=== PATIENT | male | born 1930 | race Caucasian/White ===

== ENCOUNTER 2018-08-16 10:15 | Inpatient (IN) ==
[2018-08-16 11:07] LABS: Baso # (Auto) 0.1 th/mm3 (0.0-0.2); Baso % (Auto) 0.8 % (0.0-2.0); Eos # (Auto) 0.3 th/mm3 (0.0-0.4); Eos % (Auto) 2.7 % (0.0-4.0); Hematocrit 21.2 % (39.0-51.0); Lymph # (Auto) 2.1 th/mm3 (1.0-4.8); Lymph % (Auto) 21.4 % (9.0-44.0); Mean Corpuscular HGB Conc 32.8 % (32.0-36.0); Mean Corpuscular Hemoglobin 26.7 pg (27.0-34.0); Mean Corpuscular Volume 81.6 fL (80.0-100.0); Mean Platelet Volume 7.1 fL (7.0-11.0); Mono # (Auto) 0.8 th/mm3 (0.0-0.9); Mono % (Auto) 7.8 % (0.0-8.0); Neut # (Auto) 6.5 th/mm3 (1.8-7.7); Neut % (Auto) 67.3 % (16.0-70.0); Platelet Count 374 th/mm3 (150-450); Red Cell Distribution Width 15.6 % (11.6-17.2); White Blood Count 9.6 th/mm3 (4.0-11.0)
[2018-08-16 11:19] LABS: Alanine Aminotransferase 20 U/L (12-78); Albumin 2.8 g/dL (3.4-5.0); Anion Gap 9 meq/L (5-15); Aspartate Aminotransferase 7 U/L (15-37); Blood Urea Nitrogen 12 mg/dL (7-18); Calcium 7.9 mg/dL (8.5-10.1); Carbon Dioxide 23.5 meq/L (21.0-32.0); Chloride 108 meq/L (98-107); Glomerular Filtration Rate 72 mL/min (>89); Glucose,Random 120 mg/dL (74-106); Potassium 3.8 meq/L (3.5-5.1); Sodium 140 meq/L (136-145)
[2018-08-16 11:24] LABS: Alkaline Phosphatase 68 U/L (45-117); Total Protein 6.3 g/dL (6.4-8.2); Troponin I 0.02 ng/mL (0.02-0.05)
--- NOTE | 2018-08-16 11:25 | XR ---
EXAM DATE: 08/16/2018 10:44 AM EDT AGE/SEX: 87 years / Male INDICATIONS: . Shortness of breath. CLINICAL DATA: This is the patient's initial encounter. Patient reports that signs and symptoms have been present for 1 day and indicates a pain score of 0/10. MEDICAL/SURGICAL HISTORY: Hypercholesterolemia. Hypertension. Cholecystectomy. COMPARISON: No prior exams available for comparison. FINDINGS: There is a trace right-sided pleural effusion with minimal by basilar airspace disease. Senescent int erstitial changes. The cardiomediastinal contours are unremarkable. Osseous structures are intact. CONCLUSION: 1. Trace right pleural effusion. 2. Minimal bibasilar airspace disease, presumably atelectasis. Electronically signed by: Bal Coronado MD 08/16/2018 11:23 AM EDT
[2018-08-16] MEDS ORDERED: Acetaminophen 325 MG Tablet PO PRN (12:27)
--- NOTE | 2018-08-16 12:56 | ED ---
HPI General Chief complaint: Respiratory Symptoms Stated complaint: SOB,Hip Complaint/Doctor Sent Time Seen by Provider: 08/16/18 10:42 Source: patient Mode of arrival: ambulatory Limitations: no limitations History of Present Illness HPI narrative: Patient is an 87-year-old male, past medical history significant for hypertension and hyperlipidemia, who presents with complaint of worsening fatigue and dyspnea over the last several weeks. Several days ago he was mowing the lawn and began to have pressure-like chest pain and dyspnea which resolved with rest. He states that he does not feel like he can do as much as he used to. This never happened before. No fevers nor chills. No cough nor congestion. No abdominal pain. Onset (ago): week(s) Radiation: non-radiation Severity: moderate Pain Consistency: intermittent Exacerbating factors: none Associated symptoms: Reports chest pain and shortness of breath Treatments prior to arrival: Reports none Related Data Home Medications Medication Instructions Recorded Confirmed amlodipine 10 mg PO DAILY 08/16/18 08/16/18 aspirin 81 mg PO DAILY 08/16/18 08/16/18 hydrochlorothiazide 12.5 mg PO DAILY 08/16/18 08/16/18 lisinopril 20 mg PO DAILY 08/16/18 08/16/18 simvastatin 20 mg PO QPM 08/16/18 08/16/18 Allergies Allergy/AdvReac Type Severity Reaction Status Date / Time No Known Allergies Allergy Verified 08/16/18 10:31 Review of Systems ROS: all other systems reviewed are negative [facility] Medical History Medical History HTN (hypertension) (Acute) High cholesterol (Acute) Surgical History Surgical History S/P cholecystectomy (Acute) Social History Social History Substance History: No History of Abuse Second Hand Smoke Exposure: No Smoking Status: Former smoker How Often Do You Have a Drink Containing Alcohol: 4 or more times a week Recent Travel in [facility] within the Last 8 Weeks: No Recent Out of Country Travel within the Last 8 Weeks: No Immunization History Tetanus Immunization: >5 Years Exam Narrative Exam Narrative: GENERAL: Well-appearing, elderly male in no acute distress SKIN: Focused skin assessment warm/dry. No rashes. HEAD: Atraumatic. Normocephalic. EYES: Pupils equal and round. No scleral icterus. No injection or drainage. ENT: No nasal bleeding or discharge. Mucous membranes pink and moist. NECK: Trachea midline. No JVD. CARDIOVASCULAR: Regular rate and rhythm. Systolic murmur auscultated which radiates to the carotids. Intact and equal peripheral pulses. RESPIRATORY: No accessory muscle use. Clear to auscultation. Breath sounds equal bilaterally. GASTROINTESTINAL: Abdomen soft, non-tender, nondistended. Hepatic and splenic margins not palpable. MUSCULOSKELETAL: No obvious deformities. No clubbing. No cyanosis. No edema. NEUROLOGICAL: Awake and alert. No obvious cranial nerve deficits. Motor grossly within normal limits. Normal sensation. Normal speech. PSYCHIATRIC: Appropriate mood and affect; insight and judgment normal. Course Initial Documented Vital Signs Temperature 98.5 F 08/16/18 10:18 Pulse Rate 80 08/16/18 10:18 Respiratory Rate 20 08/16/18 10:18 Blood Pressure 137/77 08/16/18 10:18 Pulse Oximetry 99 08/16/18 10:18 Last Documented Vital Signs Temperature 98.5 F 08/16/18 10:18 Pulse Rate 63 08/16/18 10:51 Respiratory Rate 16 08/16/18 10:51 Blood Pressure 130/58 L 08/16/18 10:51 Pulse Oximetry 97 08/16/18 10:51 Medical Decision Making MDM Narrative Medical decision making narrative: Patient is an 87-year-old male who presents with complaint of dyspnea on exertion with several weeks of fatigue. He appears well. EKG shows LVH but no other ST or T wave changes. Labs reveal anemia but no other findings. Chest x-ray shows atelectasis but is otherwise unremarkable. I spoke with Dr. Booth, hospitalist on-call, whom agreed to admission for possible symptomatic aortic stenosis. Medical Screen Exam Complete: Yes Emergency Medical Condition: Yes Differential Diagnosis Differential Diagnosis: Differential diagnosis includes but is not limited to aortic stenosis, acute coronary syndrome, anemia. Medical Records Medical records reviewed: Yes I reviewed the patient's medical records. Lab Data Lab results reviewed: Yes I reviewed the patient's lab results. Result diagrams: 08/16/18 10:45 08/16/18 10:45 Lab Results 08/16/18 08/16/18 08/16/18 Range/Units 10:45 10:45 10:45 WBC 9.6 (4.0-11.0) th/mm3 RBC 2.60 L (4.50-5.90) mil/mm3 Hgb 7.0 L (13.0-17.0) gm/dL Hct 21.2 L (39.0-51.0) % MCV 81.6 (80.0-100.0) fL MCH 26.7 L (27.0-34.0) pg MCHC 32.8 (32.0-36.0) % RDW 15.6 (11.6-17.2) % Plt Count 374 (150-450) th/mm3 MPV 7.1 (7.0-11.0) fL Neut % (Auto) 67.3 (16.0-70.0) % Lymph % (Auto) 21.4 (9.0-44.0) % [place] % (Auto) 7.8 (0.0-8.0) % Eos % (Auto) 2.7 (0.0-4.0) % Baso % (Auto) 0.8 (0.0-2.0) % Neut # (Auto) 6.5 (1.8-7.7) th/mm3 Lymph # (Auto) 2.1 (1.0-4.8) th/mm3 [place] # (Auto) 0.8 (0.0-0.9) th/mm3 Eos # (Auto) 0.3 (0.0-0.4) th/mm3 Baso # (Auto) 0.1 (0.0-0.2) th/mm3 WBC Differential . Differential Comment Auto diff final D-Dimer Quant (PE/DVT) 0.33 (0.00-0.50) mg/L FEU Sodium 140 (136-145) meq/L Potassium 3.8 (3.5-5.1) meq/L Chloride 108 H (98-107) meq/L Carbon Dioxide 23.5 (21.0-32.0) meq/L Anion Gap 9 (5-15) meq/L BUN 12 (7-18) mg/dL Creatinine 0.98 (0.60-1.30) mg/dL Estimated GFR 72 L (>89) mL/min Random Glucose 120 H (74-106) mg/dL Calcium 7.9 L (8.5-10.1) mg/dL Total Bilirubin 0.4 (0.2-1.0) mg/dL AST 7 L (15-37) U/L ALT 20 (12-78) U/L Alkaline Phosphatase 68 (45-117) U/L Troponin I 0.02 (0.02-0.05) ng/mL Total Protein 6.3 L (6.4-8.2) g/dL Albumin 2.8 L (3.4-5.0) g/dL Imaging Data Attestation: I personally reviewed and interpreted this imaging study as follows : My impression: Atelectasis. Radiologist's impression: Chest X-Ray 08/16/18 10:44 CONCLUSION: 1. Trace right pleural effusion. 2. Minimal bibasilar airspace disease, presumably atelectasis. ECG Data EKG Prior to Arrival: No Attestation: I personally reviewed and interpreted this ECG as follows: (Sinus rhythm at a rate of 64 bpm. [address] but no ST or T wave changes.) Discharge Plan Discharge Disposition Patient Disposition: 30 Still Patient Discharge Condition Condition: Stable Discharge Details Diagnosis: LONG (dyspnea on exertion), Heart murmur Physicians Team ED Provider: Sheryl Devine Primary Care Provider: Braden Small Attending Provider: Isreal Booth Other Providers: Magen Diaz Discharge Interventions Interventions: Vital Signs Last Done: 08/16/18 10:31 Status ED Status: Admitted Patient
[2018-08-16] MEDS ORDERED: Sodium Chlor 0.9% Inj 250 ML IV.SIG SCH (13:00)
--- NOTE | 2018-08-16 14:29 | P.CONGI ---
History of Present Illness Consult date: 08/16/08 Consult reason: Anemia Chief complaint: dyspnea on exertion, History of Present Illness: This is an 87-year-old obese male who came in the hospital for evaluation on of fatigue, dyspnea, and chest pain with dyspnea with increased activity. Patient denies any previous history of any heart disease and is currently on no blood thinners. Labs drawn and reviewed showed hemoglobin at 7 , normal WBC count and normal bilirubin and LFTs. Gastroenterology was consulted to assist with patient's symptomatic anemia and evaluate further with a plan of care. Patient does note dark melena stools for approximately 1-2 months and states that she noted bright red rectal bleeding x1 event approximately 2 weeks ago in the toilet. Patient does note history of constipation with bowel movements every other day and positive for straining. Patient is a fair to poor historian and along with daughter is assisting with history. Patient is positive for daily EtOH intake of at least 2-3 beers. Patient denies any previous gastro-workup with no previous colonoscopy or endoscopy. Patient denies any current nausea or vomiting and no dyspepsia or dysphasia he denies any bloating and no symptoms of reflux. Patient also denies any abdominal pain at rest or to light palpation. <Jane Mcginnis - Last Filed: 08/16/18 14:34> Review of Systems All other systems reviewed negative except as stated in HPI <Jane Mcginnis - Last Filed: 08/16/18 14:34> PMFSH - History History Provided By: Patient - Medical History Medical History: Medical History (Last Reviewed 08/16/18 @ 12:51 by Sheryl Devine MD) HTN (hypertension) High cholesterol - Surgical History Surgical History: Surgical History (Last Reviewed 08/16/18 @ 12:51 by Sheryl Devine MD) S/P cholecystectomy - Tobacco History Second Hand Smoke Exposure: No Tobacco Use In Past 30 Days: No Smoking Status: Former smoker - Alcohol History How Often Do You Have a Drink Containing Alcohol: 4 or more times a week - Substance Use History Substance History: No History of Abuse - Travel History Recent Travel in the [place] Within the Last 8 Weeks: No Recent Travel Out of the Country Within the Last 8 Weeks: No - Immunization History Tetanus Immunization: >5 Years <Jane Mcginnis - Last Filed: 08/16/18 14:34> - Medical History Medical History: Medical History (Last Reviewed 08/16/18 @ 12:51 by Sheryl Devine MD) HTN (hypertension) High cholesterol - Surgical History Surgical History: Surgical History (Last Reviewed 08/16/18 @ 12:51 by Sheryl Devine MD) S/P cholecystectomy <Joe,Magen E - Last Filed: 08/16/18 22:22> Medications and Allergies Active Medications: Active Medications Acetaminophen (Tylenol) 650 mg PO Q4H PRN PRN Reason: Temp > 100.4 Al Hydroxide/Mg Hydroxide (Milk Of Magnesia Liq) 30 ml PO Q12H PRN PRN Reason: Mild Constipation Sodium Chloride (Ns Inj) 250 mls @ 15 mls/hr IV.SIG ONCE ANTONIA Stop: 08/17/18 05:39 Ondansetron HCl (Zofran Inj) 4 mg IV.PUSH Q6H PRN PRN Reason: NAUSEA OR VOMITING Senna/Docusate Sodium (Debra-Colace) 1 tab PO BID ANTONIA Sodium Chloride (Ns Flush) 2 ml IV.FLUSH UNSCH PRN PRN Reason: FLUSH AFTER USING IV ACCESS <Jane Mcginnis - Last Filed: 08/16/18 14:34> Active Medications: Active Medications Acetaminophen (Tylenol) 650 mg PO Q4H PRN PRN Reason: Temp > 100.4 Al Hydroxide/Mg Hydroxide (Milk Of Magnesia Liq) 30 ml PO Q12H PRN PRN Reason: Mild Constipation Flumazenil (Romazecon Inj) 0.2 mg IV.PUSH Q1M PRN PRN Reason: OVERSEDATION Haloperidol Lactate (Haldol Inj) 1 mg IV.PUSH Q15M PRN PRN Reason: for severe agitation Sodium Chloride (Ns Inj) 250 mls @ 15 mls/hr IV.SIG ONCE ANTONIA Stop: 08/17/18 05:39 Last Admin: 08/16/18 16:48 Dose: 15 mls/hr Lorazepam (Ativan) 2 mg PO Q2H PRN PRN Reason: for CIWA 11-14 Lorazepam (Ativan Inj) 2 mg IV.PUSH Q2H PRN PRN Reason: for CIWA 11-14 Lorazepam (Ativan Inj) 2 mg IV.PUSH Q1H PRN PRN Reason: for CIWA 15-20 Lorazepam (Ativan Inj) 2 mg IV.PUSH Q15M PRN PRN Reason: for CIWA > 20 Lorazepam (Ativan) 1 mg PO Q4H PRN PRN Reason: for CIWA 8-10 Lorazepam (Ativan Inj) 1 mg IV.PUSH Q4H PRN PRN Reason: for CIWA 8-10 Ondansetron HCl (Zofran Inj) 4 mg IV.PUSH Q6H PRN PRN Reason: NAUSEA OR VOMITING Polyethylene Glycol (Miralax) 17 gm PO DAILY [facility] Last Admin: 08/16/18 16:48 Dose: 17 gm Senna/Docusate Sodium (Debra-Colace) 1 tab PO BID [facility] Last Admin: 08/16/18 20:31 Dose: 1 tab Sodium Chloride (Ns Flush) 2 ml IV.FLUSH UNSCH PRN PRN Reason: FLUSH AFTER USING IV ACCESS Last Admin: 08/16/18 20:32 Dose: 2 ml <Magen Diaz E - Last Filed: 08/16/18 22:22> Allergies Allergy/AdvReac Type Severity Reaction Status Date / Time No Known Allergies Allergy Verified 08/16/18 10:31 Home Medications Medication Instructions Recorded Confirmed Type amlodipine 10 mg PO DAILY 08/16/18 08/16/18 History aspirin 81 mg PO DAILY 08/16/18 08/16/18 History hydrochlorothiazide 12.5 mg PO DAILY 08/16/18 08/16/18 History lisinopril 20 mg PO DAILY 08/16/18 08/16/18 History simvastatin 20 mg PO QPM 08/16/18 08/16/18 History Exam Vital signs: Vital Signs 08/16/18 10:18 08/16/18 10:31 08/16/18 10:51 Temperature 98.5 F Pulse Rate 80 63 63 Respiratory Rate 20 20 16 Blood Pressure 137/77 130/58 L 130/58 L Pulse Oximetry 99 97 97 08/16/18 13:29 Temperature Pulse Rate 54 L Respiratory Rate 19 Blood Pressure 124/57 L Pulse Oximetry 96 Intake & Output 08/15/18 08/16/18 08/16/18 18:59 06:59 18:59 Weight 85.275 kg - Constitutional mild distress, morbidly obese, disheveled (Fair to poor historian), cooperative - Routine HEENT Exam Head: Present: normocephalic ENT: Present: mucous membranes dry (Pale) - Routine Respiratory Exam Present: accessory muscle use (Low volumes mild dyspneic exertion at rest), diminished air movement - Routine Cardiovascular Exam Present: murmur ([place] systolic murmur) - Routine Abdominal Exam Present: soft, normoactive bowel sounds (No abdominal pain to light palpation) - Routine Skin Exam Present: intact, pallor - Routine Neurological Exam Present: alert <Jane Mcginnis - Last Filed: 08/16/18 14:34> Vital signs: Vital Signs 08/16/18 10:18 08/16/18 10:31 08/16/18 10:51 Temperature 98.5 F Pulse Rate 80 63 63 Respiratory Rate 20 20 16 Blood Pressure 137/77 130/58 L 130/58 L Pulse Oximetry 99 97 97 08/16/18 13:29 08/16/18 16:15 08/16/18 17:33 Temperature 96 F L 96 F L Pulse Rate 54 L 58 L 58 L Respiratory Rate 19 18 18 Blood Pressure 124/57 L 140/70 140/70 Pulse Oximetry 96 95 95 08/16/18 20:00 08/16/18 21:05 08/16/18 21:24 Temperature 97.8 F 97.8 F 97.8 F Pulse Rate 56 L 60 58 L Respiratory Rate 16 16 16 Blood Pressure 116/56 L 122/59 L 120/60 Pulse Oximetry 96 94 L 94 L Intake & Output 08/16/18 08/16/18 08/17/18 06:59 18:59 06:59 Intake Total 0 / 0 450 / 450 Balance 0 / 0 450 / 450 Weight 85.275 kg Intake: Other 50 / 50 Rbc As-3 Leukoreduced Unit 50 / 50 [id number] Intake (Blood Product) Amt 0 / 0 400 / 400 Rbc As-3 Leukoreduced Unit 0 / 0 [id number] Rbc As-3 Leukoreduced Unit 0 / 0 400 / 400 [id number] Other: Weight On Admission 82.9 kg <Magen Diaz - Last Filed: 08/16/18 22:22> Results - Labs CBC & Chem 7: 08/16/18 10:45 08/16/18 10:45 Labs: Laboratory Results - last 24 hr 08/16/18 08/16/18 08/16/18 10:45 10:45 10:45 WBC 9.6 RBC 2.60 L Hgb 7.0 L Hct 21.2 L MCV 81.6 MCH 26.7 L MCHC 32.8 RDW 15.6 Plt Count 374 MPV 7.1 Neut % (Auto) 67.3 Lymph % (Auto) 21.4 [place] % (Auto) 7.8 Eos % (Auto) 2.7 Baso % (Auto) 0.8 Neut # (Auto) 6.5 Lymph # (Auto) 2.1 [place] # (Auto) 0.8 Eos # (Auto) 0.3 Baso # (Auto) 0.1 WBC Differential . Differential Comment Auto diff final D-Dimer Quant (PE/DVT) 0.33 Sodium 140 Potassium 3.8 Chloride 108 H Carbon Dioxide 23.5 Anion Gap 9 BUN 12 Creatinine 0.98 Estimated GFR 72 L Random Glucose 120 H Calcium 7.9 L Total Bilirubin 0.4 AST 7 L ALT 20 Alkaline Phosphatase 68 Troponin I 0.02 Total Protein 6.3 L Albumin 2.8 L Blood Type MTS Gel Crossmatch 08/16/18 13:30 WBC RBC Hgb Hct MCV MCH MCHC RDW Plt Count MPV Neut % (Auto) Lymph % (Auto) [place] % (Auto) Eos % (Auto) Baso % (Auto) Neut # (Auto) Lymph # (Auto) [place] # (Auto) Eos # (Auto) Baso # (Auto) WBC Differential Differential Comment D-Dimer Quant (PE/DVT) Sodium Potassium Chloride Carbon Dioxide Anion Gap BUN Creatinine Estimated GFR Random Glucose Calcium Total Bilirubin AST ALT Alkaline Phosphatase Troponin I Total Protein Albumin Blood Type AB Positive MTS Gel Crossmatch See Detail - Imaging Impressions Chest X-Ray 08/16/18 10:44 CONCLUSION: 1. Trace right pleural effusion. 2. Minimal bibasilar airspace disease, presumably atelectasis. <Jane Mcginnis - Last Filed: 08/16/18 14:34> - Labs CBC & Chem 7: 08/16/18 10:45 08/16/18 10:45 Labs: Laboratory Results - last 24 hr 08/16/18 08/16/18 08/16/18 10:45 10:45 10:45 WBC 9.6 RBC 2.60 L Hgb 7.0 L Hct 21.2 L MCV 81.6 MCH 26.7 L MCHC 32.8 RDW 15.6 Plt Count 374 MPV 7.1 Neut % (Auto) 67.3 Lymph % (Auto) 21.4 [place] % (Auto) 7.8 Eos % (Auto) 2.7 Baso % (Auto) 0.8 Neut # (Auto) 6.5 Lymph # (Auto) 2.1 [place] # (Auto) 0.8 Eos # (Auto) 0.3 Baso # (Auto) 0.1 WBC Differential . Differential Comment Auto diff final D-Dimer Quant (PE/DVT) 0.33 Sodium 140 Potassium 3.8 Chloride 108 H Carbon Dioxide 23.5 Anion Gap 9 BUN 12 Creatinine 0.98 Estimated GFR 72 L Random Glucose 120 H Calcium 7.9 L Total Bilirubin 0.4 AST 7 L ALT 20 Alkaline Phosphatase 68 Total Creatine Kinase Troponin I 0.02 Total Protein 6.3 L Albumin 2.8 L Blood Type Antibody Screen MTS Gel Crossmatch Bld Prod Order Comment 08/16/18 08/16/18 13:30 19:08 WBC RBC Hgb Hct MCV MCH MCHC RDW Plt Count MPV Neut % (Auto) Lymph % (Auto) [place] % (Auto) Eos % (Auto) Baso % (Auto) Neut # (Auto) Lymph # (Auto) [place] # (Auto) Eos # (Auto) Baso # (Auto) WBC Differential Differential Comment D-Dimer Quant (PE/DVT) Sodium Potassium Chloride Carbon Dioxide Anion Gap BUN Creatinine Estimated GFR Random Glucose Calcium Total Bilirubin AST ALT Alkaline Phosphatase Total Creatine Kinase 89 Troponin I 0.02 Total Protein Albumin Blood Type AB Positive Antibody Screen Negative MTS Gel Crossmatch See Detail Bld Prod Order Comment - Imaging Impressions Chest X-Ray 08/16/18 10:44 CONCLUSION: 1. Trace right pleural effusion. 2. Minimal bibasilar airspace disease, presumably atelectasis. <Magen Diaz E - Last Filed: 08/16/18 22:22> Assessment and Plan - Plan 87-year-old obese male who came in the hospital for evaluation on 08/16/2018 of fatigue, dyspnea, and chest pain with dyspnea with increased activity. Patient denies any previous history of any heart disease and is currently on no blood thinners. Labs drawn and reviewed showed hemoglobin at 7, normal WBC count and normal bilirubin and LFTs. Gastroenterology was consulted to assist with patient's symptomatic anemia and evaluate further with a plan of care. Patient does note dark melena stools for approximately 1-2 months and states that she noted bright red rectal bleeding x1 event approximately 2 weeks ago in the toilet. Patient does note history of constipation with bowel movements every other day and positive for straining. Patient is a fair to poor historian and along with daughter is assisting with history. Patient is positive for daily EtOH intake of at least 2-3 beers. Patient denies any previous gastro- workup with no previous colonoscopy or endoscopy. Patient denies any current nausea or vomiting and no dyspepsia or dysphasia he denies any bloating and no symptoms of reflux. Patient also denies any abdominal pain at rest or to light palpation. Symptomatic anemia hemoglobin 7 on admission patient is preparing to receive transfusion. This is probably due to upper and lower GI bleeds. Melena stools for at least 1-2 months History of constipation normal bowel regimen every other day with straining Bright red rectal bleeding x1 event approximately 2 weeks ago No history of EGD or colonoscopy or GI workup ever EtOH daily usage with 2-3 beers a day, bilirubin and LFTs are normal Chest pain and dyspnea with exertion noted on admission, cooing systolic murmur probably related to aortic valvular disease Plan Diet cardiac diet for now PPI IV twice daily Check Hemoccult, pending Monitor labs and transfuse as needed, call GI for any acute obvious bleeding Patient will need cardiac workup and clearance before any further GI testing can be done. Once cleared patient will need EGD and colonoscopy Bowel regimen will start MiraLAX daily Further recommendations to follow Patient was seen per myself and Dr. Diaz, note was written on his behalf <Jane Mcginnis M - Last Filed: 08/16/18 14:34> - Plan Patient seen and examined Agree with above history and physical Continue with current supportive care Monitor labs <Magen Diaz - Last Filed: 08/16/18 22:22>
--- NOTE | 2018-08-16 16:19 | ECHRPT ---
Indication: SHORTNESS OF BREATH CONCLUSIONS The left ventricular systolic function is grossly normal on limited imaging. Mild concentric left ventricular hypertrophy. The left ventricular systolic function is normal with an estimated ejection fraction in the range of 55-60%. A possible atrial level shunt is demonstrated by color flow Doppler interrogation, clinical correlat ion recommended. The aortic root and proximal ascending aorta are not well visualized. Mild mitral annular calcification. Mild mitral valve regurgitation. Aortic valve sclerosis is present. Aortic valve mean gradient is 42 mmHg. Mild aortic valve regurgitation. Diffuse calcification of the aortic valve. Severe aortic valve stenosis. Aortic valve area is 0.54 cm. There is mild tricuspid valve regurgitation. The estimated pulmonary arterial pressure is 55.4 mmHg. There is less than 50% respiratory change in dimension of the inferior vena cava (abnormal). BP: / HR: Rhythm: Sinus MEASUREMENTS (Male / Female) Normal Values Technical Quality:Fair 2D ECHO LV Diastolic Diameter PLAX 5.2 cm 4.2 - 5.9 / 3.9 - 5.3 cm LV Systolic Diameter PLAX 3.9 cm IVS Diastolic Thickness 1.1 cm 0.6 - 1.0 / 0.6 - 0.9 cm LVPW Diastolic Thickness 1.1 cm 0.6 - 1.0 / 0.6 - 0.9 cm LV Relative Wall Thickness 0.4 RV Internal Dim ED PLAX 2.4 cm LVOT Diameter 2.1 cm Aortic Root Diameter 3.4 cm LA Systolic Diameter LX 3.4 cm 3.0 - 4.0 / 2.7 - 3.8 cm DOPPLER AV Peak Velocity 451.0 cm/s AV Peak Gradient 81.0 mmHg AV Mean Gradient 42.0 mmHg AV Velocity Time Integral 117.0 cm AI Peak Velocity 353.0 cm/s AI Peak Gradient 49.8 mmHg AI Pressure Half Time 359.0 ms LVOT Peak Velocity 75.2 cm/s LVOT Peak Gradient 2.3 mmHg LVOT Velocity Time Integral 18.2 cm AV Area Cont Eq vti 0.5 cm AV Area Cont Eq pk 0.6 cm Mitral E Point Velocity 110.0 cm/s Mitral A Point Velocity 56.8 cm/s Mitral E to A Ratio 1.9 LV E' Lateral Velocity 11.5 cm/s Mitral E to LV E' Lateral Ratio 9.6 LV E' Septal Velocity 6.1 cm/s Mitral E to LV E' Septal Ratio 17.9 TR Peak Velocity 337.0 cm/s TR Peak Gradient 45.0 mmHg Right Atrial Pressure 10.0 mmHg Pulmonary Artery Systolic Pressu 55.4 mmHg Right Ventricular Systolic Press 55.4 mmHg PV Peak Velocity 79.7 cm/s PV Peak Gradient 2.5 mmHg FINDINGS LEFT VENTRICLE The left ventricular systolic function is grossly normal on limited imaging. Mild concentric left ventricular hypertrophy. The left ventricular systolic function is normal with an estimated ejection fraction in the range of 55-60%. RIGHT VENTRICLE Normal right ventricular size and systolic function. LEFT ATRIUM The left atrial size is normal. RIGHT ATRIUM The right atrial size is normal. ATRIAL SEPTUM A possible atrial level shunt is demonstrated by color flow Doppler interrogation, clinical correlat ion recommended. AORTA The aortic root and proximal ascending aorta are not well visualized. MITRAL VALVE Mild mitral annular calcification. Mild mitral valve regurgitation. AORTIC VALVE Aortic valve sclerosis is present. Aortic valve mean gradient is 42 mmHg. Mild aortic valve regurgitation. Trileaflet aortic valve. Diffuse calcification of the aortic valve. Severe aortic valve stenosis. Aortic valve area is 0.54 cm. TRICUSPID VALVE There is mild tricuspid valve regurgitation. The estimated pulmonary arterial pressure is 55.4 mmHg. PULMONARY VALVE No pulmonary valve regurgitation or stenosis. VESSELS There is less than 50% respiratory change in dimension of the inferior vena cava (abnormal). PERICARDIUM No pericardial effusion. Andrae Calzada MD, FACC (Electronically Signed) Final Date:16 August 2018 16:18
[2018-08-16] MEDS: Polyethylene Glycol 3350 17 GM Packet PO SCH (16:48)
--- NOTE | 2018-08-16 16:52 | ECG ---
Date Performed: 08/16/2018 Time Performed: 10:30:05 PTAGE: 87 years EKG: Sinus rhythm LEFT VENTRICULAR HYPERTROPHY AND ST-T CHANGE Early R-wave transition ABNORMAL ECG PREVIOUS TRACING : 03/06/2013 04.21 Compared to previous tracing, patient now has criteria for left ventricular hypertrophy. The early R-wave transition is new. The PVC's have resolved. Clinical c orrelation is recommended DOCTOR: Sulma Piña Interpretating Date/Time 08/16/2018 16:45:01
--- NOTE | 2018-08-16 17:02 | P.CONCA ---
History of Present Illness Service: Cardiology Consult date: 08/16/18 Reason for Consult: Severe aortic valve stenosis Primary Care Provider: Braden Small MD Chief Complaint: Weakness and shortness of breath History of Present Illness: This is an 87-year-old gentleman without past medical history of known heart disease who presented to the emergency department for evaluation of progressive fatigue, dyspnea, and intermittent chest pain. Apparently patient reports worsening symptoms with exertion of substernal chest pain or shortness of breath. He is also had some lightheadedness and generalized weakness. He was noted upon arrival to the emergency department to be hemodynamically stable. Laboratory studies revealed severe anemia with a hemoglobin of 7.0 g/dL. Apparently patient has had several dark stools for the past 1-2 months and had noticed only one episode of some bright red blood. Patient does have daily alcohol about 2-3 beers. Apparently I saw the patient in the office about 4-5 years ago for preoperative clearance related to gallbladder surgery. He is not followed up with a arm maker since then. Does not recall any recent stress test or heart catheterization. Transthoracic echocardiogram revealed severe aortic valve stenosis were consulted for further recommendations. Review of Systems All other systems reviewed negative except as stated in HPI PMFSH - History History Provided By: Patient - Medical History Medical History: Medical History (Last Reviewed 08/16/18 @ 12:51 by Sheryl Devine MD) HTN (hypertension) High cholesterol - Surgical History Surgical History: Surgical History (Last Reviewed 08/16/18 @ 12:51 by Sheryl Devine MD) S/P cholecystectomy - Tobacco History Second Hand Smoke Exposure: No Tobacco Use In Past 30 Days: No Smoking Status: Former smoker - Alcohol History How Often Do You Have a Drink Containing Alcohol: 4 or more times a week - Substance Use History Substance History: No History of Abuse - Travel History Recent Travel in the [place] Within the Last 8 Weeks: No Recent Travel Out of the Country Within the Last 8 Weeks: No - Immunization History Tetanus Immunization: >5 Years Medications and Allergies Active Medications: Active Medications Acetaminophen (Tylenol) 650 mg PO Q4H PRN PRN Reason: Temp > 100.4 Al Hydroxide/Mg Hydroxide (Milk Of Magnesia Liq) 30 ml PO Q12H PRN PRN Reason: Mild Constipation Sodium Chloride (Ns Inj) 250 mls @ 15 mls/hr IV.SIG ONCE ANTONIA Stop: 08/17/18 05:39 Ondansetron HCl (Zofran Inj) 4 mg IV.PUSH Q6H PRN PRN Reason: NAUSEA OR VOMITING Polyethylene Glycol (Miralax) 17 gm PO DAILY ANTONIA Senna/Docusate Sodium (Debra-Colace) 1 tab PO BID ANTONIA Sodium Chloride (Ns Flush) 2 ml IV.FLUSH UNSCH PRN PRN Reason: FLUSH AFTER USING IV ACCESS Allergies Allergy/AdvReac Type Severity Reaction Status Date / Time No Known Allergies Allergy Verified 08/16/18 10:31 Home Medications Medication Instructions Recorded Confirmed Type amlodipine 10 mg PO DAILY 08/16/18 08/16/18 History aspirin 81 mg PO DAILY 08/16/18 08/16/18 History hydrochlorothiazide 12.5 mg PO DAILY 08/16/18 08/16/18 History lisinopril 20 mg PO DAILY 08/16/18 08/16/18 History simvastatin 20 mg PO QPM 08/16/18 08/16/18 History Exam Vital signs: Vital Signs 08/16/18 10:18 08/16/18 10:31 08/16/18 10:51 Temperature 98.5 F Pulse Rate 80 63 63 Respiratory Rate 20 20 16 Blood Pressure 137/77 130/58 L 130/58 L Pulse Oximetry 99 97 97 08/16/18 13:29 Temperature Pulse Rate 54 L Respiratory Rate 19 Blood Pressure 124/57 L Pulse Oximetry 96 Intake & Output 08/15/18 08/16/18 08/16/18 18:59 06:59 18:59 Weight 85.275 kg - Constitutional no acute distress - Routine Neck Exam Absent: JVD - Routine Respiratory Exam Present: CTA bilaterally - Routine Cardiovascular Exam Present: RRR, murmur - Routine Abdominal Exam Present: soft, normoactive bowel sounds - Routine Extremities Exam Absent: edema - Routine Neurological Exam Absent: sensory deficit, motor deficit Results 08/16/18 10:45 08/16/18 10:45 Cardiac Enzymes 08/16/18 Range/Units 10:45 AST 7 L (15-37) U/L Troponin I 0.02 (0.02-0.05) ng/mL CBC 08/16/18 Range/Units 10:45 WBC 9.6 (4.0-11.0) th/mm3 RBC 2.60 L (4.50-5.90) mil/mm3 Hgb 7.0 L (13.0-17.0) gm/dL Hct 21.2 L (39.0-51.0) % Plt Count 374 (150-450) th/mm3 Neut # (Auto) 6.5 (1.8-7.7) th/mm3 Lymph # (Auto) 2.1 (1.0-4.8) th/mm3 Kimball # (Auto) 0.8 (0.0-0.9) th/mm3 Eos # (Auto) 0.3 (0.0-0.4) th/mm3 Baso # (Auto) 0.1 (0.0-0.2) th/mm3 Comprehensive Metabolic Panel 08/16/18 Range/Units 10:45 Sodium 140 (136-145) meq/L Potassium 3.8 (3.5-5.1) meq/L Chloride 108 H (98-107) meq/L Carbon Dioxide 23.5 (21.0-32.0) meq/L BUN 12 (7-18) mg/dL Creatinine 0.98 (0.60-1.30) mg/dL Calcium 7.9 L (8.5-10.1) mg/dL AST 7 L (15-37) U/L ALT 20 (12-78) U/L Alkaline Phosphatase 68 (45-117) U/L Total Protein 6.3 L (6.4-8.2) g/dL Albumin 2.8 L (3.4-5.0) g/dL Intake and Output 08/16/18 08/16/18 08/16/18 06:59 14:59 22:59 Other: Weight 85.275 kg Patient Weight 08/17/18 06:59 Weight 85.275 kg - Imaging and Cardiology Imaging: Impressions Chest X-Ray 08/16/18 10:44 CONCLUSION: 1. Trace right pleural effusion. 2. Minimal bibasilar airspace disease, presumably atelectasis. Assessment and Plan - Assessment (1) Severe aortic valve stenosis Code(s): I35.0 - Nonrheumatic aortic (valve) stenosis Status: Acute Plan: Transthoracic echocardiogram revealed severely aortic valve stenosis with mean gradient greater than 40 mmHg and aortic valve area less than 1.0 cm. Patient reports symptoms of fatigue, shortness of breath, and chest pain in the setting of severe anemia which is likely exacerbating the demand mediated symptoms. This point the patient needs to have gastrointestinal workup which likely includes EGD and colonoscopy. Patient would be a candidate for moderate or deep sedation but would not be a candidate for general anesthesia. Avoid aggressive hydration and consider low-dose Lasix in between units of packed red blood cells. Patient is going to need workup for the aortic valve which was consistent with cardiac catheterization, especially given symptoms. We may be able to pursue this on an outpatient basis once the whole GI workup and treatment is completed. We will then have to consider whether the patient is a candidate for aortic valve replacement, either via surgical or trans-catheter percutaneous approach. (2) Anemia Code(s): D64.9 - Anemia, unspecified Status: Acute (3) Gastrointestinal bleeding Code(s): K92.2 - Gastrointestinal hemorrhage, unspecified Status: Acute
--- NOTE | 2018-08-16 18:06 | P.HPIM ---
History of Present Illness Primary Care Physician: Braden Small MD Chief Complaint: Weakness and shortness of breath History of Present Illness: Patient is an 79-year-old male with history of hypertension and hyperlipidemia. Patient presented to the ER with complaint of fatigue and worsening shortness of breath over the last several weeks. Patient complains of having had episode of chest pressure and worsening shortness of breath while attempting to mow his lawn. Symptoms improved with rest. Patient denies previous episodes of similar. In the ER, patient was noted to have a murmur consistent with aortic stenosis. Echocardiogram confirms severe aortic valve stenosis. Patient appears pale. Hemoglobin 7.0 g/dL noted on admission. Patient denies bright red blood per rectum or dark tarry stools. Patient admitted to [facility] for further evaluation and treatment. PMH: - HTN - Hyperlipidemia PSH: -Cholecystectomy FHX: Noncontributory SHX: - lives with - daughter lives locally - No tobacco use - occasional alcoholic beverage - NO illicit street drugs ALL: NKDA Medications: amlodipine 10 mg PO DAILY 08/16/18 08/16/18 History aspirin 81 mg PO DAILY 08/16/18 08/16/18 History hydrochlorothiazide 12.5 mg PO DAILY 08/16/18 08/16/18 History lisinopril 20 mg PO DAILY 08/16/18 08/16/18 History simvastatin 20 mg PO QPM 08/16/18 08/16/18 History - Diagnosis (1) LONG (dyspnea on exertion) (2) Heart murmur (3) Severe aortic valve stenosis (4) Anemia Inpatient Certification: I certify that the inpatient services were ordered in accordance with Medicare regulations governing the order. This includes certification that hospital inpatient services are reasonable and necessary and in the case of services not specified as inpatient-only under 42 CFR 419.22(n), that they are appropriately provided as inpatient services in accordance to with the 2-midnight benchmark under 43 CFR 412.3(e) Estimated Total Length of Stay (Days): 3 Plans for Post Hospital Care: Not yet determined Review of Systems Constitutional: Denies anorexia, Denies body ache(s), Denies chills, Denies fever(s), Denies night sweats, Denies poor appetite, Denies weight gain, Denies weight loss Eyes: Denies blind spots, Denies blurry vision, Denies change in vision, Denies double vision, Denies discharge, Denies loss of peripheral vision, Denies loss of vision, Denies other visual disturbances, Denies pain Ears, Nose, Mouth, and Throat: Denies bleeding gums, Denies difficulty swallowing, Denies dizziness, Denies headache(s), Denies hearing loss, Denies pain with swallowing, Denies poor balance, Denies ringing in the ears, Denies sore throat, Denies throat swelling, Denies tongue swelling Cardiovascular: Denies chest pain, Denies excessive sweating, Denies fainting, Denies fast heart rate, Denies generalized swelling, Denies irregular heart rhythm, Denies leg swelling, Denies lightheadedness, Denies slow heart rate Respiratory: Reports shortness of breath, Denies cough, Denies snoring, Denies wheezing Gastrointestinal: Denies abdominal pain, Denies belching, Denies black, tarry stools, Denies bright, red blood in stools, Denies change in bowel habits, Denies change in stools, Denies coffee ground vomit, Denies constipation, Denies cramping, Denies difficulty swallowing, Denies heartburn, Denies incontinent of stools, Denies loose stools, Denies nausea, Denies pain with swallowing, Denies vomiting, Denies vomiting blood Genitourinary: Denies blood in urine, Denies difficulty urinating, Denies painful urination, Denies side pain, Denies frequent nighttime urination, Denies urinary frequency, Denies urinary hesitancy, Denies urinary incontinence , Denies urinary urgency Musculoskeletal: Denies abnormal walking, Denies back pain, Denies body aches, Denies decreased muscle mass, Denies joint pain, Denies joint swelling, Denies muscle weakness, Denies neck pain, Denies numbness, Denies stiffness, Denies tingling Skin/Breast: Denies bleeding lesions, Denies change in skin color, Denies changing lesions, Denies itching, Denies lesions, Denies new lesions, Denies non -healing lesions, Denies redness, Denies sensitivity to light, Denies rash, Denies skin pain, Denies skin swelling, Denies skin ulcer, Denies sores, Denies unusual bruising, Denies wounds, Denies yellowing of the skin Neurologic: Denies abnormal hearing, Denies abnormal movements, Denies abnormal speech, Denies abnormal walking, Denies behavioral changes, Denies burning sensations, Denies confusion, Denies dizziness, Denies fainting, Denies frequent falls, Denies headache(s), Denies lack of coordination, Denies localized weakness, Denies loss of vision, Denies memory loss, Denies numbness, Denies other visual disturbances, Denies radiating pain, Denies restless legs, Denies convulsions, Denies seizure-like activity, Denies sensory deficit, Denies tingling/numbness/burning sensations, Denies tremor(s), Denies unsteadiness, Denies weakness Psychiatric: Denies abnormal sleep pattern, Denies anxiety, Denies behavioral changes, Denies change in appetite, Denies confusion, Denies depression, Denies difficulty concentrating, Denies hearing things others do not hear, Denies irritability, Denies lack of enjoyment, Denies memory loss, Denies mood swings, Denies panic attacks, Denies paranoia, Denies seeing things others do not see, Denies thoughts of hurting/killing others, Denies thoughts of hurting/killing yourself Endocrine: Denies cold intolerance, Denies excessive sweating, Denies fatigue, Denies flushing, Denies heat intolerance, Denies increased hunger, Denies increased thirst, Denies increased urination, Denies rapid, pounding, or irregular heartbeat Hematologic/Lymphatic: Denies easy bleeding, Denies easy bruising, Denies enlarged lymph nodes Allergic/Immunologic: Denies hives, Denies lip swelling, Denies throat swelling , Denies wheezing PMFSH - History History Provided By: Patient - Medical History Medical History: Medical History (Last Reviewed 08/19/18 @ 07:47 by Yoly Tobias) HTN (hypertension) High cholesterol - Surgical History Surgical History: Surgical History (Last Reviewed 08/19/18 @ 07:47 by Yoly Tobias) S/P cholecystectomy - Tobacco History Second Hand Smoke Exposure: No Tobacco Use In Past 30 Days: No Smoking Status: Former smoker - Alcohol History How Often Do You Have a Drink Containing Alcohol: 4 or more times a week - Substance Use History Substance History: No History of Abuse - Travel History Recent Travel in the [place] Within the Last 8 Weeks: No Recent Travel Out of the Country Within the Last 8 Weeks: No - Immunization History Tetanus Immunization: >5 Years Medications and Allergies Active Medications: Active Medications Acetaminophen (Tylenol) 650 mg PO Q4H PRN PRN Reason: Temp > 100.4 Al Hydroxide/Mg Hydroxide (Milk Of Ej Liq) 30 ml PO Q12H PRN PRN Reason: Mild Constipation Sodium Chloride (Ns Inj) 250 mls @ 15 mls/hr IV.SIG ONCE ANTONIA Stop: 08/17/18 05:39 Last Admin: 08/16/18 16:48 Dose: 15 mls/hr Ondansetron HCl (Zofran Inj) 4 mg IV.PUSH Q6H PRN PRN Reason: NAUSEA OR VOMITING Polyethylene Glycol (Miralax) 17 gm PO DAILY ANTONIA Last Admin: 08/16/18 16:48 Dose: 17 gm Senna/Docusate Sodium (Debra-Colace) 1 tab PO BID ANTONIA Sodium Chloride (Ns Flush) 2 ml IV.FLUSH UNSCH PRN PRN Reason: FLUSH AFTER USING IV ACCESS Allergies Allergy/AdvReac Type Severity Reaction Status Date / Time No Known Allergies Allergy Verified 08/16/18 10:31 Home Medications Medication Instructions Recorded Confirmed Type amlodipine 10 mg PO DAILY 08/16/18 08/16/18 History aspirin 81 mg PO DAILY 08/16/18 08/16/18 History hydrochlorothiazide 12.5 mg PO DAILY 08/16/18 08/16/18 History lisinopril 20 mg PO DAILY 08/16/18 08/16/18 History simvastatin 20 mg PO QPM 08/16/18 08/16/18 History Exam Vital signs: 08/16/18 13:29 08/16/18 16:15 08/16/18 17:33 Temperature 96 F L 96 F L Pulse Rate 54 L 58 L 58 L Respiratory Rate 19 18 18 Blood Pressure 124/57 L 140/70 140/70 Pulse Oximetry 96 95 95 Narrative: GENERAL: This is a well-nourished, well-developed patient, in no apparent distress. CARDIOVASCULAR: regular, harsh LUDMILA with radiation to right chest RESPIRATORY: Clear to auscultation. Breath sounds equal bilaterally. No wheezes , rales, or rhonchi. GASTROINTESTINAL: Abdomen soft, non-tender, nondistended. Normal active bowel sounds MUSCULOSKELETAL: Extremities without clubbing, cyanosis, or edema. NEURO: Alert & Oriented x4 to person, place, time, situation. Moves all ext x4 Results - Labs CBC & Chem 7: 08/18/18 09:00 08/18/18 09:00 - Imaging Chest X-Ray 08/16/18 10:44 1. Trace right pleural effusion. 2. Minimal bibasilar airspace disease, presumably atelectasis. Caprini VTE Risk Assessment Caprini VTE Risk Assessment: Moderate/High Risk (score >= 2) Caprini Risk Assessment Model: Point Value = 1 Point Value = 2 Point Value = 3 Point Value = 5 Age 41-60 Minor surgery BMI > 25 kg/m2 Swollen legs Varicose veins or History of unexplained or recurrent spontaneous Oral contraceptives or hormone replacement Sepsis (< 1 month) Serious lung disease, including pneumonia (< 1 month) Abnormal pulmonary function Acute myocardial infarction Congestive heart failure (< 1 month) History of inflammatory bowel disease Medical patient at bed rest Age 61-74 Arthroscopic surgery Major open surgery (> 45 min) Laparoscopic surgery (> 45 min) Malignancy Confined to bed (> 72 hours) Immobilizing plaster cast Central venous access Age >= 75 History of VTE Family history of VTE Factor V Leiden Prothrombin [id number] Lupus anticoagulant Anticardiolipin antibodies Elevated serum homocysteine Heparin-induced thrombocytopenia Other congenital or acquired thrombophilia Stroke (< 1 month) Elective arthroplasty Hip, pelvis, or leg fracture Acute spinal cord injury (< 1 month) Prophylaxis Regimen: Total Risk Factor Score Risk Level Prophylaxis Regimen 0-1 Low Early ambulation 2 Moderate Order ONE of the following: *Sequential Compression Device (SCD) *Heparin 5000 units SQ BID 3-4 Higher Order ONE of the following medications: *Heparin 5000 units SQ TID *Enoxaparin/Lovenox 40 mg SQ daily (WT < 150 kg, CrCl > 30 mL/min) *Enoxaparin/Lovenox 30 mg SQ daily (WT < 150 kg, CrCl > 10-29 mL/min) *Enoxaparin/Lovenox 30 mg SQ BID (WT < 150 kg, CrCl > 30 mL/min) AND/OR *Sequential Compression Device (SCD) 5 or more Highest Order ONE of the following medications: *Heparin 5000 units SQ TID (Preferred with Epidurals) *Enoxaparin/Lovenox 40 mg SQ daily (WT < 150 kg, CrCl > 30 mL/min) *Enoxaparin/Lovenox 30 mg SQ daily (WT < 150 kg, CrCl > 10-29 mL/min) *Enoxaparin/Lovenox 30 mg SQ BID (WT < 150 kg, CrCl > 30 mL/min) AND *Sequential Compression Device (SCD) Assessment and Plan - Assessment (1) LONG (dyspnea on exertion) Code(s): R06.09 - Other forms of dyspnea Status: Acute Plan: Patient is an 79-year-old male with history of hypertension and hyperlipidemia. Patient presented to the ER with complaint of fatigue and worsening shortness of breath over the last several weeks. Patient complains of having had episode of chest pressure and worsening shortness of breath while attempting to mow his lawn. Symptoms improved with rest. Patient denies previous episodes of similar. In the ER, patient was noted to have a murmur consistent with aortic stenosis. Echocardiogram confirms severe aortic valve stenosis. Patient appears pale. Hemoglobin 7.0 g/dL noted on admission. Patient denies bright red blood per rectum or dark tarry stools. Patient admitted to [facility] for further evaluation and treatment. - transfuse 2 units PRBCs - consult Cardiology - consider TAVR - Consult Gastroenterology. Pt will need EGD/Colonoscopy - Repeat CBC in AM (2) Heart murmur Code(s): R01.1 - Cardiac murmur, unspecified Status: Acute (3) Severe aortic valve stenosis Code(s): I35.0 - Nonrheumatic aortic (valve) stenosis Status: Acute (4) Anemia Code(s): D64.9 - Anemia, unspecified Status: Acute
[2018-08-16] MEDS ORDERED: LORazepam 1 MG Tablet PO PRN (18:08)
[2018-08-16] MEDS ORDERED: Haloperidol Inj 5 MG/ML Ampul IV.PUSH PRN (18:08)
[2018-08-16 20:12] LABS: Troponin I 0.02 ng/mL (0.02-0.05)
[2018-08-16] MEDS: Senna/Docusate Sodium 8.6/50 MG Tablet PO SCH (20:31)
[2018-08-17 01:26] LABS: Troponin I 0.04 ng/mL (0.02-0.05)
[2018-08-17 07:35] LABS: Alanine Aminotransferase 18 U/L (12-78); Albumin 2.7 g/dL (3.4-5.0); Anion Gap 8 meq/L (5-15); Aspartate Aminotransferase 11 U/L (15-37); Blood Urea Nitrogen 16 mg/dL (7-18); Calcium 7.9 mg/dL (8.5-10.1); Chloride 110 meq/L (98-107); Glomerular Filtration Rate 73 mL/min (>89); Glucose,Random 98 mg/dL (74-106); Sodium 144 meq/L (136-145)
[2018-08-17 07:37] LABS: Alkaline Phosphatase 65 U/L (45-117); Total Protein 5.8 g/dL (6.4-8.2)
[2018-08-17] MEDS: Senna/Docusate Sodium 8.6/50 MG Tablet PO SCH ×2 (08:28→20:29)
[2018-08-17] MEDS: Polyethylene Glycol 3350 17 GM Packet PO SCH (08:28)
--- NOTE | 2018-08-17 08:50 | P.PNCA ---
Subjective Interval history: Reports some left-sided chest pain when taking a deep breath. Reports breathing is overall improved after transfusions yesterday. Does complain of a little orthopnea overnight. Medications and Allergies Allergies Allergy/AdvReac Type Severity Reaction Status Date / Time No Known Allergies Allergy Verified 08/16/18 10:31 Home Medications Medication Instructions Recorded Confirmed Type amlodipine 10 mg PO DAILY 08/16/18 08/16/18 History aspirin 81 mg PO DAILY 08/16/18 08/16/18 History hydrochlorothiazide 12.5 mg PO DAILY 08/16/18 08/16/18 History lisinopril 20 mg PO DAILY 08/16/18 08/16/18 History simvastatin 20 mg PO QPM 08/16/18 08/16/18 History Active Medications: Active Medications Acetaminophen (Tylenol) 650 mg PO Q4H PRN PRN Reason: Temp > 100.4 Last Admin: 08/17/18 08:27 Dose: 650 mg Al Hydroxide/Mg Hydroxide (Milk Of Flexiroamchau Liq) 30 ml PO Q12H PRN PRN Reason: Mild Constipation Flumazenil (Romazecon Inj) 0.2 mg IV.PUSH Q1M PRN PRN Reason: OVERSEDATION Haloperidol Lactate (Haldol Inj) 1 mg IV.PUSH Q15M PRN PRN Reason: for severe agitation Lorazepam (Ativan) 2 mg PO Q2H PRN PRN Reason: for CIWA 11-14 Lorazepam (Ativan Inj) 2 mg IV.PUSH Q2H PRN PRN Reason: for CIWA 11-14 Lorazepam (Ativan Inj) 2 mg IV.PUSH Q1H PRN PRN Reason: for CIWA 15-20 Lorazepam (Ativan Inj) 2 mg IV.PUSH Q15M PRN PRN Reason: for CIWA > 20 Lorazepam (Ativan) 1 mg PO Q4H PRN PRN Reason: for CIWA 8-10 Lorazepam (Ativan Inj) 1 mg IV.PUSH Q4H PRN PRN Reason: for CIWA 8-10 Ondansetron HCl (Zofran Inj) 4 mg IV.PUSH Q6H PRN PRN Reason: NAUSEA OR VOMITING Polyethylene Glycol (Miralax) 17 gm PO DAILY ANTONIA Last Admin: 08/17/18 08:28 Dose: 17 gm Senna/Docusate Sodium (Debra-Colace) 1 tab PO BID ANTONIA Last Admin: 08/17/18 08:28 Dose: 1 tab Sodium Chloride (Ns Flush) 2 ml IV.FLUSH UNSCH PRN PRN Reason: FLUSH AFTER USING IV ACCESS Last Admin: 08/16/18 20:32 Dose: 2 ml Physical Exam Vital signs: Vital Signs 08/16/18 10:18 08/16/18 10:31 08/16/18 10:51 Temperature 98.5 F Pulse Rate 80 63 63 Respiratory Rate 20 20 16 Blood Pressure 137/77 130/58 L 130/58 L Pulse Oximetry 99 97 97 08/16/18 13:29 08/16/18 16:15 08/16/18 17:33 Temperature 96 F L 96 F L Pulse Rate 54 L 58 L 58 L Respiratory Rate 19 18 18 Blood Pressure 124/57 L 140/70 140/70 Pulse Oximetry 96 95 95 08/16/18 20:00 08/16/18 21:05 08/16/18 21:24 Temperature 97.4 F L 97.8 F 97.8 F Pulse Rate 60 60 58 L Respiratory Rate 14 16 16 Blood Pressure 134/58 L 122/59 L 120/60 Pulse Oximetry 93 L 94 L 94 L 08/16/18 21:40 08/16/18 23:43 08/16/18 23:45 Temperature 97.4 F L Pulse Rate 61 60 60 Respiratory Rate 14 Blood Pressure 134/58 L Pulse Oximetry 93 L 08/17/18 00:00 08/17/18 04:00 Temperature 97.4 F L 98.4 F Pulse Rate 60 61 Respiratory Rate 14 20 Blood Pressure 134/58 L 135/61 Pulse Oximetry 93 L 93 L Intake & Output 08/16/18 08/17/18 08/17/18 18:59 06:59 18:59 Intake Total 0 / 0 1150 / 1150 Output Total 2 / 2 Balance 0 / 0 1148 / 1148 Weight 188 lb 181 lb 3.52 oz Intake: IV 150 / 150 NS Inj 250 ML @ 15 mls/hr IV. 150 / 150 SIG ONCE [facility] Rx#:[id number] Oral 100 / 100 Other 100 / 100 Rbc As-3 Leukoreduced Unit 50 / 50 [id number] Rbc As-3 Leukoreduced Unit 50 / 50 [id number] Intake (Blood Product) Amt 0 / 0 800 / 800 Rbc As-3 Leukoreduced Unit 400 / 400 [id number] Rbc As-3 Leukoreduced Unit 0 / 0 400 / 400 [id number] Output: Urine 2 / 2 Other: Weight On Admission 182 lb 12.211 oz Narrative: GENERAL: Well-developed well-nourished. In no acute distress. NECK: No carotid bruits. No JVD. CARDIOVASCULAR: Regular rate and rhythm. 3/6 LUDMILA appreciated. RESPIRATORY: No accessory muscle use. Clear to auscultation. Breath sounds equal bilaterally. MUSCULOSKELETAL: No clubbing or cyanosis. No edema. NEUROLOGICAL: Awake and alert. Normal speech. Results 08/16/18 10:45 08/17/18 04:25 Cardiac Enzymes 08/16/18 08/16/18 08/17/18 Range/Units 10:45 19:08 00:44 AST 7 L (15-37) U/L Troponin I 0.02 0.02 0.04 (0.02-0.05) ng/mL 08/17/18 Range/Units 04:25 AST 11 L (15-37) U/L Troponin I (0.02-0.05) ng/mL CBC 08/16/18 Range/Units 10:45 WBC 9.6 (4.0-11.0) th/mm3 RBC 2.60 L (4.50-5.90) mil/mm3 Hgb 7.0 L (13.0-17.0) gm/dL Hct 21.2 L (39.0-51.0) % Plt Count 374 (150-450) th/mm3 Neut # (Auto) 6.5 (1.8-7.7) th/mm3 Lymph # (Auto) 2.1 (1.0-4.8) th/mm3 [place] # (Auto) 0.8 (0.0-0.9) th/mm3 Eos # (Auto) 0.3 (0.0-0.4) th/mm3 Baso # (Auto) 0.1 (0.0-0.2) th/mm3 Comprehensive Metabolic Panel 08/16/18 08/17/18 Range/Units 10:45 04:25 Sodium 140 144 (136-145) meq/L Potassium 3.8 4.0 (3.5-5.1) meq/L Chloride 108 H 110 H (98-107) meq/L Carbon Dioxide 23.5 26.0 (21.0-32.0) meq/L BUN 12 16 (7-18) mg/dL Creatinine 0.98 0.97 (0.60-1.30) mg/dL Calcium 7.9 L 7.9 L (8.5-10.1) mg/dL AST 7 L 11 L (15-37) U/L ALT 20 18 (12-78) U/L Alkaline Phosphatase 68 65 (45-117) U/L Total Protein 6.3 L 5.8 L (6.4-8.2) g/dL Albumin 2.8 L 2.7 L (3.4-5.0) g/dL Intake and Output 08/16/18 08/17/18 08/17/18 22:59 06:59 14:59 Intake Total 450 / 450 700 / 700 Output Total 2 / 2 Balance 450 / 450 698 / 698 Intake: IV 150 / 150 NS Inj 250 ML @ 15 mls/hr IV. 150 / 150 SIG ONCE [facility] Rx#:[id number] Oral 100 / 100 Other 50 / 50 50 / 50 Rbc As-3 Leukoreduced Unit 50 / 50 [id number] Rbc As-3 Leukoreduced Unit 50 / 50 [id number] Intake (Blood Product) Amt 400 / 400 400 / 400 Rbc As-3 Leukoreduced Unit 0 / 0 400 / 400 [id number] Rbc As-3 Leukoreduced Unit 400 / 400 [id number] Output: Urine 2 / 2 Other: Weight 181 lb 3.52 oz Weight On Admission 182 lb 12.211 oz - Imaging and Cardiology Imaging: Impressions Chest X-Ray 08/16/18 10:44 CONCLUSION: 1. Trace right pleural effusion. 2. Minimal bibasilar airspace disease, presumably atelectasis. Assessment and Plan - Assessment (1) Severe aortic valve stenosis Code(s): I35.0 - Nonrheumatic aortic (valve) stenosis Status: Acute Plan: Transthoracic echocardiogram revealed severely aortic valve stenosis with mean gradient greater than 40 mmHg and aortic valve area less than 1.0 cm. Patient reports symptoms of fatigue, shortness of breath, and chest pain in the setting of severe anemia which is likely exacerbating the demand mediated symptoms. At this point the patient needs to have gastrointestinal workup which likely includes EGD and colonoscopy, okay to proceed with moderate or deep sedation for GI workup from cardiology perspective. Avoid aggressive hydration. Some orthopnea after transfusions, will give IV Lasix 20 mg x1. Patient is going to need workup for the aortic valve which includes left and right cardiac catheterization, especially given symptoms. We may be able to pursue this on an outpatient basis once the whole GI workup and treatment is completed. As outpatient, we will then have to consider whether the patient is a candidate for aortic valve replacement, either via surgical or trans-catheter percutaneous approach. (2) Anemia Code(s): D64.9 - Anemia, unspecified Status: Acute (3) Gastrointestinal bleeding Code(s): K92.2 - Gastrointestinal hemorrhage, unspecified Status: Acute - Plan Discussed Condition With: Patient, Dr. Calzada - Attending Attestation agree with above await GI workup plan for outpatient office visit after discharge and then we will coordinate cardiac cath and TAVR evaluation
--- NOTE | 2018-08-17 09:02 | XR ---
EXAM DATE: 08/17/2018 8:00 AM EDT AGE/SEX: 87 years / Male INDICATIONS: . Short of breath. CLINICAL DATA: This is the patient's subsequent encounter. Patient reports that signs and symptoms h ave been present for 3 days and indicates a pain score of 0/10. MEDICAL/SURGICAL HISTORY: . Hypercholesterolemia. Hypertension. Cholecystectomy. . COMPARISON: [facility] [place], CHEST 2V PA&LAT, 08/16/2018. . FINDINGS: Mild bibasilar infiltrates persist. Slight blunting of the costophrenic angles indicating small effus ion. Cardiac contours are unchanged. CONCLUSION: Persistent mild bibasilar infiltrates Electronically signed by: Sage Martinez MD 08/17/2018 9:01 AM EDT
--- NOTE | 2018-08-17 16:39 | P.PNGI ---
Subjective Interval history: Patient sitting up in chair at bedside. No obvious bleeding noted. Patient denies any nausea vomiting or abdominal pain. Cardiac clearance noted ,plan for EGD and colonoscopy tomorrow <Chuyita Chew - Last Filed: 08/17/18 16:34> Physical Exam Vital signs: Vital Signs 08/16/18 17:33 08/16/18 20:00 08/16/18 21:05 Temperature 96 F L 97.4 F L 97.8 F Pulse Rate 58 L 60 60 Respiratory Rate 18 14 16 Blood Pressure 140/70 134/58 L 122/59 L Pulse Oximetry 95 93 L 94 L 08/16/18 21:24 08/16/18 21:40 08/16/18 23:43 Temperature 97.8 F 97.4 F L Pulse Rate 58 L 61 60 Respiratory Rate 16 14 Blood Pressure 120/60 134/58 L Pulse Oximetry 94 L 93 L 08/16/18 23:45 08/17/18 00:00 08/17/18 04:00 Temperature 97.4 F L 98.4 F Pulse Rate 60 60 61 Respiratory Rate 14 20 Blood Pressure 134/58 L 135/61 Pulse Oximetry 93 L 93 L 08/17/18 07:43 08/17/18 08:00 08/17/18 12:00 Temperature 98.3 F 97.9 F Pulse Rate 63 67 63 Respiratory Rate 20 20 Blood Pressure 141/65 H 147/67 H Pulse Oximetry 92 L 95 Intake & Output 08/16/18 08/17/18 08/17/18 18:59 06:59 18:59 Intake Total 0 / 0 1150 / 1150 Output Total 2 / 2 550 / 550 Balance 0 / 0 1148 / 1148 -550 / -550 Weight 85.275 kg 82.2 kg Intake: IV 150 / 150 NS Inj 250 ML @ 15 mls/hr IV. 150 / 150 SIG ONCE [facility] Rx#:[id number] Oral 100 / 100 Other 100 / 100 Rbc As-3 Leukoreduced Unit 50 / 50 [id number] Rbc As-3 Leukoreduced Unit 50 / 50 [id number] Intake (Blood Product) Amt 0 / 0 800 / 800 Rbc As-3 Leukoreduced Unit 400 / 400 [id number] Rbc As-3 Leukoreduced Unit 0 / 0 400 / 400 [id number] Output: Urine / 2 550 / 550 Other: Weight On Admission 82.9 kg - Constitutional no acute distress - Routine HEENT Exam Head: Present: normocephalic - Routine Respiratory Exam Present: CTA bilaterally. Absent: accessory muscle use - Routine Abdominal Exam Present: soft, normoactive bowel sounds. Absent: tenderness, distended, guarding, firm - Routine Extremities Exam Present: full ROM - Routine Skin Exam Present: dry, warm - Routine Neurological Exam Present: alert, oriented X3 - Routine Psychiatric Exam Present: normal affect, cooperative <Chew,Chuyita - Last Filed: 08/17/18 16:34> Vital signs: Vital Signs 08/16/18 21:05 08/16/18 21:24 08/16/18 21:40 Temperature 97.8 F 97.8 F Pulse Rate 60 58 L 61 Respiratory Rate 16 16 Blood Pressure 122/59 L 120/60 Pulse Oximetry 94 L 94 L 08/16/18 23:43 08/16/18 23:45 08/17/18 00:00 Temperature 97.4 F L 97.4 F L Pulse Rate 60 60 60 Respiratory Rate 14 14 Blood Pressure 134/58 L 134/58 L Pulse Oximetry 93 L 93 L 08/17/18 04:00 08/17/18 07:43 08/17/18 08:00 Temperature 98.4 F 98.3 F Pulse Rate 61 63 67 Respiratory Rate 20 20 Blood Pressure 135/61 141/65 H Pulse Oximetry 93 L 92 L 08/17/18 12:00 08/17/18 16:00 08/17/18 16:44 Temperature 97.9 F 98.0 F Pulse Rate 63 67 65 Respiratory Rate 20 16 Blood Pressure 147/67 H 151/65 H Pulse Oximetry 95 95 Intake & Output 08/17/18 08/17/18 08/18/18 06:59 18:59 06:59 Intake Total 1150 / 1150 670 / 670 Output Total 2 / 2 550 / 550 Balance 1148 / 1148 120 / 120 Weight 82.2 kg Intake: IV 150 / 150 NS Inj 250 ML @ 15 mls/hr IV. 150 / 150 SIG ONCE [facility] Rx#:[id number] Oral 100 / 100 670 / 670 Other 100 / 100 Rbc As-3 Leukoreduced Unit 50 / 50 [id number] Rbc As-3 Leukoreduced Unit 50 / 50 [id number] Intake (Blood Product) Amt 800 / 800 Rbc As-3 Leukoreduced Unit 400 / 400 [id number] Rbc As-3 Leukoreduced Unit 400 / 400 [id number] Output: Urine / 550 / 550 Other: # Voids 4 # Bowel Movements 0 <Magen Diaz - Last Filed: 08/17/18 20:16> Results - Labs CBC & Chem 7: 08/16/18 10:45 08/17/18 04:25 Laboratory Results - last 24 hr 08/16/18 08/16/18 08/17/18 13:30 19:08 00:44 Sodium Potassium Chloride Carbon Dioxide Anion Gap BUN Creatinine Estimated GFR Random Glucose Calcium Total Bilirubin AST ALT Alkaline Phosphatase Total Creatine Kinase 89 93 Troponin I 0.02 0.04 Total Protein Albumin Blood Type AB Positive Antibody Screen Negative MTS Gel Crossmatch See Detail Bld Prod Order Comment 08/17/18 04:25 Sodium 144 Potassium 4.0 Chloride 110 H Carbon Dioxide 26.0 Anion Gap 8 BUN 16 Creatinine 0.97 Estimated GFR 73 L Random Glucose 98 Calcium 7.9 L Total Bilirubin 0.8 AST 11 L ALT 18 Alkaline Phosphatase 65 Total Creatine Kinase Troponin I Total Protein 5.8 L Albumin 2.7 L Blood Type Antibody Screen MTS Gel Crossmatch Bld Prod Order Comment - Imaging Impressions Chest X-Ray 08/17/18 08:00 CONCLUSION: Persistent mild bibasilar infiltrates <Chuyita Chew - Last Filed: 08/17/18 16:34> - Labs CBC & Chem 7: 08/16/18 10:45 08/17/18 04:25 Laboratory Results - last 24 hr 08/16/18 08/16/18 08/17/18 13:30 19:08 00:44 Sodium Potassium Chloride Carbon Dioxide Anion Gap BUN Creatinine Estimated GFR Random Glucose Calcium Total Bilirubin AST ALT Alkaline Phosphatase Total Creatine Kinase 89 93 Troponin I 0.02 0.04 Total Protein Albumin Blood Type AB Positive Antibody Screen Negative MTS Gel Crossmatch See Detail Bld Prod Order Comment 08/17/18 04:25 Sodium 144 Potassium 4.0 Chloride 110 H Carbon Dioxide 26.0 Anion Gap 8 BUN 16 Creatinine 0.97 Estimated GFR 73 L Random Glucose 98 Calcium 7.9 L Total Bilirubin 0.8 AST 11 L ALT 18 Alkaline Phosphatase 65 Total Creatine Kinase Troponin I Total Protein 5.8 L Albumin 2.7 L Blood Type Antibody Screen MTS Gel Crossmatch Bld Prod Order Comment Microbiology 08/17/18 17:15 Stool Stool Occult Blood (MIGUEL) - Final Hemoccult negative - Imaging Impressions Chest X-Ray 08/17/18 08:00 CONCLUSION: Persistent mild bibasilar infiltrates <Magen Diaz - Last Filed: 08/17/18 20:16> Assessment and Plan (1) Anemia Status: Acute Code(s): D64.9 - Anemia, unspecified (2) Gastrointestinal bleeding Status: Acute Code(s): K92.2 - Gastrointestinal hemorrhage, unspecified - Plan 08/17/2018 Anemia /GI bleed (08/16) hemoglobin 7.0 hematocrit 21.2 Patient denies any active bleeding no BM today Cardiac clearance noted, EGD colonoscopy tomorrow Plan -Clear liquid diet for dinner -N.p.o. after midnight -Obtain consent for EGD colonoscopy -GoLYTELY prep -Monitor for any bleeding -Transfuse as needed -Antiemetics as needed -Supportive care -Further recommendations to follow based on patient's status and findings This patient has been seen by myself and Dr. Diaz and this note is written on his behalf - Attending Attestation Dr. Diaz <Chuyita Chew - Last Filed: 08/17/18 16:34> (1) Anemia Status: Acute Code(s): D64.9 - Anemia, unspecified (2) Gastrointestinal bleeding Status: Acute Code(s): K92.2 - Gastrointestinal hemorrhage, unspecified - Plan Patient seen and examined Agree with above history and physical Continue with current supportive care Monitor labs We will proceed with an EGD and a colonoscopy tomorrow <Magen Diaz - Last Filed: 08/17/18 20:16>
[2018-08-17] MEDS ORDERED: PEG 3350/E-Lyte Soln 4000 ML Bottle PO ONE (18:00)
--- NOTE | 2018-08-17 18:21 | P.PNIM ---
Subjective Interval history: some improvement in pt's SOB and fatigue since transfusion. Physical Exam Vital signs: 08/17/18 16:44 Temperature 98.0 F Pulse Rate 65 Respiratory Rate 16 Blood Pressure 151/65 H Pulse Oximetry 95 Narrative: GENERAL: This is a well-nourished, well-developed patient, in no apparent distress. CARDIOVASCULAR: regular, harsh LUDMILA with radiation to right chest RESPIRATORY: Clear to auscultation. Breath sounds equal bilaterally. No wheezes , rales, or rhonchi. GASTROINTESTINAL: Abdomen soft, non-tender, nondistended. Normal active bowel sounds MUSCULOSKELETAL: Extremities without clubbing, cyanosis, or edema. NEURO: Alert & Oriented x4 to person, place, time, situation. Moves all ext x4 Results - Labs CBC & Chem 7: 08/18/18 09:00 08/18/18 09:00 Laboratory Results - last 24 hr 08/16/18 08/16/18 08/17/18 13:30 19:08 00:44 Sodium Potassium Chloride Carbon Dioxide Anion Gap BUN Creatinine Estimated GFR Random Glucose Calcium Total Bilirubin AST ALT Alkaline Phosphatase Total Creatine Kinase 89 93 Troponin I 0.02 0.04 Total Protein Albumin Blood Type AB Positive Antibody Screen Negative MTS Gel Crossmatch See Detail Bld Prod Order Comment - Imaging Chest X-Ray 08/17/18 08:00 Persistent mild bibasilar infiltrates Assessment and Plan - Assessment (1) LONG (dyspnea on exertion) Code(s): R06.09 - Other forms of dyspnea Status: Acute Plan: Patient is an 79-year-old male with history of hypertension and hyperlipidemia. Patient presented to the ER with complaint of fatigue and worsening shortness of breath over the last several weeks. Patient complains of having had episode of chest pressure and worsening shortness of breath while attempting to mow his lawn. Symptoms improved with rest. Patient denies previous episodes of similar. In the ER, patient was noted to have a murmur consistent with aortic stenosis. Echocardiogram confirms severe aortic valve stenosis. Patient appears pale. Hemoglobin 7.0 g/dL noted on admission. Patient denies bright red blood per rectum or dark tarry stools. Patient admitted to [facility] for further evaluation and treatment. - transfuse 2 units PRBCs - consult Cardiology - consider TAVR - Consult Gastroenterology. Pt will need EGD/Colonoscopy - Repeat CBC in AM Anemia - comgmt with GI - Hg 7.0 - Pt transfused 2 units PRBCs (08/16/18) - EGD/Colonoscopy (08/18/18) (2) Anemia Code(s): D64.9 - Anemia, unspecified Status: Acute (3) Gastrointestinal bleeding Code(s): K92.2 - Gastrointestinal hemorrhage, unspecified Status: Acute (4) Heart murmur Code(s): R01.1 - Cardiac murmur, unspecified Status: Acute (5) Severe aortic valve stenosis Code(s): I35.0 - Nonrheumatic aortic (valve) stenosis Status: Acute
--- NOTE | 2018-08-17 19:26 | ECG ---
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 PREVIOUS TRACING : 08/16/2018 22.34 DOCTOR: Shaun Hodge Interpretating Date/Time 08/17/2018 19:24:35
[2018-08-18] MEDS: Senna/Docusate Sodium 8.6/50 MG Tablet PO SCH ×2 (09:00→20:12)
[2018-08-18] MEDS: Polyethylene Glycol 3350 17 GM Packet PO SCH (09:00)
[2018-08-18 09:38] LABS: Baso # (Auto) 0.1 th/mm3 (0.0-0.2); Baso % (Auto) 0.7 % (0.0-2.0); Eos # (Auto) 0.4 th/mm3 (0.0-0.4); Eos % (Auto) 4.9 % (0.0-4.0); Hemoglobin 9.6 gm/dL (13.0-17.0); Lymph # (Auto) 1.7 th/mm3 (1.0-4.8); Lymph % (Auto) 20.8 % (9.0-44.0); Mean Corpuscular Hemoglobin 27.4 pg (27.0-34.0); Mean Corpuscular Volume 83.1 fL (80.0-100.0); Mono # (Auto) 0.5 th/mm3 (0.0-0.9); Mono % (Auto) 6.6 % (0.0-8.0); Neut # (Auto) 5.5 th/mm3 (1.8-7.7); Platelet Count 384 th/mm3 (150-450); Red Blood Count 3.49 mil/mm3 (4.50-5.90); Red Cell Distribution Width 16.6 % (11.6-17.2); White Blood Count 8.1 th/mm3 (4.0-11.0)
[2018-08-18] MEDS ORDERED: Chlorhexidine Gluconate 2% 1 Pack (2 Cloths) TOPICAL SCH (09:54)
[2018-08-18] MEDS ORDERED: Metoprolol Tartrate 25 MG Tablet PO SCH (09:54)
[2018-08-18] MEDS ORDERED: Sodium Chlor 0.9% Inj 500 ML IV.SIG SCH (10:00)
[2018-08-18 10:02] LABS: Anion Gap 8 meq/L (5-15); Blood Urea Nitrogen 12 mg/dL (7-18); Calcium 8.2 mg/dL (8.5-10.1); Carbon Dioxide 26.4 meq/L (21.0-32.0); Chloride 108 meq/L (98-107); Glomerular Filtration Rate Greater Than 89 mL/min (>89); Glucose,Random 116 mg/dL (74-106); Magnesium 2.4 mg/dL (1.5-2.5); Potassium 3.6 meq/L (3.5-5.1); Sodium 142 meq/L (136-145)
[2018-08-18] MEDS ORDERED: Phenylephrine/NS 1000 MCG/10ML Syringe IV.PUSH ONE (12:01)
[2018-08-18] MEDS ORDERED: Lidocaine PF 1% Inj 5 ML Syringe OTHER ONE (12:01)
[2018-08-18] MEDS ORDERED: Ketamine Inj 50 MG/5 ML Syringe IV.PUSH ONE (12:08)
--- NOTE | 2018-08-18 13:02 | P.PCN ---
Date of procedure: 08/18/18 Pre-op diagnosis: Anemia, melena, rectal bleeding, constipation Procedure: PROCEDURE PERFORMED EGD followed by a colonoscopy with snare polypectomy and biopsy PROCEDURE: The procedure, risks and benefits were discussed with Patient/POA and informed consent was obtained. Anesthesia sedated Patient with Diprivan. Patient was placed in the left lateral decubitus position. EGD: The Pentax videoscope was introduced through the oropharynx and advanced to the second portion of the duodenum under direct visualization. Retroflexion was performed in the stomach. FINDINGS: The esophagus this was normal The stomach this was normal The duodenum this was normal Colonoscopy: The Pentax videoscope was introduced through the rectum and advanced to cecum where the ileocecal valve and appendiceal orifice were identified. Retroflexion was performed in the rectum. Colonic prep was fair FINDINGS: Colonic withdrawal time greater than 6 minutes. As the scope was slowly withdrawn colonic mucosa was carefully inspected the patient was noted to have a large sessile polypoid lesion/mass in the cecum possibly a malignancy this was biopsied and a would be difficult to remove endoscopically also noted a small superficial ulceration in the cecum this too was biopsied for further evaluation the patient was also noted to have 3 polyps one in the proximal transverse the next was in the sigmoid and the last was in the rectum all medium -sized benign-appearing all removed using cold snare technique the patient was also noted to have severe diverticulosis of the sigmoid region the colonoscopy otherwise unremarkable so is retroflexion and rectal examination ESTIMATED BLOOD LOSS: Minimal SPECIMENS REMOVED: Colon biopsies COMPLICATIONS: None IMPRESSION: Normal EGD Cecal ulcer Cecal mass Colon polyps Diverticulosis PLAN: Await biopsies Check CEA Obtain CT of the abdomen Colonoscopy in 1 year Anesthesia: MAC Surgeon: Magen Diaz Condition: stable Disposition: floor
[2018-08-18] MEDS ORDERED: Diatrizoate Meglum/Diatrizoate Sod Liq 9 ML UDC PO ONE (13:20)
--- NOTE | 2018-08-18 16:34 | P.PNIM ---
Subjective Interval history: No new complaints. Physical Exam Vital signs: Vital Signs 08/17/18 16:44 08/17/18 20:00 08/17/18 20:31 Temperature 98.0 F 97.5 F L Pulse Rate 65 76 72 Respiratory Rate 16 16 Blood Pressure 151/65 H 186/81 H Pulse Oximetry 95 96 08/18/18 00:00 08/18/18 04:00 08/18/18 08:00 Temperature 97.5 F L 97.4 F L 97.5 F L Pulse Rate 65 74 60 Respiratory Rate 16 16 20 Blood Pressure 158/76 H 130/60 144/65 H Pulse Oximetry 94 L 97 92 L 08/18/18 13:02 08/18/18 13:30 08/18/18 16:00 Temperature 97.2 F L 97.3 F L 97.7 F Pulse Rate 65 61 73 Respiratory Rate 18 20 18 Blood Pressure 125/57 L 180/77 H 184/80 H Pulse Oximetry 92 L 94 L 96 Intake & Output 08/17/18 08/18/18 08/18/18 18:59 06:59 18:59 Intake Total 670 / 670 0 / 0 Output Total 550 / 550 Balance 120 / 120 0 / 0 Weight 82.1 kg Intake: Oral 670 / 670 0 / 0 Output: Urine 550 / 550 Other: # Voids 4 7 Date of Last Bowel Movement 08/17/18 # Bowel Movements 0 6 Results - Labs CBC & Chem 7: 08/18/18 09:00 08/18/18 09:00 Laboratory Results - last 24 hr 08/18/18 08/18/18 09:00 09:00 WBC 8.1 RBC 3.49 L Hgb 9.6 L D Hct 29.0 L MCV 83.1 MCH 27.4 MCHC 33.0 RDW 16.6 Plt Count 384 MPV 7.0 Neut % (Auto) 67.0 Lymph % (Auto) 20.8 [place] % (Auto) 6.6 Eos % (Auto) 4.9 H Baso % (Auto) 0.7 Neut # (Auto) 5.5 Lymph # (Auto) 1.7 [place] # (Auto) 0.5 Eos # (Auto) 0.4 Baso # (Auto) 0.1 WBC Differential . Differential Comment Auto diff final Sodium 142 Potassium 3.6 Chloride 108 H Carbon Dioxide 26.4 Anion Gap 8 BUN 12 Creatinine 0.81 Estimated GFR Greater than 89 Random Glucose 116 H Calcium 8.2 L Magnesium 2.4 Microbiology 08/17/18 17:15 Stool Stool Occult Blood (MIGUEL) - Final Hemoccult negative Assessment and Plan - Assessment (1) LONG (dyspnea on exertion) Code(s): R06.09 - Other forms of dyspnea Status: Acute Plan: Patient is an 79-year-old male with history of hypertension and hyperlipidemia. Patient presented to the ER with complaint of fatigue and worsening shortness of breath over the last several weeks. Patient complains of having had episode of chest pressure and worsening shortness of breath while attempting to mow his lawn. Symptoms improved with rest. Patient denies previous episodes of similar. In the ER, patient was noted to have a murmur consistent with aortic stenosis. Echocardiogram confirms severe aortic valve stenosis. Patient appears pale. Hemoglobin 7.0 g/dL noted on admission. Patient denies bright red blood per rectum or dark tarry stools. Patient admitted to [facility] for further evaluation and treatment. - transfused 2 units PRBCs - appreciate input from Cardiology - consider TAVR Anemia - comgmt with GI - Hg 7.0 (08/16), 9.6 (08/18) - Pt transfused 2 units PRBCs (08/16/18) - EGD (08/18/18) --> normal EGD - Colonoscopy (08/18/18) performed by Dr. Magen Diaz - Cecal ulcer - Cecal mass - Colon polyps - Diverticulosis - await biopsy results - obtain CT A/P - obtain CEA - obtain repeat CBC, BMP, Mag in AM (2) Anemia Code(s): D64.9 - Anemia, unspecified Status: Acute (3) Gastrointestinal bleeding Code(s): K92.2 - Gastrointestinal hemorrhage, unspecified Status: Acute (4) Heart murmur Code(s): R01.1 - Cardiac murmur, unspecified Status: Acute (5) Severe aortic valve stenosis Code(s): I35.0 - Nonrheumatic aortic (valve) stenosis Status: Acute
--- NOTE | 2018-08-18 18:04 | CT ---
EXAM DATE: 08/18/2018 4:54 PM EDT AGE/SEX: 87 years / Male INDICATIONS: Evaluate cecal mass found on colonoscopy. CLINICAL DATA: This is the patient's initial encounter. Patient reports that signs and symptoms have been present for 1 day and indicates a pain score of 0/10. MEDICAL/SURGICAL HISTORY: Anemia. Hypertension. Cholecystectomy. ORAL CONTRAST: Prescribed oral contrast ingested. RADIATION DOSE: 15.63 CTDI (mGy) COMPARISON: [facility], CT ABDOMEN & PELVIS W CONTRAST, 03/06/2013. . TECHNIQUE: Multiple contiguous axial images were obtained through the abdomen and pelvis following b olus infusion of 95 ml Omnipaque 350 (iohexol) nonionic water-soluble contrast as a single exam dos e. Prescribed oral contrast ingested. Using automated exposure control and adjustment of the mA and/ or kV according to patient size, radiation dose was kept as low as reasonably achievable to obtain op timal diagnostic quality images. DICOM format image data is available electronically for review and comparison. FINDINGS: Lower Lungs: Small bilateral pleural effusions. Lung bases are otherwise clear. Atherosclerotic calci fication of the coronary arteries Liver: Hypodense lesions identified in the liver, both in the right hepatic lobe. The more cephalad p osterior lesion measures 1.8 cm in diameter and was present previously. Some peripheral enhancement s uggesting a hemangioma. Second lesion is in the inferior aspect of the right hepatic lobe measuring 2 .2 cm in diameter. Again, there is some peripheral enhancement characteristic of a hemangioma. This t oo was present previously. Patient is status post cholecystectomy. Spleen: Homogeneous density without enlargement. Pancreas: Unremarkable without mass or calcification. Kidneys: Normal in size and shape. No evidence of mass or hydronephrosis. Adrenal Glands: Unremarkable. Aorta: The aorta and proximal iliac vessels are grossly unremarkable without aneurysmal dilation. Bowel/Mesentery: As stated in the clinical history, there is a cecal mass measuring 5.4 x 4.2 x 4.7 cm. This is just inferior to the ileocecal valve. The appendix is present, is retrocecal with the tip near the inferior edge of the liver. Mild diverticular disease of the sigmoid without diverticulitis Abdominal Wall: Intact. Retroperitoneum: No evidence of adenopathy in the retrocrural, para-aortic, or deep pelvic regions. Bladder: Contours are smooth. Reproductive Organs: No abnormal masses or calcifications seen. Inguinal: The inguinal region is unremarkable without evidence of adenopathy. Bony Structures: Unremarkable. Post Contrast: No abnormal areas of enhancement seen. CONCLUSION: 1. 5.4 cm cecal mass lesion. No findings of regional adenopathy or hepatic metastasis. 2. There are 2 hypodense areas in the liver which were present back in 2012. These are both slightly larger but have imaging characteristics suggesting hemangioma. Multiphasic MR of the abdomen could b e performed for further characterization if clinically warranted. 3. Patient is status post cholecystectomy. 4. 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
--- NOTE | 2018-08-19 01:35 | ECG ---
Date Performed: 08/16/2018 Time Performed: 22:34:48 PTAGE: 87 years EKG: SINUS BRADYCARDIA WITH FIRST DEGREE AV BLOCK SEPTAL MYOCARDIAL INFARCTION , PROBABLY OLD AB NORMAL ECG PREVIOUS TRACING : 08/16/2018 19.34 Since the previous tracing, no significant change noted DOCTOR: Krzysztof Sevilla Interpretating Date/Time 08/19/2018 01:34:02
--- NOTE | 2018-08-19 01:46 | ECG ---
Date Performed: 08/16/2018 Time Performed: 19:34:34 PTAGE: 87 years EKG: SINUS BRADYCARDIA WITH SINUS ARRHYTHMIA EARLY R WAVE TRANSITION PREVIOUS TRACING : 08/16/2018 10.30 Since the previous tracing, no significant change not ed DOCTOR: Krzysztof Sevilla Interpretating Date/Time 08/19/2018 01:46:12
[2018-08-19] MEDS: Senna/Docusate Sodium 8.6/50 MG Tablet PO SCH ×2 (10:02→20:44)
[2018-08-19] MEDS: Polyethylene Glycol 3350 17 GM Packet PO SCH (10:02)
--- NOTE | 2018-08-19 12:07 | P.PNIM ---
Subjective Interval history: No new complaints. Physical Exam Vital signs: 08/19/18 11:31 Temperature 97.8 F Pulse Rate 60 Respiratory Rate 16 Blood Pressure 144/65 H Pulse Oximetry Narrative: GENERAL: This is a well-nourished, well-developed patient, in no apparent distress. CARDIOVASCULAR: regular, harsh LUDMILA with radiation to right chest RESPIRATORY: Clear to auscultation. Breath sounds equal bilaterally. No wheezes , rales, or rhonchi. GASTROINTESTINAL: Abdomen soft, non-tender, nondistended. Normal active bowel sounds MUSCULOSKELETAL: Extremities without clubbing, cyanosis, or edema. NEURO: Alert & Oriented x4 to person, place, time, situation. Moves all ext x4 Results - Labs CBC & Chem 7: 08/22/18 04:13 08/22/18 04:16 Laboratory Results - last 24 hr 08/18/18 09:00 Carcinoembryonic Ag 2.4 - Imaging Abdomen/Pelvis CT 08/18/18 12:58 1. 5.4 cm cecal mass lesion. No findings of regional adenopathy or hepatic metastasis. 2. There are 2 hypodense areas in the liver which were present back in 2012. These are both slightly larger but have imaging characteristics suggesting hemangioma. Multiphasic MR of the abdomen could be performed for further characterization if clinically warranted. 3. Patient is status post cholecystectomy. 4. 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 Patient presented to the ER with complaint of fatigue and worsening shortness of breath over the last several weeks. Patient complains of having had episode of chest pressure and worsening shortness of breath while attempting to mow his lawn. Symptoms improved with rest. Patient denies previous episodes of similar. In the ER, patient was noted to have a murmur consistent with aortic stenosis. Echocardiogram confirms severe aortic valve stenosis. Patient appears pale. Hemoglobin 7.0 g/dL noted on admission. Patient denies bright red blood per rectum or dark tarry stools. Patient admitted to [facility] for further evaluation and treatment. - transfused 2 units PRBCs - appreciate input from Cardiology - consider TAVR Cecal Mass Anemia - comgmt with GI - Hg 7.0 (08/16), 9.6 (08/18) - Pt transfused 2 units PRBCs (08/16/18) - EGD (08/18/18) --> normal EGD - Colonoscopy (08/18/18) performed by Dr. Magen Diaz - Cecal ulcer - Cecal mass - Colon polyps - Diverticulosis - await biopsy results - Abdomen/Pelvis CT 08/18/18 12:58 1. 5.4 cm cecal mass lesion. No findings of regional adenopathy or hepatic metastasis. 2. There are 2 hypodense areas in the liver which were present back in 2012. These are both slightly larger but have imaging characteristics suggesting hemangioma. Multiphasic MR of the abdomen could be performed for further characterization if clinically warranted. 3. Patient is status post cholecystectomy. 4. 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
--- NOTE | 2018-08-19 14:02 | P.PNGI ---
Subjective Interval history: Patient sitting up in chair having lunch meal clear liquid diet. Denies nausea vomiting or abdominal pain Denies any noted bleeding, patient is post EGD with colonoscopy/biopsy <Chuyita Chew - Last Filed: 08/19/18 13:51> Physical Exam Vital signs: Vital Signs 08/18/18 16:00 08/18/18 19:36 08/18/18 20:00 Temperature 97.7 F 96.7 F L Pulse Rate 68 66 59 L Respiratory Rate 18 16 Blood Pressure 184/80 H 147/66 H Pulse Oximetry 96 95 97 08/19/18 00:00 08/19/18 04:00 08/19/18 08:20 Temperature 97.8 F 98.0 F 97.8 F Pulse Rate 66 58 L 58 L Respiratory Rate 17 16 16 Blood Pressure 145/65 H 142/67 H 137/63 Pulse Oximetry 95 96 96 08/19/18 10:33 08/19/18 11:31 Temperature 97.8 F Pulse Rate 60 Respiratory Rate 16 Blood Pressure 144/65 H Pulse Oximetry 95 Intake & Output 08/18/18 08/19/18 08/19/18 18:59 06:59 18:59 Intake Total 1080 / 1080 0 / 0 780 / 780 Balance 1080 / 1080 0 / 0 780 / 780 Weight 82.6 kg Intake: IV 600 / 600 LR 1000 mL Inj 1,000 ML @ 30 600 / 600 mls/hr IV.SIG .Q24H [facility] Rx#: [id number] Oral 480 / 480 0 / 0 780 / 780 Other: # Voids 4 3 Date of Last Bowel Movement 08/18/18 08/18/18 08/19/18 # Bowel Movements 0 0 1 - Constitutional no acute distress - Routine HEENT Exam Head: Present: normocephalic - Routine Respiratory Exam Present: CTA bilaterally - Routine Cardiovascular Exam Present: murmur - Routine Abdominal Exam Present: soft, normoactive bowel sounds. Absent: tenderness, guarding, firm - Routine Skin Exam Present: dry, warm - Routine Neurological Exam Present: alert - Routine Psychiatric Exam Present: normal affect, cooperative <Chuyita Chew - Last Filed: 08/19/18 13:51> Vital signs: Vital Signs 08/19/18 00:00 08/19/18 04:00 08/19/18 08:00 Temperature 97.8 F 98.0 F Pulse Rate 66 58 L 55 L Respiratory Rate 17 16 Blood Pressure 145/65 H 142/67 H Pulse Oximetry 95 96 08/19/18 08:20 08/19/18 10:33 08/19/18 11:31 Temperature 97.8 F 97.8 F Pulse Rate 58 L 60 Respiratory Rate 16 16 Blood Pressure 137/63 144/65 H Pulse Oximetry 96 95 08/19/18 12:00 08/19/18 16:00 Temperature Pulse Rate 69 53 L Respiratory Rate Blood Pressure Pulse Oximetry Intake & Output 08/19/18 08/19/18 08/20/18 06:59 18:59 06:59 Intake Total 0 / 0 780 / 780 Balance 0 / 0 780 / 780 Weight 82.6 kg Intake: Oral 0 / 0 780 / 780 Other: # Voids 3 Date of Last Bowel Movement 08/18/18 08/19/18 # Bowel Movements 0 1 <Magen Diaz - Last Filed: 08/19/18 21:22> Results - Labs CBC & Chem 7: 08/18/18 09:00 08/18/18 09:00 Laboratory Results - last 24 hr 08/18/18 09:00 Carcinoembryonic Ag 2.4 - Imaging Impressions Abdomen/Pelvis CT 08/18/18 12:58 CONCLUSION: 1. 5.4 cm cecal mass lesion. No findings of regional adenopathy or hepatic metastasis. 2. There are 2 hypodense areas in the liver which were present back in 2012. These are both slightly larger but have imaging characteristics suggesting hemangioma. Multiphasic MR of the abdomen could be performed for further characterization if clinically warranted. 3. Patient is status post cholecystectomy. 4. 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 5.4 cm cecal mass lesion. No findings of regional adenopathy or hepatic metastasis. 2. There are 2 hypodense areas in the liver which were present back in 2012. These are both slightly larger but have imaging characteristics suggesting hemangioma. Multiphasic MR of the abdomen could be performed for further characterization if clinically warranted. 3. Patient is status post cholecystectomy. 4. 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 CEA 2.4 Possible surgical intervention for removal of mass pending cardiology and surgical input Plan -Clear liquids -Await official biopsy results -Recommended repeat colonoscopy in 1 year -Monitor labs -Monitor for bleeding -Supportive care further recommendations to follow This patient has been seen by myself and Dr. Diaz and this note is written on his behalf - Attending Attestation Dr. Diaz <Chuyita Chew - Last Filed: 08/19/18 13:51> (1) Anemia Status: Acute Code(s): D64.9 - Anemia, unspecified (2) Gastrointestinal bleeding Status: Acute Code(s): K92.2 - Gastrointestinal hemorrhage, unspecified - Plan Patient seen and examined Agree with above Continue with current supportive care Monitor labs Biopsies do not confirm malignancy although clinically I highly suspect that there may be regardless of malignancy though the polyp was extremely large and very difficult to remove endoscopically and as such our best recommendation at this point would be to proceed with a partial colectomy Case was discussed with attending physician Not much to add from a GI perspective at this point we will sign off <Magen Diaz - Last Filed: 08/19/18 21:22>
--- NOTE | 2018-08-19 17:01 | P.CONGS ---
[facility] Gen Surgery Consult Note Consult date: 08/19/18 Narrative: 87 yo M presented for fatigue and SOB noted to have severe aortic stenosis on ECHO and hgb of 7. He has been transfused 2 U RBCs. Colonoscopy has shown large sessile mass of the cecum, ulceration of the cecum, and three medium sized polyps. Path is pending. The patient does feel better after blood transfusion. He relates melena and one episode of hematochezia according to his . PSH includes inguinal hernia repair and laparoscopic cholecystectomy. Review of Systems All other systems reviewed negative except as stated in [facility] - History History Provided By: Patient - Medical History Medical History: Medical History (Last Reviewed 08/19/18 @ 07:47 by Yoly Tobias) HTN (hypertension) High cholesterol - Surgical History Surgical History: Surgical History (Last Reviewed 08/19/18 @ 07:47 by Yoly Tobias) S/P cholecystectomy - Tobacco History Second Hand Smoke Exposure: No Tobacco Use In Past 30 Days: No Smoking Status: Former smoker - Alcohol History How Often Do You Have a Drink Containing Alcohol: 4 or more times a week - Substance Use History Substance History: No History of Abuse - Travel History Recent Travel in the [place] Within the Last 8 Weeks: No Recent Travel Out of the Country Within the Last 8 Weeks: No - Immunization History Tetanus Immunization: >5 Years Medications and Allergies Active Medications: Active Medications Acetaminophen (Tylenol) 650 mg PO Q4H PRN PRN Reason: Temp > 100.4 Last Admin: 08/17/18 08:27 Dose: 650 mg Al Hydroxide/Mg Hydroxide (Milk Of [place] Liq) 30 ml PO Q12H PRN PRN Reason: Mild Constipation Flumazenil (Romazecon Inj) 0.2 mg IV.PUSH Q1M PRN PRN Reason: OVERSEDATION Haloperidol Lactate (Haldol Inj) 1 mg IV.PUSH Q15M PRN PRN Reason: for severe agitation Lorazepam (Ativan) 2 mg PO Q2H PRN PRN Reason: for CIWA 11-14 Lorazepam (Ativan Inj) 2 mg IV.PUSH Q2H PRN PRN Reason: for CIWA 11-14 Lorazepam (Ativan Inj) 2 mg IV.PUSH Q1H PRN PRN Reason: for CIWA 15-20 Lorazepam (Ativan Inj) 2 mg IV.PUSH Q15M PRN PRN Reason: for CIWA > 20 Lorazepam (Ativan) 1 mg PO Q4H PRN PRN Reason: for CIWA 8-10 Lorazepam (Ativan Inj) 1 mg IV.PUSH Q4H PRN PRN Reason: for CIWA 8-10 Ondansetron HCl (Zofran Inj) 4 mg IV.PUSH Q6H PRN PRN Reason: NAUSEA OR VOMITING Polyethylene Glycol (Miralax) 17 gm PO DAILY [facility] Last Admin: 08/19/18 10:02 Dose: 17 gm Senna/Docusate Sodium (Debra-Colace) 1 tab PO BID [facility] Last Admin: 08/19/18 10:02 Dose: Not Given Sodium Chloride (Ns Flush) 2 ml IV.FLUSH UNSCH PRN PRN Reason: FLUSH AFTER USING IV ACCESS Last Admin: 08/16/18 20:32 Dose: 2 ml Allergies Allergy/AdvReac Type Severity Reaction Status Date / Time No Known Allergies Allergy Verified 08/16/18 10:31 Home Medications Medication Instructions Recorded Confirmed Type amlodipine 10 mg PO DAILY 08/16/18 08/16/18 History aspirin 81 mg PO DAILY 08/16/18 08/16/18 History hydrochlorothiazide 12.5 mg PO DAILY 08/16/18 08/16/18 History lisinopril 20 mg PO DAILY 08/16/18 08/16/18 History simvastatin 20 mg PO QPM 08/16/18 08/16/18 History Exam Vital signs: Vital Signs 08/18/18 19:36 08/18/18 20:00 08/19/18 00:00 Temperature 96.7 F L 97.8 F Pulse Rate 66 59 L 66 Respiratory Rate 16 17 Blood Pressure 147/66 H 145/65 H Pulse Oximetry 95 97 95 08/19/18 04:00 08/19/18 08:20 08/19/18 10:33 Temperature 98.0 F 97.8 F Pulse Rate 58 L 58 L Respiratory Rate 16 16 Blood Pressure 142/67 H 137/63 Pulse Oximetry 96 96 95 08/19/18 11:31 Temperature 97.8 F Pulse Rate 60 Respiratory Rate 16 Blood Pressure 144/65 H Pulse Oximetry Intake & Output 08/18/18 08/19/18 08/19/18 18:59 06:59 18:59 Intake Total 1080 / 1080 0 / 0 780 / 780 Balance 1080 / 1080 0 / 0 Weight 82.6 kg Intake: IV 600 / 600 LR 1000 mL Inj 1,000 ML @ 30 600 / 600 mls/hr IV.SIG .Q24H [facility] Rx#: [id number] Oral 480 / 480 0 / 0 Other: # Voids 4 3 Date of Last Bowel Movement 08/18/18 08/18/18 08/19/18 # Bowel Movements 0 0 1 Narrative: GENERAL: Awake and alert. No acute distress. Cooperative. HEAD: Normocephalic. Atraumatic. EYES: Pupils equal round and reactive to light bilaterally. No scleral icterus. ENT: Moist oral mucosa. NECK: Trachea midline. CHEST: Lungs clear to auscultation bilaterally with no wheezing or rhonchi. No respiratory distress. CARDIOVASCULAR: Regular rate and rhythm. ABDOMEN: Soft, nontender, no masses palpated. EXTREMITIES: No cyanosis or edema. SKIN: Warm, dry, nonjaundiced. Results - Labs 08/18/18 09:00 08/18/18 09:00 Laboratory Results - last 24 hr 08/18/18 09:00 Carcinoembryonic Ag 2.4 - Imaging Imaging: ITS Impressions Chest X-Ray 08/17/18 08:00 CONCLUSION: Persistent mild bibasilar infiltrates Abdomen/Pelvis CT 08/18/18 12:58 CONCLUSION: 1. 5.4 cm cecal mass lesion. No findings of regional adenopathy or hepatic metastasis. 2. There are 2 hypodense areas in the liver which were present back in 2012. These are both slightly larger but have imaging characteristics suggesting hemangioma. Multiphasic MR of the abdomen could be performed for further characterization if clinically warranted. 3. Patient is status post cholecystectomy. 4. 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 Booth and Dr. Calzada. He will require ascending colectomy for bleeding colon mass likely malignancy. However , he cannot undergo general anesthesia due to severe aortic stenosis. Recommendation by Dr. Calzada is for valvuloplasty as a temporary solution for severe to allow for surgical intervention for the colon mass. If progressing well after valvuloplasty and colectomy he would be a candidate for more permanent valve repair in 3-6 months. I discussed this all in detail with the patient and his who grasp the situation well. We also discussed that doing nothing is an option but he would have issues with anemia, possible developing bowel obstruction, and eventually spread of colon malignancy. The patient desires to proceed with recommended procedures which was relayed to Drs. Booth and Zheng.
--- NOTE | 2018-08-20 07:43 | P.FRAIL ---
Frailty Index Date: August 20, 2018 Height: 177.8 cm Weight: 82 kg BMI: 26.9 Assessment Performed: Inpatient Days in Hospital at Exam: 4 - Albumin Normal Albumin range: 3.5-5.0 g/dL Albumin 2.7 g/dL (3.4-5.0) L 08/17/18 04:25 Pass/Fail: Fail - [place] Activities of Daily Living Bathing (bathes self/help in single area): [place] Dressing (gets/puts clothes on self): [place] Toileting (goes without help): [place] Transferring (unassisted or mechanical aides): [place] Continence (complete self-control): [place] Feeding (self, prep by another allowed): [place] Pass/Fail: Pass - Mold Polisher Strength 3 BMI Cutoff for Mold Polisher Strength (Kg) <= 24 <= 29 24.1 - 28 <= 30 > 28 <= 32 Mold Polisher Strength - Grasp 1: 26 Mold Polisher Strength - Grasp 2: 24 Mold Polisher Strength - Grasp 3: 26 Mold Polisher Strength - Average: 25.3 Pass/Fail: Fail - 15-Foot Walk 3 Height 15-Foot Walk Cutoff Time <= 173 cm >= 7 seconds > 173 cm >= 6 seconds 15-Foot Walk (seconds): 9 Pass/Fail: Fail (3)
--- NOTE | 2018-08-20 08:04 | P.PNCA ---
Subjective Interval history: feeling well with no complaints. denies chest pain, sob or palpitations. Medications and Allergies Active Medications: Active Medications Acetaminophen (Tylenol) 650 mg PO Q4H PRN PRN Reason: Temp > 100.4 Last Admin: 08/17/18 08:27 Dose: 650 mg Al Hydroxide/Mg Hydroxide (Milk Of Ej Still) 30 ml PO Q12H PRN PRN Reason: Mild Constipation Flumazenil (Romazecon Inj) 0.2 mg IV.PUSH Q1M PRN PRN Reason: OVERSEDATION Haloperidol Lactate (Haldol Inj) 1 mg IV.PUSH Q15M PRN PRN Reason: for severe agitation Lorazepam (Ativan) 2 mg PO Q2H PRN PRN Reason: for CIWA 11-14 Lorazepam (Ativan Inj) 2 mg IV.PUSH Q2H PRN PRN Reason: for CIWA 11-14 Lorazepam (Ativan Inj) 2 mg IV.PUSH Q1H PRN PRN Reason: for CIWA 15-20 Lorazepam (Ativan Inj) 2 mg IV.PUSH Q15M PRN PRN Reason: for CIWA > 20 Lorazepam (Ativan) 1 mg PO Q4H PRN PRN Reason: for CIWA 8-10 Lorazepam (Ativan Inj) 1 mg IV.PUSH Q4H PRN PRN Reason: for CIWA 8-10 Ondansetron HCl (Zofran Inj) 4 mg IV.PUSH Q6H PRN PRN Reason: NAUSEA OR VOMITING Polyethylene Glycol (Miralax) 17 gm PO DAILY [facility] Last Admin: 08/19/18 10:02 Dose: 17 gm Senna/Docusate Sodium (Debra-Colace) 1 tab PO BID [facility] Last Admin: 08/19/18 20:44 Dose: Not Given Sodium Chloride (Ns Flush) 2 ml IV.FLUSH UNSCH PRN PRN Reason: FLUSH AFTER USING IV ACCESS Last Admin: 08/16/18 20:32 Dose: 2 ml Allergies Allergy/AdvReac Type Severity Reaction Status Date / Time No Known Allergies Allergy Verified 08/16/18 10:31 Home Medications Medication Instructions Recorded Confirmed Type amlodipine 10 mg PO DAILY 08/16/18 08/16/18 History aspirin 81 mg PO DAILY 08/16/18 08/16/18 History hydrochlorothiazide 12.5 mg PO DAILY 08/16/18 08/16/18 History lisinopril 20 mg PO DAILY 08/16/18 08/16/18 History simvastatin 20 mg PO QPM 08/16/18 08/16/18 History Physical Exam Vital signs: Vital Signs 08/19/18 08:00 08/19/18 08:20 08/19/18 10:33 Temperature 97.8 F Pulse Rate 55 L 58 L Respiratory Rate 16 Blood Pressure 137/63 Pulse Oximetry 96 95 08/19/18 11:31 08/19/18 12:00 08/19/18 16:00 Temperature 97.8 F Pulse Rate 60 69 53 L Respiratory Rate 16 Blood Pressure 144/65 H Pulse Oximetry 08/19/18 20:00 08/20/18 00:00 08/20/18 04:00 Temperature 97.9 F 97.7 F 97.9 F Pulse Rate 59 L 55 L 58 L Respiratory Rate 18 18 18 Blood Pressure 159/68 H 150/70 H 152/75 H Pulse Oximetry 97 97 96 Intake & Output 08/19/18 08/20/18 08/20/18 18:59 06:59 18:59 Intake Total 780 / 780 0 / 0 Output Total 300 / 300 Balance 780 / 780 -300 / -300 Weight 82 kg Intake: Oral 780 / 780 0 / 0 Output: Urine 300 / 300 Other: Date of Last Bowel Movement 08/19/18 # Bowel Movements 1 0 Narrative: GENERAL: SKIN: Warm and dry. HEAD: Normocephalic. EYES: No scleral icterus. No injection or drainage. NECK: Supple, trachea midline. No JVD or lymphadenopathy. CARDIOVASCULAR: Regular rate and rhythm. III/ systolic murmur. No gallops, or rubs. RESPIRATORY: Breath sounds equal bilaterally. No accessory muscle use. GASTROINTESTINAL: Abdomen soft, non-tender, nondistended. MUSCULOSKELETAL: No cyanosis, or edema. Results 08/18/18 09:00 08/18/18 09:00 CBC 08/18/18 Range/Units 09:00 WBC 8.1 (4.0-11.0) th/mm3 RBC 3.49 L (4.50-5.90) mil/mm3 Hgb 9.6 L D (13.0-17.0) gm/dL Hct 29.0 L (39.0-51.0) % Plt Count 384 (150-450) th/mm3 Neut # (Auto) 5.5 (1.8-7.7) th/mm3 Lymph # (Auto) 1.7 (1.0-4.8) th/mm3 Nicholas # (Auto) 0.5 (0.0-0.9) th/mm3 Eos # (Auto) 0.4 (0.0-0.4) th/mm3 Baso # (Auto) 0.1 (0.0-0.2) th/mm3 Comprehensive Metabolic Panel 08/18/18 Range/Units 09:00 Sodium 142 (136-145) meq/L Potassium 3.6 (3.5-5.1) meq/L Chloride 108 H (98-107) meq/L Carbon Dioxide 26.4 (21.0-32.0) meq/L BUN 12 (7-18) mg/dL Creatinine 0.81 (0.60-1.30) mg/dL Calcium 8.2 L (8.5-10.1) mg/dL Intake and Output 08/19/18 08/20/18 08/20/18 22:59 06:59 14:59 Intake Total 0 / 0 Output Total 300 / 300 Balance -300 / -300 Intake: Oral 0 / 0 Output: Urine 300 / 300 Other: # Bowel Movements 0 Weight 82 kg - Imaging and Cardiology Imaging: Impressions Abdomen/Pelvis CT 08/18/18 12:58 CONCLUSION: 1. 5.4 cm cecal mass lesion. No findings of regional adenopathy or hepatic metastasis. 2. There are 2 hypodense areas in the liver which were present back in 2012. These are both slightly larger but have imaging characteristics suggesting hemangioma. Multiphasic MR of the abdomen could be performed for further characterization if clinically warranted. 3. Patient is status post cholecystectomy. 4. 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 Patient reports symptoms of fatigue, shortness of breath, and chest pain in the setting of severe anemia which is likely exacerbating the demand mediated symptoms. At this point the patient needs to have gastrointestinal workup which likely includes EGD and colonoscopy, okay to proceed with moderate or deep sedation for GI workup from cardiology perspective. Avoid aggressive hydration. Some orthopnea after transfusions, will give IV Lasix 20 mg x1. Patient is going to need workup for the aortic valve which includes left and right cardiac catheterization, especially given symptoms. We may be able to pursue this on an outpatient basis once the whole GI workup and treatment is completed. As outpatient, we will then have to consider whether the patient is a candidate for aortic valve replacement, either via surgical or trans-catheter percutaneous approach. (2) Anemia Code(s): D64.9 - Anemia, unspecified Status: Acute (3) Gastrointestinal bleeding Code(s): K92.2 - Gastrointestinal hemorrhage, unspecified Status: Acute - Plan 87 yo M with HTN and HLD presented on 08/16/18 with SOB and fatigue; found to be severely anemic with Hgb 7. GI workup revealed colonic bleed with large mass of cecum, likely malignant. Feeling much better after transfusion. Echo reveals severe aortic stenosis with mean gradient 42mmHg, SHEYLA 0.54cm, mild AI, EF 55-60% , PAP 55mmHg. Patient will require ascending colectomy likely next week. severe - will proceed with aortic valvuloplasty today as a temporary solution in order to proceed with colon surgery. will likely require TAVR in the near future once recovered. CT today to further evaluate valve.
[2018-08-20 10:28] LABS: Baso % (Auto) 0.7 % (0.0-2.0); Eos # (Auto) 0.4 th/mm3 (0.0-0.4); Eos % (Auto) 5.1 % (0.0-4.0); Hematocrit 30.8 % (39.0-51.0); Hemoglobin 9.9 gm/dL (13.0-17.0); Lymph # (Auto) 1.6 th/mm3 (1.0-4.8); Lymph % (Auto) 22.9 % (9.0-44.0); Mean Corpuscular Hemoglobin 26.9 pg (27.0-34.0); Mean Platelet Volume 6.7 fL (7.0-11.0); Mono # (Auto) 0.5 th/mm3 (0.0-0.9); Mono % (Auto) 7.2 % (0.0-8.0); Neut # (Auto) 4.6 th/mm3 (1.8-7.7); Neut % (Auto) 64.1 % (16.0-70.0); Platelet Count 370 th/mm3 (150-450); Red Blood Count 3.67 mil/mm3 (4.50-5.90); Red Cell Distribution Width 16.8 % (11.6-17.2); White Blood Count 7.1 th/mm3 (4.0-11.0)
[2018-08-20 10:44] LABS: Calcium 8.1 mg/dL (8.5-10.1); Carbon Dioxide 27.4 meq/L (21.0-32.0)
[2018-08-20 10:45] LABS: INR 1.1 Ratio; Prothrombin Time 11.2 sec (9.8-11.6)
[2018-08-20] MEDS ORDERED: Heparin/NS PF Inj 1,000 ML ONE (13:06)
[2018-08-20] MEDS ORDERED: fentaNYL Citrate Inj 100 MCG/2 ML Ampul ONE ×2 (13:21→13:44)
[2018-08-20] MEDS ORDERED: Heparin 10,000 UNITS/10 ML Vial (for IV use) ONE (13:22)
[2018-08-20] MEDS ORDERED: Atropine Inj 1 MG/ML Vial IV.PUSH PRN (14:29)
--- NOTE | 2018-08-20 14:44 | CATHPROC ---
[facility] HIS Report Study Information Study Number Admission Scheduled Start Study Start [id number] Aug 16 2018 12:31PM 08/20/2018 Aug 20 2018 12:50PM [place] Service Cardiac Catheterization Admit Source Facility Department Other [facility] Specialist Physician and Clinical Staff Initial Andrae Beltran Testing Director Vandana Hua,MINAL Additional Sandra Ma Recorder Marii Brower ,RT(R) ScrChong Myers,RT(R) Claire Carter,LIQUEFACTION AND REGASIFICATION HELPER TECH2 Procedures Performed Procedure Location (Site) Vessel Name Coronary Angiograms LCA Left Coronary Coronary Angiograms RCA Right Coronary L Heart Cath Pacemaker Temp Fem Vein (left) Femoral Vein Wire insertion Fem Art (right) Femoral Art Equipment Time Electro Mechanical Technologist Description Size Mfg Part Number Used/Scraped PERCLOSE, PRO GLIDE CLOSER 13:35 [employer] FR 6 [id number] *[id number] Used DEVICE PERCLOSE, PRO GLIDE CLOSER 13:35 [employer] FR 6 [address]12 *[id number] Used DEVICE [id number] 13:17 [employer] WIRE, SUPERCORE 190CM Used *[id number] BALLOON, TRUE VALVUPLASTY [id number] 13:43 BARD 18MM Used 18MM 110CM TAVR *[id number] TAVR [id number] 13:22 SERNA MAN PACING CATHETER J CURVE FR 5 Used *[id number] TRANSDUCER, TRUWAVE [id number] 13:13 SERNA MAN * Used W/STOCKCOCK *[id number] 14:23 C[employer] MED[employer] VASCADE, FR5 CLOSURE SYSTEM FR 5 Used *[id number] 14:23 [employer] MEDICAL VASCADE, FR6 CLOSURE SYSTEM FR 6\\7 Used *[id number] INTRODUCER SET, 13:22 [employer]. FR 5 [id number] *[id number] Used MICROPUNCTURE STIFF SHEATH, FR12 CHECK JOSEFINA [id number]-12.0-38-30 13:41 COOK/AALIYAH FR 12 Used PERFORMER -RB WIRE, GUIDE AMPLATZ STIFF [id number] 13:19 COOK/AALIYAH 300CM Used 300CM TAVR *[id number] TAVR 534-520T *[id number] 534-521T *[id number] 534-550S *[id number] SHEATH, FR5.5 LIAM 11CM 504-655 TAVR *1916535 TAVR 504-658X *[id number] 504-658X *[id number] 13:13 [employer] BLANKET,WARM AIR CCL * Used *[id number] 13:20 [employer] BOWL, 35OZ. DISP STERILE TAVR 35OZ. 94313 *[id number] Used [id number] 13:13 [employer] PACK, CCL CUSTOM * Used *[id number] 13:13 [employer] PACER PEN, SKIN DUAL W/ RULER * Used *[id number] 13:28 MED[employer] AL 1 DXTERITY CATHETER FR 5 Used *[id number] PIG ANG 145 DXTERITY [id number] 13:28 [employer] FR 5 Used CATHETER *[id number] 13:23 [employer] MEDICAL SHEATH, FR5.5 PRELUDE 11CM FR 5 [id number] Used [id number] 13:34 [employer] MEDICAL SHEATH, FR6.5 PRELUDE 11CM FR 6.5 038ACT Used *[id number] 13:13 [employer] MEDICAL WIRE, 3MMJ .035 180CM 180CM Used *[id number] [id number] 13:13 NAMIC MANIFOLD, 4 PORT * Used *[id number] TUBING, 72" PRESSURE [id number] 13:33 NAMIC Used INJECTION (MACHINE BASTER) 0476 13:13 [employer] OMNIPAQUE, 350 MG, 150ML 150ML [id number] Used [id number] 13:13 TERUM[employer] MEDICAL SHEATH, FR5 TERUMO (10CM) FR 5 Used *[id number] WIRE, STRIGHT GLIDE STIFF [id number] 13:17 [employer]UM[employer] MEDICAL/AALIYAH 260CM Used .035 260CM TAVR *[id number] TAVR Equipment Model, Serial, Lot Number and Expiration Data Description Model Number Serial Number Lot Number Expiration Date AL 1 DXTERITY CATHETER [id number] 05-07-2020 PERCLOSE, PRO GLIDE CLOSER [id number] 06-25-2019 DEVICE PERCLOSE, PRO GLIDE CLOSER [id number] 06-25-2019 DEVICE PIG ANG 145 DXTERITY CATHETER [id number] 02-18-2020 History: Allergies Allergy Reaction No Known Allergies History: Risk Factors Family History of Hypertension Dyslipidemia Previous NH Previous Heart Failure Premature CAD Yes Yes No No No Prior Valve Prior PCI Prior CABG Surgery No No No Cerebrovascular Peripheral Artery Chronic Lung On Dialysis Diabetes Disease Disease Disease No No No No No History: Other Current Smoker Quit Packs a Day Years Used Pack Years No 37 Years Ago 1 40 40 Labs Hgb (g/dl) Hct (%) WBC (l/cumm) Platelets (thousands) 11.60-17.00 35.00-51.00 4.00-11.00 150.00-450.00 9.9 30.8 7.1 370 Glucose (mg/dl) BUN (mg/dl) Creatinine (mg/dl) BUN:Creatinine (1:x) 74.00-106.00 7.00-18.00 0.50-1.30 10.00-20.00 114 9 0.8 11.3 Na (meq/l) K (meq/l) 136.00-145.00 3.50-5.10 144 4 INR (PTT:PT) 0.90-1.10 1.1 CPK-MB (ng/ML) 0.50-3.60 Not Drawn Medication Medication Total Dose (Bolus/Oral) Medication Total Dosage/Unit 1% XYLOCAINE 15 mL FENTANYL 200 mcg HEPARIN 6000 units VERSED 5 mg Medications (Bolus/Oral) Medication Time Given Dosage/Unit Administered By Reason 1% XYLOCAINE 08/20/2018 1:35:16 PM 15 mL Andrae Calzada 15 mL 1% XYLOCAINE given in lab by Andrae Calzada in Right Groin via Subcutaneous. Ordered by Andrae Calzada. VERSED 08/20/2018 1:35:28 PM 2 mg Adamy, Vandana 2 mg VERSED given in lab by Vandana Hua RN via Peripheral IV. Ordered by Andrae Calzada. FENTANYL 08/20/2018 1:36:42 PM 50 mcg Brentony, Vandana 50 mcg FENTANYL given in lab by Vandana Hua RN via Peripheral IV. Ordered by Andrae Calzada. FENTANYL 08/20/2018 1:43:31 PM 50 mcg Adamy, Vandana 50 mcg FENTANYL given in lab by Vandana Hua, MINAL via Peripheral IV. Ordered by Andrae Calzada. VERSED 08/20/2018 1:45:58 PM 2 mg Adamy, Vandana 2 mg VERSED given in lab by Vandana Hua RN via Peripheral IV. Ordered by Andrae Calzada. HEPARIN 08/20/2018 1:49:28 PM 6000 units Vandana Hua 6000 units HEPARIN given in lab by Vandana Hua, MINAL via Peripheral IV. Ordered by Andrae Calzada. VERSED 08/20/2018 2:10:08 PM 1 mg Vandana Hua 1 mg VERSED given in lab by Vandana Hua RN via Peripheral IV. Ordered by Andrae Calzada. FENTANYL 08/20/2018 2:11:15 PM 50 mcg Vandana Hua 50 mcg FENTANYL given in lab by Vandana Hua, MINAL via Peripheral IV. Ordered by Andrae Calzada. FENTANYL 08/20/2018 2:24:42 PM 50 mcg Vandana Hua 50 mcg FENTANYL given in lab by Vandana Hua RN via Peripheral IV. Ordered by Andrae Calzada. Medication (Drip) Medication Time Given Dosage/Unit Concentration/Unit Diluent (ml) Solution IV Solutions 08/20/2018 1:08:10 PM 50 mL (IV) NaCl .9 Patient arrived on IV Solutions via Peripheral IV. Pump/Drip Flow using NaCl .9. Initial Case Assessment Cardiovascular HR NIBP 58 179/68 Edema Present Skin color Skin None Normal Warm Dry Circulatory - Right Pulses Dorsalis Pedis Femoral 1 2 Scale (0,1,2,3,4,d) Circulatory - Left Pulses Dorsalis Pedis Femoral 1 2 Scale (0,1,2,3,4,d) Neurological State Oriented to time-place- Alert Moves all extremities person Respiration - General Respiration Rate SpO2 (%) (B/min) 22 97 Final Case Assessment Cardiovascular HR NIBP 64 159/83 Edema Present Skin color Skin None Normal Warm Dry Circulatory - Right Pulses Dorsalis Pedis Femoral 1 2 Scale (0,1,2,3,4,d) Circulatory - Left Pulses Dorsalis Pedis Femoral 1 2 Scale (0,1,2,3,4,d) Neurological State Oriented to time-place- Alert Moves all extremities person Respiration - General Respiration Rate SpO2 (%) (B/min) 22 97 Chronological Log Time Study Chronological Log 13:03:13 Patient arrived via Bed. 13:03:14 Patient Name, D.O.B, / Armband Verified By R.N. 13:07:56 Consent signed by the physician and the patient and verified by the [facility] Specialist staff. 13:07:57 Pre-op and post- op instructions given; patient acknowledges understanding of instructions. 13:08:00 Verbal Stimulation=2 Physical Stimulation=2 Airway=2 Respiration=2 TOTAL=8. (0=absent, 1=li mited, 2=present) 13:08:02 Patient has been NPO for More than 6Hrs. 13:08:03 Skin Breakdown- none per patient 13:08:05 Patient Warmer Placed on the Table. 13:08:06 Disposable Defibrillator Pads Placed On Patient. 13:08:06 Shayla Prominences Protected 13:08:09 A # 20 IV was noted in the Hand (right). Grade = 0 13:08:10 Patient arrived on IV Solutions via Peripheral IV. Pump/Drip Flow using NaCl .9. 13:08:11 A # 20 IV was noted in the Forearm (right). Grade = 0 13:08:14 History and physical on the chart or being dictated. Assessment: Initial Case, HR=58 BPM, VOJI=524/68 mmhg, Edema=None, Color=Normal, Skin = Warm, D ry Right Pulses: Cj Ped=1, Femoral=2 13:08:15 Left Pulses: Cj Ped=1, Femoral=2 Neurological: State=Alert, Ox3, EDDY Respiration: Resp=22 B/min, SpO2=97 % Vitals capture started with the following parameters, Patient=Adult, Interval=5 min, Initial Pr ntirqp=284 mmHg, 13:08:58 Deflation Rate=5 mmHg, Cuff placed on Left Arm 13:09:50 QZSA=388/68 mmhg, SpO2=94.0 % 13:14:49 HR=58 bpm, MMGX=441/68 mmhg, SpO2=97.0 %, Resp=17 B/min 13:19:46 HR=61 bpm, NEEM=904/69 mmhg, SpO2=97.0 %, Resp=18 B/min 13:22:45 Bilateral groins prepped with 2% chlorhexidine, and draped after a 3 minute waiting time. 13:25:22 HR=59 bpm, FFSA=314/69 mmhg, SpO2=95.0 %, Resp=24 B/min 13:27:13 Pressure channel 1 zeroed. 13:28:30 MD paged 13:29:32 MD arrived. 13:29:49 HR=58 bpm, DVBE=016/72 mmhg, SpO2=97.0 %, Resp=13 B/min 13:32:55 Reference ECG taken Time Out. Correct patient, correct procedure, correct physician, labs, allergies, and equipment verified with labels molder 13:33:41 team present. Fire risk assesment completed (see hard stop sheet for coding). Time Out Conc urred by MD and individual staff in procedure. 13:34:50 HR=58 bpm, XBAD=364/66 mmhg, SpO2=94.0 %, Resp=23 B/min 13:35:16 Case Start 13:35:16 15 mL 1% XYLOCAINE given in lab by Andrae Calzada in Right Groin via Subcutaneous. Ordered by Andrae Calzada. 13:35:28 2 mg VERSED given in lab by Vandana Hua, MINAL via Peripheral IV. Ordered by Baldo Calzada 13:36:42 50 mcg FENTANYL given in lab by Vandana Hua, MINAL via Peripheral IV. Ordered by St deidre Calzada. 13:37:10 Access site was Left Femoral Artery. 13:37:25 A SHEATH, FR5.5 PRELUDE 11CM FR 5 was advanced into the Fem Art (left) using the Percutaneo us technique. 13:38:28 Access site was Left Femoral Vein. 13:38:43 A SHEATH, FR6.5 PRELUDE 11CM FR 6.5 was advanced into the Fem Vein (left) using the Percuta neous technique. 13:39:53 HR=55 bpm, WWYB=900/62 mmhg, SpO2=93.0 %, Resp=10 B/min 13:40:44 Access site was Right Femoral Artery. A INTRODUCER SET, MICROPUNCTURE STIFF FR 5 was advanced into the Fem Art (right) using the Perc utaneous 13:41:11 technique. A SHEATH, FR8.5 LIAM 11CM FR 8 was exchanged in the Fem Art (right). This was necessary in or silvia to 13:41:16 accomodate a larger catheter. 13:41:42 PERCLOSE, PRO GLIDE CLOSER DEVICE FR 6 placement in the Fem Art (right) 13:41:50 PERCLOSE, PRO GLIDE CLOSER DEVICE FR 6 placement in the Fem Art (right) 13:43:31 50 mcg FENTANYL given in lab by Vandana Hua, MINAL via Peripheral IV. Ordered by St deidre Calzada. 13:43:40 A WIRE, SUPERCORE 190CM was inserted via Fem Art (right). A SHEATH, FR12 CHECK JOSEFINA PERFORMER FR 12 was exchanged in the Fem Art (right). This was necessa ry in order to 13:43:52 accomodate a larger catheter. 13:44:47 SuperCore Wire removed A JL 4.0 INFINITI CATHETER FR 5 was advanced over a wire. OMNIPAQUE, 350 MG, 150ML 150ML was us ed for 13:44:58 injections. 13:45:25 HR=64 bpm, GPAM=385/74 mmhg, SpO2=93.0 %, Resp=18 B/min 13:45:58 2 mg VERSED given in lab by Vandana Hua, MINAL via Peripheral IV. Ordered by Baldo Calzada Recorded Pressure: Ao, HR=64, Condition=Condition 1 13:46:22 (Aorta) Ao 158/54/94 13:46:30 The LCA was injected and visualized at various angles. OMNIPAQUE, 350 MG, 150ML 150ML used . After removing the current catheter a JR 4.0 INFINITI CATHETER FR 5 was advanced over a WIRE, 3 MMJ .035 180CM 13:47:35 180CM. 13:49:08 The RCA was injected and visualized at various angles. OMNIPAQUE, 350 MG, 150ML 150ML used . 13:49:28 6000 units HEPARIN given in lab by Vandana Hua, MINAL via Peripheral IV. Ordered by Andrae Calzada. After removing the current catheter a PIG ANG 145 DXTERITY CATHETER FR 5 was advanced over a WI RE, 3MMJ .035 13:49:40 180CM 180CM. 13:49:49 HR=63 bpm, FBDJ=657/65 mmhg, SpO2=88.0 %, Resp=14 B/min A PACING CATHETER J CURVE FR 5 was advanced to the right ventricle. Rate = 150, Output = ~OUTPU T~, MA = 13:51:07 ~MA~. A AL 1 DXTERITY CATHETER FR 5 was advanced over a wire. OMNIPAQUE, 350 MG, 150ML 150ML was used for 13:53:11 injections. 13:53:48 A WIRE, GUIDE AMPLATZ STIFF 300CM TAVR 300CM was inserted via Fem Art (right). 13:54:50 HR=64 bpm, GDUZ=890/56 mmhg, Resp=16 B/min 13:55:25 Activated Clotting Time Drawn 13:59:43 HR=61 bpm, ZEJK=296/58 mmhg, SpO2=94.0 %, Resp=14 B/min After removing the current catheter a PIGTAIL STR. INFINITI CATHETER FR 5 was advanced over a W NADIA, GUIDE 14:01:12 AMPLATZ STIFF 300CM TAVR 300CM. 14:02:08 A wire was inserted via Fem Art (right). Confida Wire 14:03:32 ACT (Normal Range 90-180) = 314 14:04:46 HR=60 bpm, KGKO=805/59 mmhg, SpO2=96.0 %, Resp=16 B/min 14:09:47 HR=62 bpm, MHVR=655/59 mmhg, SpO2=95.0 %, Resp=15 B/min 14:10:08 1 mg VERSED given in lab by Vandana Hua, MINAL via Peripheral IV. Ordered by Baldo Calzada 14:11:15 50 mcg FENTANYL given in lab by Vandana Hua, MINAL via Peripheral IV. Ordered by St deidre Calzada. A BALLOON, TRUE VALVUPLASTY 18MM 110CM TAVR 18MM was inserted over WIRE, 3MMJ .035 180CM 180CM via the 14:13:23 Fem Art (right). 14:14:44 OZ=146 bpm, ZRZE=782/58 mmhg, SpO2=93.0 %, Resp=14 B/min 14:15:26 Aortic balloon valvuloplasty inflation for 5 seconds A PACING CATHETER J CURVE FR 5 was advanced to the right ventricle. Rate = 150, Output = ~OUTPU T~, MA = 14:19:09 ~MA~. 14:19:30 Aortic balloon vavluloplasty inflation at 5 seconds 14:19:37 HR=63 bpm, RMCL=051/58 mmhg, SpO2=96.0 %, Resp=14 B/min 14:21:57 Angled pig Catheter was removed 14:22:06 Temp Pacer Catheter was removed 14:22:20 Balloon Removed. 14:24:42 50 mcg FENTANYL given in lab by Vandana Hua, RN via Peripheral IV. Ordered by St deidre Calzada. 14:24:58 SuperCore Wire removed 14:25:17 HR=74 bpm, VWBJ=413/74 mmhg, Resp=11 B/min 14:25:23 Case End (Physician broke scrub) 14:30:28 HR=69 bpm, XYTN=138/83 mmhg, Resp=14 B/min Assessment: Final Case, HR=64 BPM, YXLJ=991/83 mmhg, Edema=None, Color=Normal, Skin = Warm, Dry Right Pulses: Cj Ped=1, Femoral=2 14:32:41 Left Pulses: Cj Ped=1, Femoral=2 Neurological: State=Alert, Ox3, EDDY Respiration: Resp=22 B/min, SpO2=97 % 14:32:54 Catheter(s) removed without difficulty 14:32:57 VASCADE, FR6 CLOSURE SYSTEM FR 6\\7 placement in the Fem Vein (left) 14:32:58 VASCADE, FR5 CLOSURE SYSTEM FR 5 placement in the Fem Art (left) 14:33:00 Sterile dressing applied to site 14:33:01 No case complications noted. 14:33:01 Cine recording checked. 14:33:02 Bedside Report will be given. 14:33:08 A Left Heart Cath was performed. 14:34:54 HR=65 bpm, AWTU=249/71 mmhg, Resp=13 B/min 14:39:57 HR=64 bpm, ZAYY=779/57 mmhg, Resp=13 B/min 14:48:43 Patient moved to [facility] End Study - Contrast Media Used In Study Contrast Total Opened (mL) Total Used (mL) Total Wasted (mL) Omnipaque 100 100 0 End Study - Maximum Contrast Load Max Contrast Load (mL) 511.4 End Study - Radiation Exposure Fluoro Time (minutes) 11.0 End Study - Patient Disposition Complications Transferred To Interventional Outcome No Critical Care Bed No attempt made
[2018-08-20] MEDS ORDERED: Iohexol 350 MG/ML 100 ML Vial (for Cath Lab) IVCONTRAST ONE (15:03)
--- NOTE | 2018-08-20 15:10 | P.PCN ---
Date of procedure: 08/20/18 Pre-op diagnosis: Severe aortic valve stenosis Procedure: street sweeper operator: Andrae Calzada MD Primary surgical bobbin cleaning machine operator: Sandra Hale MD Procedures performed: 1. Fluoroscopy with interpretation 2. Left heart catheterization 3. Coronary angiography 4. Ascending aortography 5. Transvenous temporary pacemaker placement 6. Aortic balloon valvuloplasty Methods: Risks, benefits, and alternatives were discussed with the patient. Patient understood and consented to the procedure. Patient was brought into the cardiac catheterization lab and placed on the catheterization table. Right groin was prepped and draped in sterile fashion left groin was prepped and draped in sterile fashion. Left groin was anesthetized with 2% lidocaine. Left common femoral artery was cannulated and a 5 Peruvian 11 cm sheath was placed without difficulty. Left femoral vein was accessed and a 6 Peruvian 11 cm sheath was placed without difficulty. Right common femoral artery was cannulated with a micropuncture sheath and 8 Peruvian sheath placed without difficulty followed by upsizing to a 12 [place]uv[place] 25 cm sheath. Heparin was administered throughout the entire procedure to maintain appropriate anticoagulation. Left heart catheterization: A 5 [place]uvian AL-1 catheter was advanced to the descending aorta. A 0.035 inch straight tip Amplatz superstiff wire was then navigated across the aortic valve without difficulty. A 5 [place]uvian angled pigtail catheter was advanced to the apex over a standard J-wire exchanged to the AL-1 catheter. A 0.035 inch 260 cm VipVentatronic Confida wire was then advanced to the apex and the pigtail catheter removed Coronary angiography: 1. Left main coronary has mild luminal irregularities 2. Left anterior descending coronary is calcified and has minor luminal irregularities. The distal segment which is a small caliber size has a stenosis of 80% at the bifurcation of a diagonal branch and a small coronary aneurysm present. 3. The left circumflex has smaller obtuse marginal branch with moderate diffuse calcific disease 4. The right coronary is a dominant vessel gives rise to the posterior descending branch and has mild to moderate diffuse disease. Posterior descending branch is widely patent. Ascending aortography: Ascending aortography was performed with a 5 [place]uvian pigtail catheter in the right coronary cusp. Ascending aortography revealed the coronary cusp position. There did appear to be mildly dilated aortic root. Temporary transvenous pacemaker placement: A 5 [place]uvian balloontipped temporary transvenous pacemaker was advanced to the right ventricular apex under fluoroscopic guidance. Appropriate pacing capture was confirmed. Aortic valvuloplasty: A 18 cm x 40 cm Angel-Flow valvuloplasty balloon was advanced up and over the arch to the aortic valve. Under rapid ventricular pacing and descending aortography visualization, 2 separate inflations of the aortic valvuloplasty balloon was performed. Repeat transthoracic echocardiogram revealed residual moderate aortic valve stenosis with mildmoderate aortic insufficiency. This was an improvement compared to the severe aortic valve stenosis and mild aortic regurgitation noted on the pre-operative transthoracic echocardiogram noted. This point given the concern for worsening of the aortic regurgitation with any further improvement in the aortic valve area, we elected not to proceed with any further aggressive valvuloplasty. The gradient was reduced down to a mean gradient of 30 mmHg consistent with moderate aortic valve stenosis. Conclusions: 1. 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 Successful aortic valvuloplasty Plan: We will monitor patient closely for postprocedural complications. Right sheath was removed with 2 Perclose devices were deployed with good hemostasis. The left venous and arterial sheaths were removed with hemostatic devices placed. Temporary transvenous pacemaker was removed. Limited transthoracic echocardiogram postprocedure showed moderate aortic valve stenosis with a mean gradient of 30 mmHg. Aortic valve area was around 1.0 cm , which is still significant improvement compared to baseline. This would be adequate for clearance related to surgical intervention. For concern of worsening of the aortic insufficiency, we elected not to proceed with any further aggressive valvuloplasty. Patient should be cleared from a cardiovascular perspective for a sending colectomy. After full recovery, patient will be scheduled tentatively for transcatheter aortic valve replacement in the future.
--- NOTE | 2018-08-20 15:28 | CT ---
EXAM DATE: 08/20/2018 11:46 AM EDT AGE/SEX: 87 years / Male INDICATIONS: Pre op TAVR. Aortic stenosis. CLINICAL DATA: This is the patient's initial encounter. Patient reports that signs and symptoms have been present for 1 day and indicates a pain score of 3/10. MEDICAL/SURGICAL HISTORY: Hypertension. Cholecystectomy. RADIATION DOSE: 11.54 CTDI (mGy) COMPARISON: No prior exams available for comparison. TECHNIQUE: Volumetric scanning was performed using a multi-row detector CT scanner during bolus infu smita of 98 ml Omnipaque 350 (iohexol) nonionic water-soluble contrast as a single exam dose. The da ta was post processed with a variety of visualization algorithms including full volume maximum intens ity projection, multi-planar sliding thin slab reformation, curved planar reformation, and surface re ndering techniques. Using automated exposure control and adjustment of the mA and/or kV according to patient size, radiation dose was kept as low as reasonably achievable to obtain optimal diagnostic q uality images. DICOM format image data is available electronically for review and comparison. FINDINGS: CARDIAC: The coronary system is right dominant. Diffuse coronary artery atherosclerotic calcificatio ns with suspected hemodynamically significant stenoses. There is no pericardial effusion AORTIC ROOT/VALVE: 3 cusps are evident with significant calcifications. The aortic root measures 4.0 x 3.7 cm. Mid thoracic aorta measures 3.4 with no calcifications. THORACIC AORTA: The thoracic aortic root is normal with normal branching of the great vessels. Ther e is no evidence of aneurysm or dissection. ABDOMINAL AORTA: The aorta is normal in caliber without aneurysm or dissection. The proximal celiac and superior mesenteric arteries are patent and normal in diameter. CELIAC ARTERY: Celiac artery is heavily calcified but patent. SMA: Superior mesenteric artery is heavily calcified but patent. RIGHT RENAL ARTERY: Heavily calcified with 50-60% stenosis of the origin.. LEFT RENAL ARTERY: Heavily calcified with 50-60% stenosis of the origin. RIGHT COMMON ILIAC: No evidence of aneurysm, mural thrombus, dissection, or stenosis. Scattered calc ified plaque throughout. The common femoral measures 11 mm. LEFT COMMON ILIAC: No evidence of aneurysm, mural thrombus, dissection, or stenosis. Scattered calci fied plaque. The common femoral measures 10 mm.. THORAX: Tiny posterior layering bilateral pleural effusions with associated passive atelectasis. ABDOMEN: Small hepatic cysts versus hemangiomas. No hydronephrosis. Scattered colonic diverticuli. S uspected cecal mass previously described. PELVIS: No mass or adenopathy. CONCLUSION: 1. Diffuse coronary artery atherosclerotic calcifications with suspected hemodynamically significant stenoses. 2. Calcified aortic valve. 3. Cecal mass previously described. 4. Tiny bilateral pleural effusions. Electronically signed by: Alban Fernandez MD 08/20/2018 3:27 PM EDT
--- NOTE | 2018-08-20 15:45 | ECHRPT ---
Indication: AOV VALVULOPLASTY CONCLUSIONS Limited transthoracic echocardiogram Preoperative severe aortic valve stenosis and mild aortic valve insufficiency Postoperative moderate aortic valve stenosis and mild-moderate aortic valve insufficiency BP: / HR: Rhythm: Sinus MEASUREMENTS (Male / Female) Normal Values Technical Quality:Fair 2D ECHO LVOT Diameter 2.1 cm DOPPLER AV Peak Velocity 389.8 cm/s AV Peak Gradient 60.8 mmHg AV Mean Gradient 33.0 mmHg AV Velocity Time Integral 87.5 cm LVOT Peak Velocity 93.2 cm/s LVOT Peak Gradient 3.5 mmHg LVOT Velocity Time Integral 21.5 cm AV Area Cont Eq vti 0.9 cm AV Area Cont Eq pk 0.8 cm FINDINGS LEFT VENTRICLE Normal left ventricular systolic function. The left ventricular systolic function is normal with an estimated ejection fraction in the range of 60-65%. LEFT ATRIUM The left atrial size is mildly dilated. AORTA Mild aortic dilatation at the level of the sinuses of Valsalva. Mildly dilated proximal ascending aorta. AORTIC VALVE Trileaflet aortic valve Severe aortic valve stenosis Mild aortic valve insufficiency Heavily calcified aortic valve leaflets and annulus Postoperative moderate aortic valve stenosis and mild-moderate aortic valve insufficiency Aortic valve area is 0.95 cm. Aortic valve mean gradient is 33 mmHg. PERICARDIUM No pericardial effusion. Andrae Calzada MD, FACC (Electronically Signed) Final Date:20 August 2018 15:45
--- NOTE | 2018-08-20 16:57 | P.PNIM ---
Subjective Interval history: Pt seen at hospital room this AM and CVICU, post procedure. Pt with NO new clinical complaints. Physical Exam Vital signs: 08/19/18 20:00 08/20/18 00:00 08/20/18 04:00 Temperature 97.9 F 97.7 F 97.9 F Pulse Rate 59 L 55 L 58 L Respiratory Rate 18 18 18 Blood Pressure 159/68 H 150/70 H 152/75 H Pulse Oximetry 97 97 96 Narrative: GENERAL: SKIN: Warm and dry. HEAD: Normocephalic. EYES: No scleral icterus. No injection or drainage. NECK: Supple, trachea midline. No JVD or lymphadenopathy. CARDIOVASCULAR: Regular rate and rhythm. III/ systolic murmur. No gallops, or rubs. RESPIRATORY: Breath sounds equal bilaterally. No accessory muscle use. GASTROINTESTINAL: Abdomen soft, non-tender, nondistended. MUSCULOSKELETAL: No cyanosis, or edema. Results - Labs CBC & Chem 7: 08/22/18 04:13 08/22/18 04:16 - Imaging Chest CT 08/20/18 00:00 1. Diffuse coronary artery atherosclerotic calcifications with suspected hemodynamically significant stenoses. 2. Calcified aortic valve. 3. Cecal mass previously described. 4. Tiny bilateral pleural effusions. Assessment and Plan - Assessment (1) LONG (dyspnea on exertion) Code(s): R06.09 - Other forms of dyspnea Status: Acute Plan: Patient is an 79-year-old male with history of hypertension and hyperlipidemia. Patient presented to the ER with complaint of fatigue and worsening shortness of breath over the last several weeks. Patient complains of having had episode of chest pressure and worsening shortness of breath while attempting to mow his lawn. Symptoms improved with rest. Patient denies previous episodes of similar. In the ER, patient was noted to have a murmur consistent with aortic stenosis. Echocardiogram confirms severe aortic valve stenosis. Patient appears pale. Hemoglobin 7.0 g/dL noted on admission. Patient denies bright red blood per rectum or dark tarry stools. Patient admitted to [facility] for further evaluation and treatment. - transfused 2 units PRBCs - appreciate input from Cardiology - consider TAVR Cecal Mass Anemia - comgmt with GI - Hg 7.0 (08/16), 9.6 (08/18) - Pt transfused 2 units PRBCs (08/16/18) - EGD (08/18/18) --> normal EGD - Colonoscopy (08/18/18) performed by Dr. Magen Diaz - Cecal ulcer - Cecal mass - Colon polyps - Diverticulosis - await biopsy results - Abdomen/Pelvis CT 08/18/18 12:58 1. 5.4 cm cecal mass lesion. No findings of regional adenopathy or hepatic metastasis. 2. There are 2 hypodense areas in the liver which were present back in 2012. These are both slightly larger but have imaging characteristics suggesting hemangioma. Multiphasic MR of the abdomen could be performed for further characterization if clinically warranted. 3. Patient is status post cholecystectomy. 4. 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 Strickland 08/19, 08/20/18 - Pt wants colon resection to remove mass - Case d/w Dr. Calzada 08/20/18 - Balloon Valvuloplasty of Aortic Valve with improvement noted on echocardiogram - Pt to undergo colon resection on 08/23/18 - SCDs for DVT prophylaxis - supportive care (2) Anemia Code(s): D64.9 - Anemia, unspecified Status: Acute (3) Gastrointestinal bleeding Code(s): K92.2 - Gastrointestinal hemorrhage, unspecified Status: Acute (4) Heart murmur Code(s): R01.1 - Cardiac murmur, unspecified Status: Acute (5) Severe aortic valve stenosis Code(s): I35.0 - Nonrheumatic aortic (valve) stenosis Status: Acute (6) Cecum mass Code(s): K63.9 - Disease of intestine, unspecified Status: Acute
--- NOTE | 2018-08-20 17:17 | P.PNGS ---
Subjective Interval history: Mr. Borrego underwent aortic valvuloplasty this am with Dr. Calzada and post procedure aortic valve function is improved. He has no current complaints. Physical Exam Vital signs: Vital Signs 08/19/18 20:00 08/20/18 00:00 08/20/18 04:00 Temperature 97.9 F 97.7 F 97.9 F Pulse Rate 59 L 55 L 58 L Respiratory Rate 18 18 18 Blood Pressure 159/68 H 150/70 H 152/75 H Pulse Oximetry 97 97 96 08/20/18 08:00 08/20/18 12:00 08/20/18 15:07 Temperature Pulse Rate 78 57 L Respiratory Rate Blood Pressure Pulse Oximetry 93 L Intake & Output 08/19/18 08/20/18 08/20/18 18:59 06:59 18:59 Intake Total 780 / 780 0 / 0 Output Total 300 / 300 Balance 780 / 780 -300 / -300 Weight 82 kg Intake: Oral 780 / 780 0 / 0 Output: Urine 300 / 300 Other: Date of Last Bowel Movement 08/19/18 # Bowel Movements 1 0 Narrative: NAD Abd: soft Results - Labs 08/20/18 10:19 08/20/18 10:19 Laboratory Results - last 24 hr 08/20/18 08/20/18 08/20/18 10:19 10:19 10:19 WBC 7.1 RBC 3.67 L Hgb 9.9 L Hct 30.8 L MCV 84.0 MCH 26.9 L MCHC 32.0 RDW 16.8 Plt Count 370 MPV 6.7 L Neut % (Auto) 64.1 Lymph % (Auto) 22.9 [place] % (Auto) 7.2 Eos % (Auto) 5.1 H Baso % (Auto) 0.7 Neut # (Auto) 4.6 Lymph # (Auto) 1.6 [place] # (Auto) 0.5 Eos # (Auto) 0.4 Baso # (Auto) 0.0 WBC Differential . Differential Comment Auto diff final PT 11.2 INR 1.1 Sodium 144 Potassium 4.0 Chloride 111 H Carbon Dioxide 27.4 Anion Gap 6 BUN 9 Creatinine 0.85 Estimated GFR 85 L Random Glucose 114 H Calcium 8.1 L - Imaging Imaging: ITS Impressions Chest X-Ray 08/17/18 08:00 CONCLUSION: Persistent mild bibasilar infiltrates Abdomen/Pelvis CT 08/18/18 12:58 CONCLUSION: 1. 5.4 cm cecal mass lesion. No findings of regional adenopathy or hepatic metastasis. 2. There are 2 hypodense areas in the liver which were present back in 2012. These are both slightly larger but have imaging characteristics suggesting hemangioma. Multiphasic MR of the abdomen could be performed for further characterization if clinically warranted. 3. Patient is status post cholecystectomy. 4. 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 Diffuse coronary artery atherosclerotic calcifications with suspected hemodynamically significant stenoses. 2. Calcified aortic valve. 3. Cecal mass previously described. 4. Tiny bilateral pleural effusions. Assessment and Plan - Assessment (1) Severe aortic valve stenosis Code(s): I35.0 - Nonrheumatic aortic (valve) stenosis Status: Acute (2) Gastrointestinal bleeding Code(s): K92.2 - Gastrointestinal hemorrhage, unspecified Status: Acute (3) Cecum mass Code(s): K63.9 - Disease of intestine, unspecified Status: Acute - Plan Pathology results from cecal mass are benign although there remains possiblity of underlying malignancy. Valvuloplasty this am improved aortic valve function and he is cleared for colectomy by Dr. Calzada. I also discussed case with anesthesia Dr. Yip who states he would remain high risk but surgical intervention is reasonable. I discussed again in detail the situation with the family including his risks and the rationale for surgery. He has this large cecal mass which is likely bleeding, may soon cause obstruction, and has underlying risk of malignancy. However, surgery is his choice and some people in his situation may choose not to undergo operative intervention due to risks and age. He and his and daughter agree that they would like to proceed with ascending colectomy. Plan robot assisted ascending colectomy on Thursday PM.
[2018-08-20] MEDS: amLODIPine 10 MG Tablet PO SCH (17:39)
[2018-08-20] MEDS: Polyethylene Glycol 3350 17 GM Packet PO SCH (18:59)
[2018-08-20] MEDS: Senna/Docusate Sodium 8.6/50 MG Tablet PO SCH ×2 (19:00→20:25)
[2018-08-20] MEDS: Ferrous Sulfate 325 MG Tablet PO SCH (20:25)
--- NOTE | 2018-08-20 20:33 | MB ---
cc: Sandra Hale MD DATE: 08/20/2018 PRIMARY CARE PHYSICIAN: Braden Small MD BLAST FURNACE TENDER: Andrae Calzada MD HISTORY OF PRESENT ILLNESS: the patient was admitted on 08/16/2018 to the emergency room with progressive fatigue, dyspnea, intermittent chest pain. The symptoms were worsening with exertion, and also some lightheaded. Upon arrival, he was found to be severely anemic with a hemoglobin of 7.0. He states he has had some dark stools for the past couple of months. He does admit to a couple of beers per day, but drank heavily in the past. He underwent EGD followed by colonoscopy with snare polypectomy, biopsy on 08/18/2018, which showed a cecal ulcer, cecal mass, colon polyps, diverticulosis. CEA level was 2.4. The patient underwent a CT scan which showed a 5.4 cm cecal mass lesion. Also, some hypodense lesions in the liver. He has been seen by general surgery and at this time was scheduled for an ascending colectomy for bleeding ulcer mass, likely malignancy; however, the echocardiogram showed severe aortic stenosis. An echocardiogram on 08/16/2018 showed an aortic mean gradient of 42, valve area 0.4. Ejection fraction of 55-60%, mild tricuspid regurgitation, mild aortic insufficiency, mild mitral regurgitation. The patient underwent aortic balloon valvuloplasty today to prepare for the upcoming abdominal surgery. The patient was also found to have an 80% distal stenosis of the LAD, small caliber and size. After the aortic valve valvuloplasty ,the valve area was about 1.0 cm2. We were consulted to assist with the aortic valve valvuloplasty and also evaluation for surgical aortic valve replacement versus transcatheter aortic valve replacement. Patient frailty score is still pending. The albumin level was 2.7. STS risk score also pending and will be documented in the electronic record. PAST MEDICAL HISTORY: Hypertension, hyperlipidemia. PAST SURGICAL HISTORY: Include cholecystectomy. ALLERGIES. NO KNOWN ALLERGIES. HOME MEDICATIONS: 1. Amlodipine 10 mg. 2. Aspirin 81. 3. Hydrochlorothiazide 12.5. 4. Lisinopril 20. 3. Simvastatin 20. FAMILY HISTORY: Mother from psychiatric disorder, pneumonia. Father from TB. SOCIAL HISTORY: The patient is , 1 child. Prior remote tobacco, a couple of beers per day. Active at home, still mows his lawn, walks in the mall, uses no assistive devices. Wears reading glasses. REVIEW OF SYSTEMS: GENERAL: No night sweats, fever, heat and cold intolerance. SKIN: No psoriasis, itching or hives. HEENT: No blurred vision, hearing loss. RESPIRATORY: Positive for shortness of breath with minimal exertion. CARDIOVASCULAR: No chest pain. No paroxysmal nocturnal dyspnea or orthopnea. GASTROINTESTINAL: No diarrhea or vomiting. GENITOURINARY: No burning, frequency, urgency. CENTRAL NERVOUS SYSTEM: No history of TIA, CVA or seizure disorder. ENDOCRINOLOGY: No hypothyroidism or diabetes. PHYSICAL EXAMINATION: VITAL SIGNS: Blood pressure 150/70, heart rate of 56, O2 saturation 93 on room air. GENERAL: The patient is awake, alert, and in no acute distress. HEENT: Head is normocephalic, atraumatic. Pupils equal and reactive. Oral mucosa pink, moist. NECK: Supple. No JVD. HEART: S1, S2. Regular rate and rhythm. There is a grade 3/6 systolic murmur best noted at the left sternal border. ABDOMEN: Obese, soft, nontender. No masses or organomegaly. EXTREMITIES: Reveal no cyanosis, clubbing, or edema. Good distal pulses. LABORATORY DATA: Shows hemoglobin 9.9, hematocrit of 30. Initial hemoglobin was 7.0. He is status post 2 units packed RBCs. White cell count of 7.1, platelet count of 370. INR 1.1. Sodium 144, potassium 4.0, BUN of 9, with creatinine 0.85, glucose 114. RADIOLOGICAL EXAMS: CT of the abdomen showed a 5.4 cm cecal mass lesion 2 hypodense areas in the liver. CT chest. Some small bilateral effusions, otherwise unremarkable. IMPRESSION: This is an 87-year-old male with STS risk score of 3.6, frailty score still pending. Other comorbidities including the new diagnosis of a cecal mass, requiring abdominal colectomy, scheduling possibly on Thursday. He has had severe aortic stenosis with status post aortic valve valvuloplasty today, which improved the valve area of 1.0. RECOMMENDATION: Once the patient has recovered from his surgery, to be further evaluated by Dr. Jacobs for candidacy for transcatheter aortic valve replacement; again, once he has recovered from his abdominal surgery. Dictated by MITCH Batres Patient examined and chart reviewed on 08/20/2018. Agree with above. I agree that to temporize him from his aortic valve standpoint, BAV will be ideal at this point. Colonic surgery to follow with eventual workup for TAVR. Thank you for me to participate in the care of this patient. MD JOSH Dickens/frandy , 04:44 PM , 04:56 PM GERARDO
[2018-08-21 04:30] LABS: Hematocrit 25.8 % (39.0-51.0); Hemoglobin 8.9 gm/dL (13.0-17.0); Mean Corpuscular HGB Conc 34.7 % (32.0-36.0); Mean Corpuscular Hemoglobin 28.3 pg (27.0-34.0); Mean Corpuscular Volume 81.5 fL (80.0-100.0); Mean Platelet Volume 6.5 fL (7.0-11.0); Platelet Count 312 th/mm3 (150-450); Red Blood Count 3.16 mil/mm3 (4.50-5.90); Red Cell Distribution Width 16.7 % (11.6-17.2); White Blood Count 8.3 th/mm3 (4.0-11.0)
[2018-08-21 04:59] LABS: Calcium 7.8 mg/dL (8.5-10.1); Carbon Dioxide 25.3 meq/L (21.0-32.0); Potassium 3.7 meq/L (3.5-5.1)
--- NOTE | 2018-08-21 08:37 | P.PNCV ---
- Note Subjective/Hospital Course: 08/21 Clinically and hemodynamically stable Status post BAV yesterday Agree with proceeding with colonic resection and continued evaluation for TAVR following recovery from the colectomy. Objective: Vital Signs - 24 hr 08/20/18 12:00 08/20/18 15:07 08/20/18 19:00 Temperature 97.7 F 97.6 F Pulse Rate 56 L 76 Respiratory Rate 18 20 Blood Pressure 170/74 H 193/80 H Pulse Oximetry 94 L 93 L 96 08/20/18 20:00 08/20/18 21:00 08/20/18 22:00 Temperature 97.6 F Pulse Rate 76 64 58 L Respiratory Rate 20 Blood Pressure 193/80 H Pulse Oximetry 96 08/20/18 23:00 08/21/18 00:00 08/21/18 01:00 Temperature 97.5 F L Pulse Rate 60 60 74 Respiratory Rate 18 Blood Pressure 121/58 L Pulse Oximetry 96 08/21/18 02:00 08/21/18 03:00 08/21/18 04:00 Temperature 97.5 F L Pulse Rate 52 L 58 L 59 L Respiratory Rate 18 Blood Pressure 117/56 L Pulse Oximetry 96 96 08/21/18 05:00 08/21/18 06:00 Temperature Pulse Rate 53 L 61 Respiratory Rate Blood Pressure Pulse Oximetry Labs: Laboratory Results - last 12 hr 08/21/18 08/21/18 04:12 04:12 WBC 8.3 RBC 3.16 L Hgb 8.9 L Hct 25.8 L MCV 81.5 MCH 28.3 MCHC 34.7 RDW 16.7 Plt Count 312 MPV 6.5 L Sodium 143 Potassium 3.7 Chloride 110 H Carbon Dioxide 25.3 Anion Gap 8 BUN 14 Creatinine 0.91 Estimated GFR 79 L Random Glucose 111 H Calcium 7.8 L Result Diagrams: 08/21/18 04:12 08/21/18 04:12
[2018-08-21] MEDS: amLODIPine 10 MG Tablet PO SCH (08:54)
[2018-08-21] MEDS: Ferrous Sulfate 325 MG Tablet PO SCH ×2 (08:54→20:24)
[2018-08-21] MEDS: Senna/Docusate Sodium 8.6/50 MG Tablet PO SCH ×2 (08:54→20:24)
[2018-08-21] MEDS: Polyethylene Glycol 3350 17 GM Packet PO SCH (08:54)
--- NOTE | 2018-08-21 11:06 | P.PNIM ---
Subjective Interval history: Follow up: GI bleed with mass, , dyspnea on exertion Patient S/P aortic valvuloplasty - plan for ascending colectomy on Thursday with Dr. Strickland Patient offers no complaints at this time Physical Exam Vital signs: Vital Signs 08/20/18 12:00 08/20/18 15:07 08/20/18 19:00 Temperature 97.7 F 97.6 F Pulse Rate 56 L 76 Respiratory Rate 18 20 Blood Pressure 170/74 H 193/80 H Pulse Oximetry 94 L 93 L 96 08/20/18 20:00 08/20/18 21:00 08/20/18 22:00 Temperature 97.6 F Pulse Rate 76 64 58 L Respiratory Rate 20 Blood Pressure 193/80 H Pulse Oximetry 96 08/20/18 23:00 08/21/18 00:00 08/21/18 01:00 Temperature 97.5 F L Pulse Rate 60 60 74 Respiratory Rate 18 Blood Pressure 121/58 L Pulse Oximetry 96 08/21/18 02:00 08/21/18 03:00 08/21/18 04:00 Temperature 97.5 F L Pulse Rate 52 L 58 L 59 L Respiratory Rate 18 Blood Pressure 117/56 L Pulse Oximetry 96 96 08/21/18 05:00 08/21/18 06:00 08/21/18 07:00 Temperature 97.7 F Pulse Rate 53 L 61 60 Respiratory Rate 16 Blood Pressure 112/57 L Pulse Oximetry 96 08/21/18 08:00 08/21/18 09:00 08/21/18 10:00 Temperature Pulse Rate 52 L 54 L 57 L Respiratory Rate Blood Pressure Pulse Oximetry 96 Intake & Output 08/20/18 08/21/18 08/21/18 18:59 06:59 18:59 Intake Total 250 / 250 Output Total 275 / 275 250 / 250 Balance -25 / -25 -250 / -250 Weight 91.1 kg Intake: Oral 250 / 250 Output: Urine 275 / 275 250 / 250 Other: # Voids 1 Date of Last Bowel Movement 08/19/18 Narrative: GENERAL: This is a well-nourished, well-developed patient, in no apparent distress. CARDIOVASCULAR: Regular rate and rhythm. III/ systolic murmur. RESPIRATORY: Breath sounds equal bilaterally. No accessory muscle use. GASTROINTESTINAL: Abdomen soft, non-tender, nondistended. MUSCULOSKELETAL: No cyanosis, or edema. Results - Labs CBC & Chem 7: 08/22/18 04:13 08/22/18 04:16 Laboratory Results - last 24 hr 08/21/18 08/21/18 04:12 04:12 WBC 8.3 RBC 3.16 L Hgb 8.9 L Hct 25.8 L MCV 81.5 MCH 28.3 MCHC 34.7 RDW 16.7 Plt Count 312 MPV 6.5 L Sodium 143 Potassium 3.7 Chloride 110 H Carbon Dioxide 25.3 Anion Gap 8 BUN 14 Creatinine 0.91 Estimated GFR 79 L Random Glucose 111 H Calcium 7.8 L - Imaging Impressions Chest CT 08/20/18 00:00 CONCLUSION: 1. Diffuse coronary artery atherosclerotic calcifications with suspected hemodynamically significant stenoses. 2. Calcified aortic valve. 3. Cecal mass previously described. 4. Tiny bilateral pleural effusions. Assessment and Plan - Assessment (1) LONG (dyspnea on exertion) Code(s): R06.09 - Other forms of dyspnea Status: Acute Plan: Patient is an 79-year-old male with history of hypertension and hyperlipidemia. Patient presented to the ER with complaint of fatigue and worsening shortness of breath over the last several weeks. Patient complains of having had episode of chest pressure and worsening shortness of breath while attempting to mow his lawn. Symptoms improved with rest. Patient denies previous episodes of similar. In the ER, patient was noted to have a murmur consistent with aortic stenosis. Echocardiogram confirms severe aortic valve stenosis. Patient appears pale. Hemoglobin 7.0 g/dL noted on admission. Patient denies bright red blood per rectum or dark tarry stools. Patient admitted to [facility] for further evaluation and treatment. - transfused 2 units PRBCs - appreciate input from Cardiology - consider TAVR Cecal Mass Anemia - comgmt with GI - Hg 7.0 (08/16), 9.6 (08/18), 8.9 (08/21) - Pt transfused 2 units PRBCs (08/16/18) - EGD (08/18/18) --> normal EGD - Colonoscopy (08/18/18) performed by Dr. Magen Diaz - Cecal ulcer - Cecal mass - Colon polyps - Diverticulosis - await biopsy results - Abdomen/Pelvis CT 08/18/18 12:58 1. 5.4 cm cecal mass lesion. No findings of regional adenopathy or hepatic metastasis. 2. There are 2 hypodense areas in the liver which were present back in 2012. These are both slightly larger but have imaging characteristics suggesting hemangioma. Multiphasic MR of the abdomen could be performed for further characterization if clinically warranted. 3. Patient is status post cholecystectomy. 4. 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 2-COLONIC MUCOSAL BIOPSY WITHOUT SIGNIFICANT HISTOPATHOLOGIC ABNORMALITY NEGATIVE FOR AN EPITHELIAL POLYP AND ATTACHED FECAL MATERIAL. 3-VILLOGLANDULAR ADENOMATOUS POLYP(S). 4-COLONIC MUCOSAL BIOPSIES WITH ADENOMATOUS POLYP(S). 5-FECAL MATERIAL. - Dr. Booth's discussed the case with General Surgery, Dr. Strickland 08/19, - Dr. Booth's discussed the case with cardiology Dr. Calzada 08/20/18 - S/P Balloon Valvuloplasty of Aortic Valve with improvement noted on intraoperative echocardiogram 08/20/18 - will likely require TAVR in the near future once recovered from ascending colon resection - Due to concern for colon cancer Plan for ascending colon resection to remove mass on Thursday08/23/[address] Strickland - SCDs for DVT prophylaxis - supportive care - CBC in AM - clear liquid diet Thursday (2) Anemia Code(s): D64.9 - Anemia, unspecified Status: Acute (3) Gastrointestinal bleeding Code(s): K92.2 - Gastrointestinal hemorrhage, unspecified Status: Acute (4) Heart murmur Code(s): R01.1 - Cardiac murmur, unspecified Status: Acute (5) Severe aortic valve stenosis Code(s): I35.0 - Nonrheumatic aortic (valve) stenosis Status: Acute (6) Cecum mass Code(s): K63.9 - Disease of intestine, unspecified Status: Acute - Attending Attestation The exam, history, and the medical decision-making described in the above note were completed with the assistance of the mid-level provider. I reviewed and agree with the findings presented. I attest that I had a [id number] encounter with the patient on the same day, and personally performed and documented my assessment and findings in the medical record. Patient examined. Assessment and plan formulated with Irma Talavera PA-C. I agree with the above.
--- NOTE | 2018-08-21 13:42 | P.PNCA ---
Subjective Interval history: Patient with no complaints today. Feeling well. No chest pain, palp, dyspnea, lightheadedness, or neurologic deficits. No events on telemetry. VSS Medications and Allergies Active Medications: Active Medications Acetaminophen (Tylenol) 650 mg PO Q4H PRN PRN Reason: Temp > 100.4 Last Admin: 08/17/18 08:27 Dose: 650 mg Al Hydroxide/Mg Hydroxide (Milk Of Magnesia Liq) 30 ml PO Q12H PRN PRN Reason: Mild Constipation Amlodipine Besylate (Norvasc) 10 mg PO DAILY [facility] Last Admin: 08/21/18 08:54 Dose: 10 mg Atropine Sulfate (Atropine Inj) 0.5 mg IV.PUSH UNSCH PRN PRN Reason: VAGAL REPONSE Stop: 08/21/18 14:28 Clonidine HCl (Catapres) 0.1 mg PO Q6H PRN PRN Reason: SBP>160, DBP>90 Last Admin: 08/20/18 20:25 Dose: 0.1 mg Ferrous Sulfate (Ferosul) 325 mg PO BID [facility] Last Admin: 08/21/18 08:54 Dose: 325 mg Flumazenil (Romazecon Inj) 0.2 mg IV.PUSH Q1M PRN PRN Reason: OVERSEDATION Haloperidol Lactate (Haldol Inj) 1 mg IV.PUSH Q15M PRN PRN Reason: for severe agitation Lorazepam (Ativan) 2 mg PO Q2H PRN PRN Reason: for CIWA 11-14 Lorazepam (Ativan Inj) 2 mg IV.PUSH Q2H PRN PRN Reason: for CIWA 11-14 Lorazepam (Ativan Inj) 2 mg IV.PUSH Q1H PRN PRN Reason: for CIWA 15-20 Lorazepam (Ativan Inj) 2 mg IV.PUSH Q15M PRN PRN Reason: for CIWA > 20 Lorazepam (Ativan) 1 mg PO Q4H PRN PRN Reason: for CIWA 8-10 Lorazepam (Ativan Inj) 1 mg IV.PUSH Q4H PRN PRN Reason: for CIWA 8-10 Ondansetron HCl (Zofran Inj) 4 mg IV.PUSH Q6H PRN PRN Reason: NAUSEA OR VOMITING Polyethylene Glycol (Miralax) 17 gm PO DAILY [facility] Last Admin: 08/21/18 08:54 Dose: Not Given Senna/Docusate Sodium (Debra-Colace) 1 tab PO BID ANTONIA Last Admin: 08/21/18 08:54 Dose: Not Given Sodium Chloride (Ns Flush) 2 ml IV.FLUSH UNSCH PRN PRN Reason: FLUSH AFTER USING IV ACCESS Last Admin: 08/16/18 20:32 Dose: 2 ml Allergies Allergy/AdvReac Type Severity Reaction Status Date / Time No Known Allergies Allergy Verified 08/16/18 10:31 Home Medications Medication Instructions Recorded Confirmed Type amlodipine 10 mg PO DAILY 08/16/18 08/16/18 History aspirin 81 mg PO DAILY 08/16/18 08/16/18 History hydrochlorothiazide 12.5 mg PO DAILY 08/16/18 08/16/18 History lisinopril 20 mg PO DAILY 08/16/18 08/16/18 History simvastatin 20 mg PO QPM 08/16/18 08/16/18 History Physical Exam Vital signs: Vital Signs 08/20/18 15:07 08/20/18 19:00 08/20/18 20:00 Temperature 97.6 F 97.6 F Pulse Rate 76 76 Respiratory Rate 20 20 Blood Pressure 193/80 H 193/80 H Pulse Oximetry 93 L 96 96 08/20/18 21:00 08/20/18 22:00 08/20/18 23:00 Temperature Pulse Rate 64 58 L 60 Respiratory Rate Blood Pressure Pulse Oximetry 08/21/18 00:00 08/21/18 01:00 08/21/18 02:00 Temperature 97.5 F L Pulse Rate 60 74 52 L Respiratory Rate 18 Blood Pressure 121/58 L Pulse Oximetry 96 08/21/18 03:00 08/21/18 04:00 08/21/18 05:00 Temperature 97.5 F L Pulse Rate 58 L 59 L 53 L Respiratory Rate 18 Blood Pressure 117/56 L Pulse Oximetry 96 96 08/21/18 06:00 08/21/18 07:00 08/21/18 08:00 Temperature 97.7 F Pulse Rate 61 60 52 L Respiratory Rate 16 Blood Pressure 112/57 L Pulse Oximetry 96 96 08/21/18 09:00 08/21/18 10:00 08/21/18 11:00 Temperature 97.9 F Pulse Rate 54 L 57 L 58 L Respiratory Rate 16 Blood Pressure 122/58 L Pulse Oximetry 98 08/21/18 12:00 08/21/18 13:00 Temperature Pulse Rate 65 54 L Respiratory Rate Blood Pressure Pulse Oximetry 98 Intake & Output 08/20/18 08/21/18 08/21/18 18:59 06:59 18:59 Intake Total 250 / 250 Output Total 275 / 275 250 / 250 Balance -25 / -25 -250 / -250 Weight 91.1 kg Intake: Oral 250 / 250 Output: Urine 275 / 275 250 / 250 Other: # Voids 1 Date of Last Bowel Movement 08/19/18 Narrative: GENERAL: This is a well-nourished, well-developed patient, in no apparent distress. CARDIOVASCULAR: Regular rate and rhythm. III/ systolic murmur. RESPIRATORY: Breath sounds equal bilaterally. No accessory muscle use. GASTROINTESTINAL: Abdomen soft, non-tender, nondistended. MUSCULOSKELETAL: No cyanosis, or edema. Results 08/21/18 04:12 08/21/18 04:12 Coagulation 08/20/18 Range/Units 10:19 PT 11.2 (9.8-11.6) sec CBC 08/20/18 08/21/18 Range/Units 10:19 04:12 WBC 7.1 8.3 (4.0-11.0) th/mm3 RBC 3.67 L 3.16 L (4.50-5.90) mil/mm3 Hgb 9.9 L 8.9 L (13.0-17.0) gm/dL Hct 30.8 L 25.8 L (39.0-51.0) % Plt Count 370 312 (150-450) th/mm3 Neut # (Auto) 4.6 (1.8-7.7) th/mm3 Lymph # (Auto) 1.6 (1.0-4.8) th/mm3 [place] # (Auto) 0.5 (0.0-0.9) th/mm3 Eos # (Auto) 0.4 (0.0-0.4) th/mm3 Baso # (Auto) 0.0 (0.0-0.2) th/mm3 Comprehensive Metabolic Panel 08/20/18 08/21/18 Range/Units 10:19 04:12 Sodium 144 143 (136-145) meq/L Potassium 4.0 3.7 (3.5-5.1) meq/L Chloride 111 H 110 H (98-107) meq/L Carbon Dioxide 27.4 25.3 (21.0-32.0) meq/L BUN 9 14 (7-18) mg/dL Creatinine 0.85 0.91 (0.60-1.30) mg/dL Calcium 8.1 L 7.8 L (8.5-10.1) mg/dL Intake and Output 08/20/18 08/21/18 08/21/18 22:59 06:59 14:59 Intake Total 250 / 250 Output Total 275 / 275 250 / 250 Balance -25 / -25 -250 / -250 Intake: Oral 250 / 250 Output: Urine 275 / 275 250 / 250 Other: # Voids 1 Date of Last Bowel Movement 08/19/18 Weight 91.1 kg - Imaging and Cardiology Imaging: Impressions Chest CT 08/20/18 00:00 CONCLUSION: 1. Diffuse coronary artery atherosclerotic calcifications with suspected hemodynamically significant stenoses. 2. Calcified aortic valve. 3. Cecal mass previously described. 4. Tiny bilateral pleural effusions. Assessment and Plan - Assessment (1) Severe aortic valve stenosis Code(s): I35.0 - Nonrheumatic aortic (valve) stenosis Status: Acute (2) Anemia Code(s): D64.9 - Anemia, unspecified Status: Acute (3) Gastrointestinal bleeding Code(s): K92.2 - Gastrointestinal hemorrhage, unspecified Status: Acute - Plan 87 yo M with HTN and HLD presented on 08/16/18 with SOB and fatigue; found to be severely anemic with Hgb 7. GI workup revealed colonic bleed with large mass of cecum, likely malignant. Feeling much better after transfusion. Echo revealed severe aortic stenosis with mean gradient 42mmHg, SHEYLA 0.54cm, mild AI, EF 55-60%, PAP 55mmHg. Patient underwent LHC with aortic valvuloplasty 08/20/[address] Calzada with plan for ascending colectomy earlier next week. severe - s/p aortic valvuloplasty yesterday with reduction in mean gradient to 30mmHg consistent with moderate . This is acceptable in order to proceed with colon surgery. will likely require TAVR in the near future once recovered.
--- NOTE | 2018-08-22 00:38 | ECG ---
Date Performed: 08/20/2018 Time Performed: 15:44:14 PTAGE: 87 years EKG: Sinus bradycardia with 1st degree A-V block. Prolonged QT interval Leftward axis Possible s eptal infarct - age undetermined Abnormal ECG PREVIOUS TRACING : 08/17/2018 18.35 DOCTOR: Angel Hargrove Interpretating Date/Time 08/22/2018 00:37:03
[2018-08-22 07:00] LABS: Baso % (Auto) 0.5 % (0.0-2.0); Eos # (Auto) 0.3 th/mm3 (0.0-0.4); Eos % (Auto) 4.5 % (0.0-4.0); Hematocrit 27.4 % (39.0-51.0); Hemoglobin 9.1 gm/dL (13.0-17.0); Lymph # (Auto) 1.8 th/mm3 (1.0-4.8); Mean Corpuscular HGB Conc 33.2 % (32.0-36.0); Mean Corpuscular Hemoglobin 27.6 pg (27.0-34.0); Mean Corpuscular Volume 83.1 fL (80.0-100.0); Mean Platelet Volume 7.2 fL (7.0-11.0); Mono # (Auto) 0.6 th/mm3 (0.0-0.9); Mono % (Auto) 7.4 % (0.0-8.0); Neut % (Auto) 64.6 % (16.0-70.0); Platelet Count 296 th/mm3 (150-450); Red Cell Distribution Width 17.1 % (11.6-17.2); White Blood Count 7.8 th/mm3 (4.0-11.0)
[2018-08-22 07:20] LABS: Anion Gap 7 meq/L (5-15); Blood Urea Nitrogen 16 mg/dL (7-18); Calcium 7.6 mg/dL (8.5-10.1); Carbon Dioxide 26.3 meq/L (21.0-32.0); Chloride 111 meq/L (98-107); Glomerular Filtration Rate Greater Than 89 mL/min (>89); Glucose,Random 101 mg/dL (74-106); Sodium 144 meq/L (136-145)
[2018-08-22] MEDS: Polyethylene Glycol 3350 17 GM Packet PO SCH (08:59)
[2018-08-22] MEDS: Ferrous Sulfate 325 MG Tablet PO SCH ×2 (08:59→20:41)
[2018-08-22] MEDS: Senna/Docusate Sodium 8.6/50 MG Tablet PO SCH ×2 (08:59→20:42)
[2018-08-22] MEDS: amLODIPine 10 MG Tablet PO SCH (08:59)
--- NOTE | 2018-08-22 11:40 | P.PNIM ---
Subjective Interval history: Follow up: GI bleed with mass, , dyspnea on exertion Patient S/P aortic valvuloplasty - plan for ascending colectomy on Thursday with Dr. Strickland Patient offers no complaints at this time Physical Exam Vital signs: Vital Signs 08/21/18 12:00 08/21/18 13:00 08/21/18 14:00 Temperature Pulse Rate 65 54 L 55 L Respiratory Rate Blood Pressure Pulse Oximetry 98 08/21/18 15:00 08/21/18 16:00 08/21/18 17:00 Temperature 98.0 F Pulse Rate 57 L 56 L 74 Respiratory Rate 16 Blood Pressure 133/61 Pulse Oximetry 96 96 08/21/18 18:00 08/21/18 19:00 08/21/18 20:00 Temperature 97.7 F Pulse Rate 61 59 L 56 L Respiratory Rate 16 Blood Pressure 127/60 Pulse Oximetry 97 08/21/18 21:00 08/21/18 23:00 08/22/18 00:00 Temperature 97.8 F Pulse Rate 56 L 60 58 L Respiratory Rate 16 Blood Pressure 125/62 Pulse Oximetry 97 08/22/18 03:00 08/22/18 04:00 08/22/18 08:00 Temperature 97.7 F 97.8 F Pulse Rate 60 60 54 L Respiratory Rate 16 18 Blood Pressure 128/62 157/70 H Pulse Oximetry 96 95 Intake & Output 08/21/18 08/22/18 08/22/18 18:59 06:59 18:59 Intake Total 1200 / 1200 Output Total 550 / 550 Balance 650 / 650 Weight 91.2 kg Intake: Oral 1200 / 1200 Output: Urine 550 / 550 Other: Date of Last Bowel Movement 08/19/18 Narrative: GENERAL: This is a well-nourished, well-developed patient, in no apparent distress. CARDIOVASCULAR: Regular rate and rhythm. III/ systolic murmur. RESPIRATORY: Breath sounds equal bilaterally. No accessory muscle use. GASTROINTESTINAL: Abdomen soft, non-tender, nondistended. MUSCULOSKELETAL: No cyanosis, or edema. Results - Labs CBC & Chem 7: 08/22/18 04:13 08/22/18 04:16 Laboratory Results - last 24 hr 08/22/18 08/22/18 04:13 04:16 WBC 7.8 RBC 3.30 L Hgb 9.1 L Hct 27.4 L MCV 83.1 MCH 27.6 MCHC 33.2 RDW 17.1 Plt Count 296 MPV 7.2 Neut % (Auto) 64.6 Lymph % (Auto) 23.0 [place] % (Auto) 7.4 Eos % (Auto) 4.5 H Baso % (Auto) 0.5 Neut # (Auto) 5.0 Lymph # (Auto) 1.8 [place] # (Auto) 0.6 Eos # (Auto) 0.3 Baso # (Auto) 0.0 WBC Differential . Differential Comment Auto diff final Sodium 144 Potassium 4.0 Chloride 111 H Carbon Dioxide 26.3 Anion Gap 7 BUN 16 Creatinine 0.81 Estimated GFR Greater than 89 Random Glucose 101 Calcium 7.6 L Assessment and Plan - Assessment (1) LONG (dyspnea on exertion) Code(s): R06.09 - Other forms of dyspnea Status: Acute Plan: Patient is an 79-year-old male with history of hypertension and hyperlipidemia. Patient presented to the ER with complaint of fatigue and worsening shortness of breath over the last several weeks. Patient complains of having had episode of chest pressure and worsening shortness of breath while attempting to mow his lawn. Symptoms improved with rest. Patient denies previous episodes of similar. In the ER, patient was noted to have a murmur consistent with aortic stenosis. Echocardiogram confirms severe aortic valve stenosis. Patient appears pale. Hemoglobin 7.0 g/dL noted on admission. Patient denies bright red blood per rectum or dark tarry stools. Patient admitted to [facility] for further evaluation and treatment. - transfused 2 units PRBCs - appreciate input from Cardiology - consider TAVR Cecal Mass Anemia - comgmt with GI - Hg 7.0 (08/16), 9.6 (08/18), 8.9 (08/21), 9.1 (08/22) - Pt transfused 2 units PRBCs (08/16/18) - EGD (08/18/18) --> normal EGD - Colonoscopy (08/18/18) performed by Dr. Magen Diaz - Cecal ulcer - Cecal mass - Colon polyps - Diverticulosis - await biopsy results - Abdomen/Pelvis CT 08/18/18 12:58 1. 5.4 cm cecal mass lesion. No findings of regional adenopathy or hepatic metastasis. 2. There are 2 hypodense areas in the liver which were present back in 2012. These are both slightly larger but have imaging characteristics suggesting hemangioma. Multiphasic MR of the abdomen could be performed for further characterization if clinically warranted. 3. Patient is status post cholecystectomy. 4. 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 2-COLONIC MUCOSAL BIOPSY WITHOUT SIGNIFICANT HISTOPATHOLOGIC ABNORMALITY NEGATIVE FOR AN EPITHELIAL POLYP AND ATTACHED FECAL MATERIAL. 3-VILLOGLANDULAR ADENOMATOUS POLYP(S). 4-COLONIC MUCOSAL BIOPSIES WITH ADENOMATOUS POLYP(S). 5-FECAL MATERIAL. - Dr. Booth's discussed the case with General Surgery, Dr. Strickland 08/19, - Dr. Booth's discussed the case with cardiology Dr. Calzada 08/20/18 - S/P Balloon Valvuloplasty of Aortic Valve with improvement noted on intraoperative echocardiogram 08/20/18 - will likely require TAVR in the near future once recovered from ascending colon resection - Due to concern for colon cancer Plan for ascending colon resection to remove mass on Thursday08/23/[address] Strickland - SCDs for DVT prophylaxis - supportive care - clear liquid diet today, NPO after midnight. Bowel prep per general surgery (2) Anemia Code(s): D64.9 - Anemia, unspecified Status: Acute (3) Gastrointestinal bleeding Code(s): K92.2 - Gastrointestinal hemorrhage, unspecified Status: Acute (4) Heart murmur Code(s): R01.1 - Cardiac murmur, unspecified Status: Acute (5) Severe aortic valve stenosis Code(s): I35.0 - Nonrheumatic aortic (valve) stenosis Status: Acute (6) Cecum mass Code(s): K63.9 - Disease of intestine, unspecified Status: Acute - Attending Attestation The exam, history, and the medical decision-making described in the above note were completed with the assistance of the mid-level provider. I reviewed and agree with the findings presented. I attest that I had a [id number] encounter with the patient on the same day, and personally performed and documented my assessment and findings in the medical record. Patient examined. Assessment and plan formulated with Irma Talavera PA-C. I agree with the above. Pt to undergo bowel resection with Dr. Strickland 08/23/18 NPO after MN. Case d/w pt & at bedside. All questions answered to the best of my ability.
--- NOTE | 2018-08-22 14:16 | ECG ---
Date Performed: 08/22/2018 Time Performed: 01:59:00 PTAGE: 87 years EKG: ATRIAL FIBRILLATION WITH SLOW VENTRICULAR RESPONSE WITH ABERRANT CONDUCTION OR VENTRICULAR PREMATURE COMPLEXES INFERIOR MYOCARDIAL INFARCTION ABNORMAL ECG PREVIOUS TRACING : 08/20/2018 15.44 Compared to previous tracing, Atrial fibrillation has repla karlene sinus bradycardia DOCTOR: Angel Hargrove Interpretating Date/Time 08/22/2018 14:15:56
[2018-08-23 07:53] LABS: Hematocrit 28.9 % (39.0-51.0); Hemoglobin 9.8 gm/dL (13.0-17.0); Mean Corpuscular HGB Conc 33.8 % (32.0-36.0); Mean Corpuscular Hemoglobin 27.5 pg (27.0-34.0); Mean Corpuscular Volume 81.4 fL (80.0-100.0); Platelet Count 318 th/mm3 (150-450); Red Blood Count 3.55 mil/mm3 (4.50-5.90); Red Cell Distribution Width 17.1 % (11.6-17.2); White Blood Count 6.9 th/mm3 (4.0-11.0)
[2018-08-23] MEDS: Ferrous Sulfate 325 MG Tablet PO SCH ×2 (08:19→21:14)
[2018-08-23] MEDS: amLODIPine 10 MG Tablet PO SCH (08:19)
[2018-08-23] MEDS ORDERED: Metoprolol Tartrate 25 MG Tablet PO ONE (09:36)
[2018-08-23] MEDS ORDERED: Chlorhexidine Gluconate 2% 1 Pack (2 Cloths) TOPICAL ONE (09:36)
--- NOTE | 2018-08-23 09:49 | P.PNIM ---
Subjective Interval history: pt ambulating . no complaints Physical Exam Vital signs: Last Vital Signs Temp 97.5 F L 08/23/18 03:00 Pulse 50 L 08/23/18 04:00 Resp 16 08/23/18 03:00 BP 141/70 H 08/23/18 03:00 Pulse Ox 95 08/23/18 03:00 Narrative: heart reg. jennifer rusb/lusb lung cta abd s/nt ext no edema Results Labs CBC & Chem 7: 08/23/18 06:46 08/22/18 04:16 Assessment and Plan Assessment (1) LONG (dyspnea on exertion): Code(s): R06.09 - Other forms of dyspnea Status: Acute Plan: Assessment and Plan - Assessment (1) LONG (dyspnea on exertion) Code(s): R06.09 - Other forms of dyspnea Status: Acute Plan: Patient is an 79-year-old male with history of hypertension and hyperlipidemia. Patient presented to the ER with complaint of fatigue and worsening shortness of breath over the last several weeks. Patient complains of having had episode of chest pressure and worsening shortness of breath while attempting to mow his lawn. Symptoms improved with rest. Patient denies previous episodes of similar. In the ER, patient was noted to have a murmur consistent with aortic stenosis. Echocardiogram confirms severe aortic valve stenosis. Patient appears pale. Hemoglobin 7.0 g/dL noted on admission. Patient denies bright red blood per rectum or dark tarry stools. Patient admitted to [facility] for further evaluation and treatment. - transfused 2 units PRBCs - appreciate input from Cardiology - consider TAVR Cecal Mass Anemia - comgmt with GI - Hg 7.0 (08/16), 9.6 (08/18), 8.9 (08/21), 9.1 (08/22) - Pt transfused 2 units PRBCs (08/16/18) - EGD (08/18/18) --> normal EGD - Colonoscopy (08/18/18) performed by Dr. Magen Diaz - Cecal ulcer - Cecal mass - Colon polyps - Diverticulosis - await biopsy results - Abdomen/Pelvis CT 08/18/18 12:58 1. 5.4 cm cecal mass lesion. No findings of regional adenopathy or hepatic metastasis. 2. There are 2 hypodense areas in the liver which were present back in 2012. These are both slightly larger but have imaging characteristics suggesting hemangioma. Multiphasic MR of the abdomen could be performed for further characterization if clinically warranted. 3. Patient is status post cholecystectomy. 4. 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 2-COLONIC MUCOSAL BIOPSY WITHOUT SIGNIFICANT HISTOPATHOLOGIC ABNORMALITY NEGATIVE FOR AN EPITHELIAL POLYP AND ATTACHED FECAL MATERIAL. 3-VILLOGLANDULAR ADENOMATOUS POLYP(S). 4-COLONIC MUCOSAL BIOPSIES WITH ADENOMATOUS POLYP(S). 5-FECAL MATERIAL. - Dr. Booth's discussed the case with General Surgery, Dr. Strickland 08/19, - Dr. Booth's discussed the case with cardiology Dr. Calzada 08/20/18 - S/P Balloon Valvuloplasty of Aortic Valve with improvement noted on intraoperative echocardiogram 08/20/18 - will likely require TAVR in the near future once recovered from ascending colon resection - Due to concern for colon cancer Plan for ascending colon resection to remove mass today with Dr. Strickland - SCDs for DVT prophylaxis - supportive care - clear liquid diet today, NPO after midnight. Bowel prep per general surgery (2) Anemia: Code(s): D64.9 - Anemia, unspecified Status: Acute (3) Gastrointestinal bleeding: Code(s): K92.2 - Gastrointestinal hemorrhage, unspecified Status: Acute (4) Heart murmur: Code(s): R01.1 - Cardiac murmur, unspecified Status: Acute (5) Severe aortic valve stenosis: Code(s): I35.0 - Nonrheumatic aortic (valve) stenosis Status: Acute (6) Cecum mass: Code(s): K63.9 - Disease of intestine, unspecified Status: Acute Progress Note: Quality VTE Deep Vein Thrombosis/Pulmonary Embolism Present on Admission: No _ (1) Gastrointestinal bleeding Qualifiers: GI bleed type/associated pathology: Gastritis type: (2) Anemia Qualifiers: Anemia type: Bone marrow failure anemia type: Chronic kidney disease stage : Folate deficiency anemia type: Hemolytic anemia type: Iron deficiency anemia type: Other causes of anemia: Vitamin B12 deficiency anemia type:
[2018-08-23] MEDS ORDERED: Sodium Chlor 0.9% Inj 500 ML IV.SIG ONE (10:00)
[2018-08-23] MEDS: Polyethylene Glycol 3350 17 GM Packet PO SCH (11:50)
[2018-08-23] MEDS: Senna/Docusate Sodium 8.6/50 MG Tablet PO SCH ×2 (11:51→21:14)
[2018-08-23] MEDS ORDERED: Bupivacaine/Epinephrine Inj 0.25% 50 ML Vial ONE (12:56)
--- NOTE | 2018-08-23 13:13 | P.PNGS ---
Subjective Interval history: Stable over the weekend. No complaints. Eager to have surgery over. Physical Exam Vital signs: Vital Signs 08/22/18 16:00 08/22/18 19:00 08/22/18 19:29 Temperature 96.4 F L 97.4 F L Pulse Rate 56 L 61 Respiratory Rate 18 17 Blood Pressure 152/67 H 148/72 H Pulse Oximetry 97 97 97 08/22/18 20:00 08/22/18 23:00 08/23/18 00:00 Temperature 97.6 F Pulse Rate 71 60 52 L Respiratory Rate 16 Blood Pressure 142/69 H Pulse Oximetry 92 L 08/23/18 03:00 08/23/18 04:00 08/23/18 08:00 Temperature 97.5 F L 97.9 F Pulse Rate 60 50 L 72 Respiratory Rate 16 20 Blood Pressure 141/70 H 157/66 H Pulse Oximetry 95 97 Intake & Output 08/22/18 08/23/18 08/23/18 18:59 06:59 18:59 Intake Total 480 / 480 Balance 480 / 480 Weight 81.6 kg Intake: Oral 480 / 480 Other: # Voids 3 Date of Last Bowel Movement 08/19/18 Narrative: NAD Abd: soft, ntd. Results - Labs 08/23/18 06:46 08/22/18 04:16 Laboratory Results - last 24 hr 08/23/18 06:46 WBC 6.9 RBC 3.55 L Hgb 9.8 L Hct 28.9 L MCV 81.4 MCH 27.5 MCHC 33.8 RDW 17.1 Plt Count 318 MPV 7.0 - Imaging Imaging: ITS Impressions Chest X-Ray 08/17/18 08:00 CONCLUSION: Persistent mild bibasilar infiltrates Abdomen/Pelvis CT 08/18/18 12:58 CONCLUSION: 1. 5.4 cm cecal mass lesion. No findings of regional adenopathy or hepatic metastasis. 2. There are 2 hypodense areas in the liver which were present back in 2012. These are both slightly larger but have imaging characteristics suggesting hemangioma. Multiphasic MR of the abdomen could be performed for further characterization if clinically warranted. 3. Patient is status post cholecystectomy. 4. 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 Diffuse coronary artery atherosclerotic calcifications with suspected hemodynamically significant stenoses. 2. Calcified aortic valve. 3. Cecal mass previously described. 4. Tiny bilateral pleural effusions. Assessment and Plan - Assessment (1) Severe aortic valve stenosis Code(s): I35.0 - Nonrheumatic aortic (valve) stenosis Status: Acute (2) Gastrointestinal bleeding Code(s): K92.2 - Gastrointestinal hemorrhage, unspecified Status: Acute (3) Cecum mass Code(s): K63.9 - Disease of intestine, unspecified Status: Acute - Plan Proceed with ascending colectomy today. He has no further questions today after long discussion last Thursday. Consent signed and on chart.
[2018-08-23] MEDS ORDERED: Sugammadex Inj 200 MG/2 ML Vial IV.PUSH ONE (13:38)
[2018-08-23] MEDS ORDERED: Famotidine PF Inj 20 MG/2 ML Vial ONE (13:38)
[2018-08-23] MEDS ORDERED: Normosol-R pH 7.4 Inj 1,000 ML IV.CONT ONE (14:06)
[2018-08-23] MEDS ORDERED: Phenylephrine/NS 1000 MCG/10ML Syringe IV.PUSH ONE (14:06)
[2018-08-23] MEDS ORDERED: Lidocaine PF 1% Inj 5 ML Syringe OTHER ONE (14:06)
[2018-08-23] MEDS ORDERED: Esmolol Bolus Inj 100 MG/10 ML Vial IV.PUSH ONE (14:06)
[2018-08-23] MEDS ORDERED: ceFAZolin 2 GM Premix Inj 2 GM/50 ML PIGGYBACK IV.SIG ONE (14:30)
--- NOTE | 2018-08-23 18:39 | P.OP ---
- Preoperative Diagnosis (1) Anemia (2) Cecum mass - Postoperative Diagnosis (1) Anemia (2) Cecum mass Date of procedure: 08/23/18 Procedure: Robot assisted ascending colectomy Anesthesia: JANESA Surgeon: Alan Strickland MD Print Finishing Worker: Yuly VASQUEZ Estimated blood loss (mL): 100 Pathology: other (right colon) Operation and Findings: Operative findings: Large somewhat diffuse friable mass circumferential around cecum. Procedure in detail: The patient was taken to the operating room and placed in the supine position. Gen. endotracheal anesthesia was induced. The abdomen was prepped and draped in usual sterile fashion and a surgical timeout was performed to verify correct patient procedure and site. A 12 millimeter incision was made to the left of the umbilicus and a 5 mm Optiview port was placed. The abdomen was insufflated to 15 mmHg with CO2 gas which the patient tolerated well. An 8 mm long robotic trocar was placed to the left of the falciform in the subxiphoid position. An 8 mm robotic port was placed in the left upper abdomen. A 12 mm robotic port was placed in the suprapubic area. A 5 mm miller head assistant wet process port was placed in the left lower abdomen. The initial camera port was changed to a 12 mm port. The patient was turned slightly to the left. Small bowel was placed towards the pelvis and the left-side of the abdomen. The cecum and ascending colon were visualized. At this point the da Jay robot was docked from the patient's right side. The bipolar grasper was placed in arm 2 with the juan josé in arm 1 and a small grasper in arm 3. The ascending and transverse colon were elevated and the ileocolic vessels identified in the mesentery. Careful dissection with the juan josé electrocautery was used to identify the vessels and dissect them free from surrounding fatty tissue. The duodenum was also visualized and care was taken not to injure it. The ileocolic vessels were taken down using the vessel sealer device using multiple seals prior to transection. There was some adherence of the proximal transverse colon to the gallbladder fossa and liver secondary to previous cholecystectomy. These adhesions were taken down with the vessel sealer. Next , blunt dissection through the mesentery underneath the hepatic flexure was performed until the liver was visualized. The hepatic flexure was then taken down with the vessel sealer as well as division of the greater omentum from the transverse colon in the avascular plane. Lateral attachments of the appendix and terminal ileum and cecum and ascending colon were divided. The remaining mesentery was divided using the vessel sealer up into a point about 10 cm from the ileocecal valve. The terminal ileum was divided using the robotic blue load stapler. Mesentery to the transverse colon just to the right of midline was divided and the colon freed of surrounding fat. It was transected with the robotic blue load stapler using 2 fires. The tinea of the transverse colon was free of any fatty tissue. The terminal ileum was brought up to lay alongside the transverse colon. An enterotomy was created with juan josé electrocautery near the staple line at the antimesenteric border. A colotomy was created to this near the staple line and the transverse colon. The robotic blue load stapler was used to create a [id number] functional end-to-end anastomosis. There was no tension and no bleeding at the staple line. The common enterotomy was closed with another fire of the robotic blue load stapler after elevating the corners and midportion with 3-0 silk suture. The mesenteric defect was closed with interrupted 3-0 silk suture. Next the robot was undocked. The laparoscopic equipment was set back up. The right upper quadrant was copiously irrigated. The 12 mm port site was closed with 0 Vicryl suture using the fascial closure deviThe abdomen was allowed to desufflate and trochars were removed. The suprapubic port incision was extended to about 5 cm. Electrocautery was used to dissect through subcutaneous tissue and the anterior rectus fascia. The muscle was spread and peritoneum entered. The specimen was extracted after placement of the Cristian wound retractor. The wound retractor was removed and the peritoneum was closed with running 2-0 Vicryl in the fascia closed with running #1 PDS. The incision was irrigated. Skin closed with subcuticular 4-0 Monocryl and skin at the port sites closed with 4-0 subcuticular Monocryl and Dermabond. The patient tolerated the procedure well was extubated and taken to PACU in stable condition. All sponge and management counts were correct.
[2018-08-23] MEDS ORDERED: fentaNYL Citrate Inj 100 MCG/2 ML Ampul ONE ×2 (19:01)
[2018-08-23] MEDS ORDERED: *Labetalol HCl Inj 100 MG/20 ML Vial PERIprocedural Use ONLY IV.PUSH ONE (19:08)
[2018-08-23] MEDS ORDERED: Morphine Inj 4 MG/ML Vial IV.PUSH PRN (22:03)
[2018-08-24] MEDS: Ketorolac Inj 30 MG/ML (IVP) Vial IV.PUSH SCH ×5 (01:37→17:58)
[2018-08-24 05:15] LABS: Hematocrit 27.3 % (39.0-51.0); Hemoglobin 9.1 gm/dL (13.0-17.0); Mean Corpuscular HGB Conc 33.5 % (32.0-36.0); Mean Corpuscular Hemoglobin 27.2 pg (27.0-34.0); Mean Corpuscular Volume 81.2 fL (80.0-100.0); Mean Platelet Volume 7.1 fL (7.0-11.0); Platelet Count 290 th/mm3 (150-450); Red Blood Count 3.36 mil/mm3 (4.50-5.90); Red Cell Distribution Width 16.8 % (11.6-17.2); White Blood Count 14.6 th/mm3 (4.0-11.0)
[2018-08-24 05:46] LABS: Calcium 7.4 mg/dL (8.5-10.1); Carbon Dioxide 23.9 meq/L (21.0-32.0); Potassium 4.1 meq/L (3.5-5.1)
[2018-08-24 05:59] LABS: Total Protein 5.5 g/dL (6.4-8.2)
--- NOTE | 2018-08-24 08:48 | P.PNIM ---
Subjective Interval history: pt pulling at lines overnight and placed in restraints. 600cc urine overnight. Physical Exam Vital signs: Last Vital Signs Temp 97.6 F 08/23/18 23:00 Pulse 68 08/24/18 04:00 Resp 20 08/24/18 03:00 BP 142/65 H 08/24/18 03:00 Pulse Ox 99 08/24/18 04:00 Narrative: heart reg lung cta abds s/nt. incision approximated ext no edema lynn. yellow urine. Results Labs CBC & Chem 7: 08/24/18 05:00 08/24/18 05:00 Assessment and Plan Assessment (1) LONG (dyspnea on exertion): Code(s): R06.09 - Other forms of dyspnea Status: Acute Plan: Assessment and Plan - Assessment (1) LONG (dyspnea on exertion) Code(s): R06.09 - Other forms of dyspnea Status: Acute Plan: Patient is an 79-year-old male with history of hypertension and hyperlipidemia. Patient presented to the ER with complaint of fatigue and worsening shortness of breath over the last several weeks. Patient complains of having had episode of chest pressure and worsening shortness of breath while attempting to mow his lawn. Symptoms improved with rest. Patient denies previous episodes of similar. In the ER, patient was noted to have a murmur consistent with aortic stenosis. Echocardiogram confirms severe aortic valve stenosis. Patient appears pale. Hemoglobin 7.0 g/dL noted on admission. Patient denies bright red blood per rectum or dark tarry stools. Patient admitted to [facility] for further evaluation and treatment. - transfused 2 units PRBCs - appreciate input from Cardiology - consider TAVR Cecal Mass Anemia - comgmt with GI - Hg 7.0 (08/16), 9.6 (08/18), 8.9 (08/21), 9.1 (08/22) - Pt transfused 2 units PRBCs (08/16/18) - EGD (08/18/18) --> normal EGD - Colonoscopy (08/18/18) performed by Dr. Magen Diaz - Cecal ulcer - Cecal mass - Colon polyps - Diverticulosis - await biopsy results - Abdomen/Pelvis CT 08/18/18 12:58 1. 5.4 cm cecal mass lesion. No findings of regional adenopathy or hepatic metastasis. 2. There are 2 hypodense areas in the liver which were present back in 2012. These are both slightly larger but have imaging characteristics suggesting hemangioma. Multiphasic MR of the abdomen could be performed for further characterization if clinically warranted. 3. Patient is status post cholecystectomy. 4. 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 2-COLONIC MUCOSAL BIOPSY WITHOUT SIGNIFICANT HISTOPATHOLOGIC ABNORMALITY NEGATIVE FOR AN EPITHELIAL POLYP AND ATTACHED FECAL MATERIAL. 3-VILLOGLANDULAR ADENOMATOUS POLYP(S). 4-COLONIC MUCOSAL BIOPSIES WITH ADENOMATOUS POLYP(S). 5-FECAL MATERIAL. - Dr. Booth's discussed the case with General Surgery, Dr. Strickland 08/19, - Dr. Booth's discussed the case with cardiology Dr. Calzada 08/20/18 - S/P Balloon Valvuloplasty of Aortic Valve with improvement noted on intraoperative echocardiogram 08/20/18 - will likely require TAVR in the near future once recovered from ascending colon resection Pt undwent robot assisted right hemicolectomy 08/23 diet per gen surg gentle ivf attempt remove restraints PT daily. (2) Anemia: Code(s): D64.9 - Anemia, unspecified Status: Acute (3) Gastrointestinal bleeding: Code(s): K92.2 - Gastrointestinal hemorrhage, unspecified Status: Acute (4) Heart murmur: Code(s): R01.1 - Cardiac murmur, unspecified Status: Acute (5) Severe aortic valve stenosis: Code(s): I35.0 - Nonrheumatic aortic (valve) stenosis Status: Acute (6) Cecum mass: Code(s): K63.9 - Disease of intestine, unspecified Status: Acute Progress Note: Quality VTE Deep Vein Thrombosis/Pulmonary Embolism Present on Admission: No _ (1) Anemia Qualifiers: Anemia type: Iron deficiency anemia type: Vitamin B12 deficiency anemia type: Folate deficiency anemia type: Bone marrow failure anemia type: Hemolytic anemia type: Other causes of anemia: Chronic kidney disease stage : (2) Gastrointestinal bleeding Qualifiers: GI bleed type/associated pathology: Gastritis type:
--- NOTE | 2018-08-24 11:43 | P.PNGS ---
Subjective Interval history: He had confusion overnight and required temporary restraints. His is at bedside. He has no complaints and denies n/v. Physical Exam Vital signs: Vital Signs 08/23/18 18:55 08/23/18 19:10 08/23/18 19:25 Temperature 97.5 F L Pulse Rate 87 69 78 Respiratory Rate 20 20 20 Blood Pressure 164/67 H 151/69 H 142/63 H Pulse Oximetry 99 93 L 94 L 08/23/18 19:40 08/23/18 20:00 08/23/18 23:00 Temperature 98.0 F 97.6 F Pulse Rate 79 68 72 Respiratory Rate 18 22 16 Blood Pressure 141/65 H 130/63 154/72 H Pulse Oximetry 95 94 L 99 08/24/18 00:00 08/24/18 03:00 08/24/18 04:00 Temperature Pulse Rate 78 66 68 Respiratory Rate 20 Blood Pressure 142/65 H Pulse Oximetry 99 99 99 08/24/18 07:00 08/24/18 07:30 08/24/18 08:00 Temperature 98.4 F Pulse Rate 60 68 66 Respiratory Rate 10 L 31 H 12 Blood Pressure 165/68 H Pulse Oximetry 99 98 98 08/24/18 08:30 08/24/18 09:00 08/24/18 09:04 Temperature Pulse Rate 59 L 58 L 60 Respiratory Rate 8 L 18 12 Blood Pressure 119/60 135/63 Pulse Oximetry 98 96 96 08/24/18 09:33 08/24/18 10:00 Temperature Pulse Rate 57 L 60 Respiratory Rate 18 Blood Pressure 126/58 L Pulse Oximetry 98 Intake & Output 08/23/18 08/24/18 08/24/18 18:59 06:59 18:59 Intake Total 1999 200 / 200 700 / 700 Output Total 350 / 350 600 / 600 150 / 150 Balance 1650 / 1650 -400 / -400 550 / 550 Weight 85.6 kg Intake: IV 200 / 200 700 / 700 Ofirmev Inj 1,000 mg In 100 ml 200 / 200 100 / 100 @ 400 mls/hr IV.SIG Q6H ANTONIA Rx# :[id number] LR 1000 mL Inj 1,000 ML @ 84 600 / 600 mls/hr IV.SIG .[id number] ONE Rx#: [id number] Anesthesia Amount 1999 Output: Estimated Blood Loss 100 / 100 Urine Amount (Catheter) 250 / 250 600 / 600 150 / 150 Indwelling Urethral Catheter 250 / 250 600 / 600 150 / 150 Other: Date of Last Bowel Movement 08/19/18 08/19/18 Narrative: NAD, comfortable in bed CV: art line in place hr and bp stable Abd: soft, mild distention, inc c/d/i - Urinary Catheter Management Indwelling Urethral Catheter Cath placed during this visit: yes Reason for continuing: Hourly intake/output Insertion date: 08/23/18 Insertion time: 14:25 Results - Labs 08/24/18 05:00 08/24/18 05:00 Laboratory Results - last 24 hr 08/23/18 08/24/18 08/24/18 13:25 05:00 05:00 WBC 14.6 H D RBC 3.36 L Hgb 9.1 L Hct 27.3 L MCV 81.2 MCH 27.2 MCHC 33.5 RDW 16.8 Plt Count 290 MPV 7.1 Sodium 141 Potassium 4.1 Chloride 110 H Carbon Dioxide 23.9 Anion Gap 7 BUN 15 Creatinine 0.96 Estimated GFR 74 L Random Glucose 158 H Calcium 7.4 L* Prot Corrected Calcium 8.3 L Total Protein 5.5 L Blood Type AB Positive Antibody Screen Negative - Imaging Imaging: ITS Impressions Chest X-Ray 08/17/18 08:00 CONCLUSION: Persistent mild bibasilar infiltrates Abdomen/Pelvis CT 08/18/18 12:58 CONCLUSION: 1. 5.4 cm cecal mass lesion. No findings of regional adenopathy or hepatic metastasis. 2. There are 2 hypodense areas in the liver which were present back in 2012. These are both slightly larger but have imaging characteristics suggesting hemangioma. Multiphasic MR of the abdomen could be performed for further characterization if clinically warranted. 3. Patient is status post cholecystectomy. 4. 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 Diffuse coronary artery atherosclerotic calcifications with suspected hemodynamically significant stenoses. 2. Calcified aortic valve. 3. Cecal mass previously described. 4. Tiny bilateral pleural effusions. Assessment and Plan - Assessment (1) Severe aortic valve stenosis Code(s): I35.0 - Nonrheumatic aortic (valve) stenosis Status: Acute (2) Gastrointestinal bleeding Code(s): K92.2 - Gastrointestinal hemorrhage, unspecified Status: Acute (3) Cecum mass Code(s): K63.9 - Disease of intestine, unspecified Status: Acute - Plan POD 1 robot assisted right colectomy for large cecal mass. Stable, some confusion overnight. D/c lynn and art line. Transfer to floor telemetry. Clears. PT OOB. DVT proph: SCDs. Lovenox daily.
[2018-08-24] MEDS: Senna/Docusate Sodium 8.6/50 MG Tablet PO SCH ×2 (12:31→21:29)
[2018-08-24] MEDS: Polyethylene Glycol 3350 17 GM Packet PO SCH (12:32)
[2018-08-24] MEDS: Ferrous Sulfate 325 MG Tablet PO SCH ×2 (12:32→21:29)
[2018-08-24] MEDS: amLODIPine 10 MG Tablet PO SCH (12:32)
[2018-08-24] MEDS: Enoxaparin Inj 40 MG/0.4 ML Syringe SQ SCH (17:58)
[2018-08-25] MEDS: Ketorolac Inj 30 MG/ML (IVP) Vial IV.PUSH SCH ×4 (01:03→17:46)
[2018-08-25] MEDS: Senna/Docusate Sodium 8.6/50 MG Tablet PO SCH ×2 (08:43→20:39)
[2018-08-25] MEDS: amLODIPine 10 MG Tablet PO SCH (08:43)
[2018-08-25] MEDS: Polyethylene Glycol 3350 17 GM Packet PO SCH (08:43)
[2018-08-25] MEDS: Ferrous Sulfate 325 MG Tablet PO SCH ×2 (08:43→20:38)
--- NOTE | 2018-08-25 09:33 | P.PNIM ---
Physical Exam Vital signs: Last Vital Signs Temp 98.6 F 08/25/18 08:00 Pulse 72 08/25/18 08:00 Resp 18 08/25/18 08:00 BP 126/62 08/25/18 08:00 Pulse Ox 93 L 08/25/18 08:00 Narrative: heart reg lung cta abds s/nt. incision approximated ext no edema Results Labs CBC & Chem 7: 08/24/18 05:00 08/24/18 05:00 Assessment and Plan Assessment (1) LONG (dyspnea on exertion): Code(s): R06.09 - Other forms of dyspnea Status: Acute (2) Cecum mass: Code(s): K63.9 - Disease of intestine, unspecified Status: Acute (3) Severe aortic valve stenosis: Code(s): I35.0 - Nonrheumatic aortic (valve) stenosis Status: Acute Plan Assessment and Plan Assessment (1) LONG (dyspnea on exertion): Code(s): R06.09 - Other forms of dyspnea Status: Acute Plan: Assessment and Plan - Assessment (1) LONG (dyspnea on exertion) Code(s): R06.09 - Other forms of dyspnea Status: Acute Plan: Patient is an 79-year-old male with history of hypertension and hyperlipidemia. Patient presented to the ER with complaint of fatigue and worsening shortness of breath over the last several weeks. Patient complains of having had episode of chest pressure and worsening shortness of breath while attempting to mow his lawn. Symptoms improved with rest. Patient denies previous episodes of similar. In the ER, patient was noted to have a murmur consistent with aortic stenosis. Echocardiogram confirms severe aortic valve stenosis. Patient appears pale. Hemoglobin 7.0 g/dL noted on admission. Patient denies bright red blood per rectum or dark tarry stools. Patient admitted to [facility] for further evaluation and treatment. - transfused 2 units PRBCs - appreciate input from Cardiology - consider TAVR Cecal Mass Anemia - comgmt with GI - Hg 7.0 (08/16), 9.6 (08/18), 8.9 (08/21), 9.1 (08/22) - Pt transfused 2 units PRBCs (08/16/18) - EGD (08/18/18) --> normal EGD - Colonoscopy (08/18/18) performed by Dr. Magen Diaz - Cecal ulcer - Cecal mass - Colon polyps - Diverticulosis - await biopsy results - Abdomen/Pelvis CT 08/18/18 12:58 1. 5.4 cm cecal mass lesion. No findings of regional adenopathy or hepatic metastasis. 2. There are 2 hypodense areas in the liver which were present back in 2012. These are both slightly larger but have imaging characteristics suggesting hemangioma. Multiphasic MR of the abdomen could be performed for further characterization if clinically warranted. 3. Patient is status post cholecystectomy. 4. 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 2-COLONIC MUCOSAL BIOPSY WITHOUT SIGNIFICANT HISTOPATHOLOGIC ABNORMALITY NEGATIVE FOR AN EPITHELIAL POLYP AND ATTACHED FECAL MATERIAL. 3-VILLOGLANDULAR ADENOMATOUS POLYP(S). 4-COLONIC MUCOSAL BIOPSIES WITH ADENOMATOUS POLYP(S). 5-FECAL MATERIAL. - Dr. Booth's discussed the case with General Surgery, Dr. Strickland 08/19, - Dr. Booth's discussed the case with cardiology Dr. Calzada 08/20/18 - S/P Balloon Valvuloplasty of Aortic Valve with improvement noted on intraoperative echocardiogram 08/20/18 - will likely require TAVR in the near future once recovered from ascending colon resection Pt undwent robot assisted right hemicolectomy 08/23 diet per gen surg ivf stopped daily PT Progress Note: Quality VTE Deep Vein Thrombosis/Pulmonary Embolism Present on Admission: No
--- NOTE | 2018-08-25 14:10 | P.PNGS ---
Subjective Interval history: C/o pain. Tolerating liquid breakfast but not hungry and does not want lunch. Physical Exam Vital signs: Vital Signs 08/24/18 15:02 08/24/18 15:26 08/24/18 16:00 Temperature 98.5 F Pulse Rate 66 62 Respiratory Rate 29 H 16 Blood Pressure 133/61 Pulse Oximetry 99 98 97 08/24/18 17:00 08/24/18 18:00 08/24/18 18:17 Temperature Pulse Rate 64 68 71 Respiratory Rate 20 25 H 34 H Blood Pressure 138/66 Pulse Oximetry 96 97 97 08/24/18 19:00 08/24/18 20:00 08/24/18 20:30 Temperature 97.8 F Pulse Rate 76 92 H Respiratory Rate 18 Blood Pressure 134/63 Pulse Oximetry 95 95 08/24/18 22:00 08/24/18 23:00 08/25/18 00:00 Temperature 98.8 F 98.8 F Pulse Rate 83 84 81 Respiratory Rate 20 20 Blood Pressure 155/70 H 155/70 H Pulse Oximetry 93 L 93 L 08/25/18 03:00 08/25/18 04:00 08/25/18 08:00 Temperature 98.4 F 98.6 F Pulse Rate 78 74 72 Respiratory Rate 20 18 Blood Pressure 138/63 126/62 Pulse Oximetry 94 L 93 L 08/25/18 10:22 08/25/18 12:00 Temperature 98.3 F Pulse Rate 82 Respiratory Rate 18 Blood Pressure 143/67 H Pulse Oximetry 93 L 91 L Intake & Output 08/24/18 08/25/18 08/25/18 18:59 06:59 18:59 Intake Total 1300 / 1300 1300 / 1300 Output Total 950 / 950 503 / 503 Balance 350 / 350 797 / 797 Weight 83.6 kg 83.4 kg Intake: IV 800 / 800 1000 / 1000 Ofirmev Inj 1,000 mg In 100 ml 200 / 200 @ 400 mls/hr IV.SIG Q6H ANTONIA Rx# :[id number] LR 1000 mL Inj 1,000 ML @ 70 600 / 600 1000 / 1000 mls/hr IV.SIG .[id number] ONE Rx#: [id number] Oral 500 / 500 300 / 300 Output: Urine 500 / 500 Stool 3 / 3 Urine Amount (Catheter) 950 / 950 Indwelling Urethral Catheter 950 / 950 Other: Date of Last Bowel Movement 08/19/18 08/25/18 # Bowel Movements 0 1 Narrative: NAD Abd: soft, moderate distention, lower abdominal ttp - Urinary Catheter Management Indwelling Urethral Catheter Cath placed during this visit: yes Reason for continuing: Hourly intake/output Insertion date: 08/23/18 Insertion time: 14:25 Results - Labs 08/24/18 05:00 08/24/18 05:00 Laboratory Results - last 24 hr 08/24/18 04:30 Nasal Screen MRSA (PCR) Not detected - Imaging Imaging: ITS Impressions Chest X-Ray 08/17/18 08:00 CONCLUSION: Persistent mild bibasilar infiltrates Abdomen/Pelvis CT 08/18/18 12:58 CONCLUSION: 1. 5.4 cm cecal mass lesion. No findings of regional adenopathy or hepatic metastasis. 2. There are 2 hypodense areas in the liver which were present back in 2012. These are both slightly larger but have imaging characteristics suggesting hemangioma. Multiphasic MR of the abdomen could be performed for further characterization if clinically warranted. 3. Patient is status post cholecystectomy. 4. 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 Diffuse coronary artery atherosclerotic calcifications with suspected hemodynamically significant stenoses. 2. Calcified aortic valve. 3. Cecal mass previously described. 4. Tiny bilateral pleural effusions. Assessment and Plan - Plan POD 2 robot assisted right colectomy for large cecal mass. Mild ileus. Continue current pain meds- would avoid high dose narcotics due to risk of delirium. Clears. PT OOB. DVT proph: SCDs. Lovenox daily.
[2018-08-25] MEDS: Enoxaparin Inj 40 MG/0.4 ML Syringe SQ SCH (17:43)
[2018-08-25] MEDS ORDERED: Influenza (Quadrivalent) Vaccine 0.5 ML Syringe IM ONE (18:30)
[2018-08-26] MEDS: Ketorolac Inj 30 MG/ML (IVP) Vial IV.PUSH SCH ×5 (01:45→23:52)
[2018-08-26 07:36] LABS: Baso % (Auto) 0.2 % (0.0-2.0); Eos # (Auto) 0.1 th/mm3 (0.0-0.4); Eos % (Auto) 0.8 % (0.0-4.0); Hematocrit 29.5 % (39.0-51.0); Hemoglobin 9.3 gm/dL (13.0-17.0); Lymph # (Auto) 1.6 th/mm3 (1.0-4.8); Lymph % (Auto) 12.7 % (9.0-44.0); Mean Corpuscular HGB Conc 31.6 % (32.0-36.0); Mean Corpuscular Hemoglobin 26.3 pg (27.0-34.0); Mean Corpuscular Volume 83.2 fL (80.0-100.0); Mean Platelet Volume 7.3 fL (7.0-11.0); Mono # (Auto) 0.7 th/mm3 (0.0-0.9); Mono % (Auto) 5.7 % (0.0-8.0); Neut # (Auto) 10.3 th/mm3 (1.8-7.7); Neut % (Auto) 80.6 % (16.0-70.0); Platelet Count 321 th/mm3 (150-450); Red Blood Count 3.55 mil/mm3 (4.50-5.90); Red Cell Distribution Width 17.6 % (11.6-17.2); White Blood Count 12.8 th/mm3 (4.0-11.0)
[2018-08-26] MEDS: amLODIPine 10 MG Tablet PO SCH (09:29)
[2018-08-26] MEDS: Polyethylene Glycol 3350 17 GM Packet PO SCH (09:29)
[2018-08-26] MEDS: Ferrous Sulfate 325 MG Tablet PO SCH ×2 (09:29→20:17)
[2018-08-26] MEDS: Senna/Docusate Sodium 8.6/50 MG Tablet PO SCH ×2 (09:29→20:17)
--- NOTE | 2018-08-26 09:30 | P.PNGS ---
Subjective Interval history: He is drinking water but does not want any of the liquid breakfast. No nausea. Still has some pain. Has been walking to the bathroom on his own. Physical Exam Vital signs: Vital Signs 08/25/18 10:22 08/25/18 12:00 08/25/18 16:00 Temperature 98.3 F 98.1 F Pulse Rate 80 95 H Respiratory Rate 18 18 Blood Pressure 143/67 H 142/63 H Pulse Oximetry 93 L 91 L 92 L 08/25/18 20:00 08/26/18 00:00 08/26/18 03:45 Temperature 98.8 F Pulse Rate 82 92 H 78 Respiratory Rate 20 Blood Pressure 155/67 H Pulse Oximetry 91 L 08/26/18 04:00 08/26/18 08:00 Temperature 98.3 F 99.7 F H Pulse Rate 90 86 Respiratory Rate 20 17 Blood Pressure 126/82 160/73 H Pulse Oximetry 92 L 91 L Intake & Output 08/25/18 08/26/18 08/26/18 18:59 06:59 18:59 Intake Total 480 / 480 120 / 120 Balance 480 / 480 120 / 120 Weight 83.4 kg 83.1 kg Intake: Oral 480 / 480 120 / 120 Other: # Voids 3 1 Date of Last Bowel Movement 08/25/18 # Bowel Movements 0 Narrative: NAD Awake and alert Abd: soft, nondistended, tender in RLQ, inc c/d/i - Urinary Catheter Management Indwelling Urethral Catheter Cath placed during this visit: yes Reason for continuing: Hourly intake/output Insertion date: 08/23/18 Insertion time: 14:25 Results - Labs 08/26/18 06:51 08/24/18 05:00 Laboratory Results - last 24 hr 08/26/18 06:51 WBC 12.8 H RBC 3.55 L Hgb 9.3 L Hct 29.5 L MCV 83.2 MCH 26.3 L MCHC 31.6 L RDW 17.6 H Plt Count 321 MPV 7.3 Neut % (Auto) 80.6 H Lymph % (Auto) 12.7 [place] % (Auto) 5.7 Eos % (Auto) 0.8 Baso % (Auto) 0.2 Neut # (Auto) 10.3 H Lymph # (Auto) 1.6 [place] # (Auto) 0.7 Eos # (Auto) 0.1 Baso # (Auto) 0.0 WBC Differential . Differential Comment Auto diff final - Imaging Imaging: ITS Impressions Chest X-Ray 08/17/18 08:00 CONCLUSION: Persistent mild bibasilar infiltrates Abdomen/Pelvis CT 08/18/18 12:58 CONCLUSION: 1. 5.4 cm cecal mass lesion. No findings of regional adenopathy or hepatic metastasis. 2. There are 2 hypodense areas in the liver which were present back in 2012. These are both slightly larger but have imaging characteristics suggesting hemangioma. Multiphasic MR of the abdomen could be performed for further characterization if clinically warranted. 3. Patient is status post cholecystectomy. 4. 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 Diffuse coronary artery atherosclerotic calcifications with suspected hemodynamically significant stenoses. 2. Calcified aortic valve. 3. Cecal mass previously described. 4. Tiny bilateral pleural effusions. Assessment and Plan - Plan POD 3 robot assisted right colectomy for large cecal mass. Ileus seems resolved. Soft diet. Repeat CBC in am. PT OOB. DVT proph: SCDs. Lovenox daily. Path returned with invasive adenoca. T2, N0. Will need CT chest for further workup.
--- NOTE | 2018-08-26 09:36 | P.PNIM ---
Subjective Interval history: not very hungry. ambulating. no distress. Physical Exam Vital signs: Last Vital Signs Temp 99.7 F H 08/26/18 08:00 Pulse 86 08/26/18 08:00 Resp 17 08/26/18 08:00 BP 160/73 H 08/26/18 08:00 Pulse Ox 91 L 08/26/18 08:00 Narrative: heart reg lung cta abds s/nt. incision approximated ext no edema Results Labs CBC & Chem 7: 08/26/18 06:51 08/24/18 05:00 Assessment and Plan Assessment (1) LONG (dyspnea on exertion): Code(s): R06.09 - Other forms of dyspnea Status: Acute (2) Cecum mass: Code(s): K63.9 - Disease of intestine, unspecified Status: Acute (3) Severe aortic valve stenosis: Code(s): I35.0 - Nonrheumatic aortic (valve) stenosis Status: Acute Plan - Assessment (1) LONG (dyspnea on exertion) Code(s): R06.09 - Other forms of dyspnea Status: Acute Plan: Patient is an 79-year-old male with history of hypertension and hyperlipidemia. Patient presented to the ER with complaint of fatigue and worsening shortness of breath over the last several weeks. Patient complains of having had episode of chest pressure and worsening shortness of breath while attempting to mow his lawn. Symptoms improved with rest. Patient denies previous episodes of similar. In the ER, patient was noted to have a murmur consistent with aortic stenosis. Echocardiogram confirms severe aortic valve stenosis. Patient appears pale. Hemoglobin 7.0 g/dL noted on admission. Patient denies bright red blood per rectum or dark tarry stools. Patient admitted to [facility] for further evaluation and treatment. - transfused 2 units PRBCs - appreciate input from Cardiology - consider TAVR Cecal Mass Anemia - comgmt with GI - Hg 7.0 (08/16), 9.6 (08/18), 8.9 (08/21), 9.1 (08/22) - Pt transfused 2 units PRBCs (08/16/18) - EGD (08/18/18) --> normal EGD - Colonoscopy (08/18/18) performed by Dr. Magen Diaz - Cecal ulcer - Cecal mass - Colon polyps - Diverticulosis - await biopsy results - Abdomen/Pelvis CT 08/18/18 12:58 1. 5.4 cm cecal mass lesion. No findings of regional adenopathy or hepatic metastasis. 2. There are 2 hypodense areas in the liver which were present back in 2012. These are both slightly larger but have imaging characteristics suggesting hemangioma. Multiphasic MR of the abdomen could be performed for further characterization if clinically warranted. 3. Patient is status post cholecystectomy. 4. 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 2-COLONIC MUCOSAL BIOPSY WITHOUT SIGNIFICANT HISTOPATHOLOGIC ABNORMALITY NEGATIVE FOR AN EPITHELIAL POLYP AND ATTACHED FECAL MATERIAL. 3-VILLOGLANDULAR ADENOMATOUS POLYP(S). 4-COLONIC MUCOSAL BIOPSIES WITH ADENOMATOUS POLYP(S). 5-FECAL MATERIAL. - Dr. Booth's discussed the case with General Surgery, Dr. Strickland 08/19, - Dr. Booth's discussed the case with cardiology Dr. Calzada 08/20/18 - S/P Balloon Valvuloplasty of Aortic Valve with improvement noted on intraoperative echocardiogram 08/20/18 - will likely require TAVR in the near future once recovered from ascending colon resection Pt undwent robot assisted right hemicolectomy 08/23 diet per gen surg ivf stopped daily PT Progress Note: Quality VTE Deep Vein Thrombosis/Pulmonary Embolism Present on Admission: No
[2018-08-26] MEDS: Enoxaparin Inj 40 MG/0.4 ML Syringe SQ SCH (17:42)
[2018-08-27] MEDS: Ketorolac Inj 30 MG/ML (IVP) Vial IV.PUSH SCH ×3 (06:23→17:58)
[2018-08-27 07:34] LABS: Baso % (Auto) 0.3 % (0.0-2.0); Eos # (Auto) 0.3 th/mm3 (0.0-0.4); Eos % (Auto) 2.4 % (0.0-4.0); Hematocrit 27.4 % (39.0-51.0); Hemoglobin 9.1 gm/dL (13.0-17.0); Lymph # (Auto) 1.6 th/mm3 (1.0-4.8); Lymph % (Auto) 12.9 % (9.0-44.0); Mean Corpuscular Hemoglobin 27.1 pg (27.0-34.0); Mean Platelet Volume 7.7 fL (7.0-11.0); Mono # (Auto) 0.8 th/mm3 (0.0-0.9); Mono % (Auto) 6.8 % (0.0-8.0); Neut # (Auto) 9.5 th/mm3 (1.8-7.7); Neut % (Auto) 77.6 % (16.0-70.0); Platelet Count 353 th/mm3 (150-450); Red Blood Count 3.34 mil/mm3 (4.50-5.90); Red Cell Distribution Width 17.7 % (11.6-17.2); White Blood Count 12.2 th/mm3 (4.0-11.0)
--- NOTE | 2018-08-27 08:54 | P.PNGS ---
Subjective Interval history: He tolerated regular diet yesterday. + BM. Minimal pain. Physical Exam Vital signs: Vital Signs 08/26/18 09:00 08/26/18 10:41 08/26/18 12:00 Temperature 99.4 F Pulse Rate 83 80 Respiratory Rate 18 Blood Pressure 163/77 H Pulse Oximetry 94 L 93 L 08/26/18 16:00 08/26/18 20:00 08/26/18 23:59 Temperature 97.2 F L 98.5 F 98.4 F Pulse Rate 83 77 73 Respiratory Rate 18 16 18 Blood Pressure 133/63 170/74 H 178/76 H Pulse Oximetry 91 L 94 L 95 08/27/18 00:00 08/27/18 03:45 08/27/18 04:00 Temperature 98.1 F Pulse Rate 76 73 71 Respiratory Rate 18 Blood Pressure 142/63 H Pulse Oximetry 94 L 08/27/18 08:00 Temperature 98.1 F Pulse Rate 64 Respiratory Rate 18 Blood Pressure 158/72 H Pulse Oximetry 95 Intake & Output 08/26/18 08/27/18 08/27/18 18:59 06:59 18:59 Intake Total 600 / 600 Balance 600 / 600 Weight 81.6 kg Intake: Oral 600 / 600 Other: # Voids 3 4 Date of Last Bowel Movement 08/26/18 08/25/18 # Bowel Movements 1 Narrative: NAD Abd: soft, nondistended, inc c/d/i. Mild rlq ttp. - Urinary Catheter Management Indwelling Urethral Catheter Cath placed during this visit: yes Reason for continuing: Hourly intake/output Insertion date: 08/23/18 Insertion time: 14:25 Results - Labs 08/27/18 06:10 08/24/18 05:00 Laboratory Results - last 24 hr 08/27/18 06:10 WBC 12.2 H RBC 3.34 L Hgb 9.1 L Hct 27.4 L MCV 82.0 MCH 27.1 MCHC 33.0 RDW 17.7 H Plt Count 353 MPV 7.7 Neut % (Auto) 77.6 H Lymph % (Auto) 12.9 [place] % (Auto) 6.8 Eos % (Auto) 2.4 Baso % (Auto) 0.3 Neut # (Auto) 9.5 H Lymph # (Auto) 1.6 [place] # (Auto) 0.8 Eos # (Auto) 0.3 Baso # (Auto) 0.0 WBC Differential . Differential Comment Auto diff final - Imaging Imaging: ITS Impressions Chest X-Ray 08/17/18 08:00 CONCLUSION: Persistent mild bibasilar infiltrates Abdomen/Pelvis CT 08/18/18 12:58 CONCLUSION: 1. 5.4 cm cecal mass lesion. No findings of regional adenopathy or hepatic metastasis. 2. There are 2 hypodense areas in the liver which were present back in 2012. These are both slightly larger but have imaging characteristics suggesting hemangioma. Multiphasic MR of the abdomen could be performed for further characterization if clinically warranted. 3. Patient is status post cholecystectomy. 4. 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 Diffuse coronary artery atherosclerotic calcifications with suspected hemodynamically significant stenoses. 2. Calcified aortic valve. 3. Cecal mass previously described. 4. Tiny bilateral pleural effusions. Assessment and Plan - Plan POD 4 robot assisted right colectomy for large cecal mass. Ileus seems resolved. Soft diet. Repeat CBC in am. PT OOB. DVT proph: SCDs. Lovenox daily. Path returned with invasive adenoca. T2, N0. CT chest today. Likely ok for dc home tomorrow.
[2018-08-27] MEDS: Ferrous Sulfate 325 MG Tablet PO SCH ×2 (09:45→23:37)
[2018-08-27] MEDS: Senna/Docusate Sodium 8.6/50 MG Tablet PO SCH ×2 (09:45→23:37)
[2018-08-27] MEDS: amLODIPine 10 MG Tablet PO SCH (09:45)
[2018-08-27] MEDS: Polyethylene Glycol 3350 17 GM Packet PO SCH (09:46)
--- NOTE | 2018-08-27 10:47 | P.PNIM ---
Subjective Interval history: ate [employer]percent food yesterday denies sig. pain has been oob. Physical Exam Vital signs: Last Vital Signs Temp 98.1 F 08/27/18 08:00 Pulse 74 08/27/18 09:00 Resp 18 08/27/18 08:00 BP 158/72 H 08/27/18 08:00 Pulse Ox 95 08/27/18 08:00 Narrative: heart reg lung cta abds s/nt. incision approximated ext no edema Results Labs CBC & Chem 7: 08/27/18 06:10 08/24/18 05:00 Assessment and Plan Assessment (1) LONG (dyspnea on exertion): Code(s): R06.09 - Other forms of dyspnea Status: Acute Plan: Assessment and Plan - Assessment (1) LONG (dyspnea on exertion) Code(s): R06.09 - Other forms of dyspnea Status: Acute Plan: Patient is an 79-year-old male with history of hypertension and hyperlipidemia. Patient presented to the ER with complaint of fatigue and worsening shortness of breath over the last several weeks. Patient complains of having had episode of chest pressure and worsening shortness of breath while attempting to mow his lawn. Symptoms improved with rest. Patient denies previous episodes of similar. In the ER, patient was noted to have a murmur consistent with aortic stenosis. Echocardiogram confirms severe aortic valve stenosis. Patient appears pale. Hemoglobin 7.0 g/dL noted on admission. Patient denies bright red blood per rectum or dark tarry stools. Patient admitted to [facility] for further evaluation and treatment. - transfused 2 units PRBCs - appreciate input from Cardiology - consider TAVR Cecal Mass Anemia - comgmt with GI - Hg 7.0 (08/16), 9.6 (08/18), 8.9 (08/21), 9.1 (08/22) - Pt transfused 2 units PRBCs (08/16/18) - EGD (08/18/18) --> normal EGD - Colonoscopy (08/18/18) performed by Dr. Magen Diaz - Cecal ulcer - Cecal mass - Colon polyps - Diverticulosis - Abdomen/Pelvis CT 08/18/18 12:58 1. 5.4 cm cecal mass lesion. No findings of regional adenopathy or hepatic metastasis. 2. There are 2 hypodense areas in the liver which were present back in 2012. These are both slightly larger but have imaging characteristics suggesting hemangioma. Multiphasic MR of the abdomen could be performed for further characterization if clinically warranted. 3. Patient is status post cholecystectomy. 4. 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 2-COLONIC MUCOSAL BIOPSY WITHOUT SIGNIFICANT HISTOPATHOLOGIC ABNORMALITY NEGATIVE FOR AN EPITHELIAL POLYP AND ATTACHED FECAL MATERIAL. 3-VILLOGLANDULAR ADENOMATOUS POLYP(S). 4-COLONIC MUCOSAL BIOPSIES WITH ADENOMATOUS POLYP(S). 5-FECAL MATERIAL. - Dr. Booth's discussed the case with General Surgery, Dr. Strickland 08/19, - Dr. Booth's discussed the case with cardiology Dr. Calzada 08/20/18 - S/P Balloon Valvuloplasty of Aortic Valve with improvement noted on intraoperative echocardiogram 08/20/18 - will likely require TAVR in the near future once recovered from ascending colon resection Pt undwent robot assisted right hemicolectomy 08/23 path: invasive adenoca with clear margins. no lymphovascular invasion identified diet per gen surg PT daily. dc home tomorrow. discussed with Dr Strickland. (2) Cecum mass: Code(s): K63.9 - Disease of intestine, unspecified Status: Acute (3) Severe aortic valve stenosis: Code(s): I35.0 - Nonrheumatic aortic (valve) stenosis Status: Acute Progress Note: Quality VTE Deep Vein Thrombosis/Pulmonary Embolism Present on Admission: No
[2018-08-27] MEDS: Enoxaparin Inj 40 MG/0.4 ML Syringe SQ SCH (17:58)
[2018-08-28] MEDS: Ketorolac Inj 30 MG/ML (IVP) Vial IV.PUSH SCH ×4 (00:34→18:48)
[2018-08-28 07:31] LABS: Baso % (Auto) 0.4 % (0.0-2.0); Eos # (Auto) 0.2 th/mm3 (0.0-0.4); Eos % (Auto) 2.4 % (0.0-4.0); Hematocrit 27.9 % (39.0-51.0); Hemoglobin 9.1 gm/dL (13.0-17.0); Lymph # (Auto) 1.6 th/mm3 (1.0-4.8); Lymph % (Auto) 15.5 % (9.0-44.0); Mean Corpuscular HGB Conc 32.8 % (32.0-36.0); Mean Corpuscular Hemoglobin 27.3 pg (27.0-34.0); Mean Corpuscular Volume 83.2 fL (80.0-100.0); Mean Platelet Volume 7.1 fL (7.0-11.0); Mono # (Auto) 0.8 th/mm3 (0.0-0.9); Mono % (Auto) 7.9 % (0.0-8.0); Neut # (Auto) 7.6 th/mm3 (1.8-7.7); Neut % (Auto) 73.8 % (16.0-70.0); Platelet Count 377 th/mm3 (150-450); Red Blood Count 3.35 mil/mm3 (4.50-5.90); Red Cell Distribution Width 17.2 % (11.6-17.2); White Blood Count 10.3 th/mm3 (4.0-11.0)
[2018-08-28] MEDS: Polyethylene Glycol 3350 17 GM Packet PO SCH (08:02)
[2018-08-28] MEDS: Ferrous Sulfate 325 MG Tablet PO SCH ×2 (08:03→21:42)
[2018-08-28] MEDS: Senna/Docusate Sodium 8.6/50 MG Tablet PO SCH ×2 (08:03→21:43)
[2018-08-28] MEDS: amLODIPine 10 MG Tablet PO SCH (08:05)
--- NOTE | 2018-08-28 09:41 | P.PNIM ---
Subjective Interval history: complained of bad night. some abdomen pain and poor appetitite. was refusing meds from nurse this AM. Physical Exam Vital signs: Last Vital Signs Temp 97.5 F L 08/28/18 08:00 Pulse 79 08/28/18 08:00 Resp 18 08/28/18 08:00 BP 177/74 H 08/28/18 08:00 Pulse Ox 95 08/28/18 08:00 Narrative: heart reg lung cta abds s/nt. incision approximated ext no edema Results Labs CBC & Chem 7: 08/28/18 05:20 08/24/18 05:00 Assessment and Plan Assessment (1) LONG (dyspnea on exertion): Code(s): R06.09 - Other forms of dyspnea Status: Acute Plan: Assessment and Plan - Assessment (1) LONG (dyspnea on exertion) Code(s): R06.09 - Other forms of dyspnea Status: Acute Plan: Patient is an 79-year-old male with history of hypertension and hyperlipidemia. Patient presented to the ER with complaint of fatigue and worsening shortness of breath over the last several weeks. Patient complains of having had episode of chest pressure and worsening shortness of breath while attempting to mow his lawn. Symptoms improved with rest. Patient denies previous episodes of similar. In the ER, patient was noted to have a murmur consistent with aortic stenosis. Echocardiogram confirms severe aortic valve stenosis. Patient appears pale. Hemoglobin 7.0 g/dL noted on admission. Patient denies bright red blood per rectum or dark tarry stools. Patient admitted to [facility] for further evaluation and treatment. - transfused 2 units PRBCs - appreciate input from Cardiology - consider TAVR Cecal Mass Anemia - comgmt with GI - Hg 7.0 (08/16), 9.6 (08/18), 8.9 (08/21), 9.1 (08/22) - Pt transfused 2 units PRBCs (08/16/18) - EGD (08/18/18) --> normal EGD - Colonoscopy (08/18/18) performed by Dr. Magen Diaz - Cecal ulcer - Cecal mass - Colon polyps - Diverticulosis - Abdomen/Pelvis CT 08/18/18 12:58 1. 5.4 cm cecal mass lesion. No findings of regional adenopathy or hepatic metastasis. 2. There are 2 hypodense areas in the liver which were present back in 2012. These are both slightly larger but have imaging characteristics suggesting hemangioma. Multiphasic MR of the abdomen could be performed for further characterization if clinically warranted. 3. Patient is status post cholecystectomy. 4. 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 2-COLONIC MUCOSAL BIOPSY WITHOUT SIGNIFICANT HISTOPATHOLOGIC ABNORMALITY NEGATIVE FOR AN EPITHELIAL POLYP AND ATTACHED FECAL MATERIAL. 3-VILLOGLANDULAR ADENOMATOUS POLYP(S). 4-COLONIC MUCOSAL BIOPSIES WITH ADENOMATOUS POLYP(S). 5-FECAL MATERIAL. - Dr. Booth's discussed the case with General Surgery, Dr. Strickland 08/19, - Dr. Booth's discussed the case with cardiology Dr. Calzada 08/20/18 - S/P Balloon Valvuloplasty of Aortic Valve with improvement noted on intraoperative echocardiogram 08/20/18 - will likely require TAVR in the near future once recovered from ascending colon resection Pt undwent robot assisted right hemicolectomy 08/23 path: invasive adenoca with clear margins. no lymphovascular invasion identified diet per gen surg PT daily. try some reglan and phenergan. pt complains of nausea and some abd discomfort. discussed oob to chair with RN and try to get him to eat. ?dc later today. (2) Cecum mass: Code(s): K63.9 - Disease of intestine, unspecified Status: Acute (3) Severe aortic valve stenosis: Code(s): I35.0 - Nonrheumatic aortic (valve) stenosis Status: Acute Progress Note: Quality VTE Deep Vein Thrombosis/Pulmonary Embolism Present on Admission: No
--- NOTE | 2018-08-28 10:53 | P.PNGS ---
Subjective Interval history: He c/o pain and overall not feeling well this morning. He says he had a few bites of his breakfast this morning. WBC is now normal. Physical Exam Vital signs: Vital Signs 08/27/18 12:00 08/27/18 16:00 08/27/18 20:00 Temperature 98.4 F 99.4 F 98.3 F Pulse Rate 83 81 72 Respiratory Rate 18 18 18 Blood Pressure 142/63 H 132/60 140/64 Pulse Oximetry 95 95 96 08/28/18 00:00 08/28/18 04:00 08/28/18 08:00 Temperature 98.6 F 98.4 F 97.5 F L Pulse Rate 79 83 79 Respiratory Rate 18 18 18 Blood Pressure 163/72 H 161/72 H 177/74 H Pulse Oximetry 94 L 94 L 95 Intake & Output 08/27/18 08/28/18 08/28/18 18:59 06:59 18:59 Intake Total 840 / 840 240 / 240 Balance 840 / 840 240 / 240 Weight 81.2 kg Intake: Oral 840 / 840 240 / 240 Other: # Voids 3 3 Date of Last Bowel Movement 08/27/18 08/27/18 # Bowel Movements 1 Narrative: NAD, laying in bed nonlabored breathing Abd: soft, mild distention, minimal post op ttp, inc c/d/i - Urinary Catheter Management Indwelling Urethral Catheter Cath placed during this visit: yes Reason for continuing: Hourly intake/output Insertion date: 08/23/18 Insertion time: 14:25 Results - Labs 08/28/18 05:20 08/24/18 05:00 Laboratory Results - last 24 hr 08/28/18 05:20 WBC 10.3 RBC 3.35 L Hgb 9.1 L Hct 27.9 L MCV 83.2 MCH 27.3 MCHC 32.8 RDW 17.2 Plt Count 377 MPV 7.1 Neut % (Auto) 73.8 H Lymph % (Auto) 15.5 [place] % (Auto) 7.9 Eos % (Auto) 2.4 Baso % (Auto) 0.4 Neut # (Auto) 7.6 Lymph # (Auto) 1.6 [place] # (Auto) 0.8 Eos # (Auto) 0.2 Baso # (Auto) 0.0 WBC Differential . Differential Comment Auto diff final - Imaging Imaging: ITS Impressions Chest X-Ray 08/17/18 08:00 CONCLUSION: Persistent mild bibasilar infiltrates Abdomen/Pelvis CT 08/18/18 12:58 CONCLUSION: 1. 5.4 cm cecal mass lesion. No findings of regional adenopathy or hepatic metastasis. 2. There are 2 hypodense areas in the liver which were present back in 2012. These are both slightly larger but have imaging characteristics suggesting hemangioma. Multiphasic MR of the abdomen could be performed for further characterization if clinically warranted. 3. Patient is status post cholecystectomy. 4. 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 Diffuse coronary artery atherosclerotic calcifications with suspected hemodynamically significant stenoses. 2. Calcified aortic valve. 3. Cecal mass previously described. 4. Tiny bilateral pleural effusions. Assessment and Plan - Plan POD 5 robot assisted right colectomy for large cecal mass. Not feeling as well but appears stable without any major problems. WBC has normalized. Soft diet. PT OOB. DVT proph: SCDs. Lovenox daily. Path returned with invasive adenoca. T2, N0. CT chest was unnecessary due to recent TAVR study which was reviewed by DR. Mtz and neg for any pulmonary mets. Likely dc home soon.
[2018-08-28] MEDS: Enoxaparin Inj 40 MG/0.4 ML Syringe SQ SCH (17:54)
[2018-08-29] MEDS: Ketorolac Inj 30 MG/ML (IVP) Vial IV.PUSH SCH ×2 (00:53→06:18)
[2018-08-29] MEDS: Ferrous Sulfate 325 MG Tablet PO SCH (08:18)
[2018-08-29] MEDS: Polyethylene Glycol 3350 17 GM Packet PO SCH (08:18)
[2018-08-29] MEDS: Senna/Docusate Sodium 8.6/50 MG Tablet PO SCH (08:18)
[2018-08-29] MEDS: amLODIPine 10 MG Tablet PO SCH (08:18)
--- NOTE | 2018-08-29 11:41 | P.PNIM ---
Subjective Interval history: pt eager for dc Physical Exam Vital signs: Last Vital Signs Temp 98.3 F 08/29/18 08:00 Pulse 68 08/29/18 08:00 Resp 18 08/29/18 08:00 BP 151/67 H 08/29/18 08:00 Pulse Ox 96 08/29/18 10:54 Narrative: heart reg lung cta abds s/nt. incision approximated ext no edema Results Labs CBC & Chem 7: 08/28/18 05:20 08/24/18 05:00 Assessment and Plan Assessment (1) LONG (dyspnea on exertion): Code(s): R06.09 - Other forms of dyspnea Status: Acute Plan: Assessment and Plan - Assessment (1) LONG (dyspnea on exertion) Code(s): R06.09 - Other forms of dyspnea Status: Acute Plan: Patient is an 79-year-old male with history of hypertension and hyperlipidemia. Patient presented to the ER with complaint of fatigue and worsening shortness of breath over the last several weeks. Patient complains of having had episode of chest pressure and worsening shortness of breath while attempting to mow his lawn. Symptoms improved with rest. Patient denies previous episodes of similar. In the ER, patient was noted to have a murmur consistent with aortic stenosis. Echocardiogram confirms severe aortic valve stenosis. Patient appears pale. Hemoglobin 7.0 g/dL noted on admission. Patient denies bright red blood per rectum or dark tarry stools. Patient admitted to [facility] for further evaluation and treatment. - transfused 2 units PRBCs - appreciate input from Cardiology - consider TAVR Cecal Mass Anemia - comgmt with GI - Hg 7.0 (08/16), 9.6 (08/18), 8.9 (08/21), 9.1 (08/22) - Pt transfused 2 units PRBCs (08/16/18) - EGD (08/18/18) --> normal EGD - Colonoscopy (08/18/18) performed by Dr. Magen Diaz - Cecal ulcer - Cecal mass - Colon polyps - Diverticulosis - Abdomen/Pelvis CT 08/18/18 12:58 1. 5.4 cm cecal mass lesion. No findings of regional adenopathy or hepatic metastasis. 2. There are 2 hypodense areas in the liver which were present back in 2012. These are both slightly larger but have imaging characteristics suggesting hemangioma. Multiphasic MR of the abdomen could be performed for further characterization if clinically warranted. 3. Patient is status post cholecystectomy. 4. 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 2-COLONIC MUCOSAL BIOPSY WITHOUT SIGNIFICANT HISTOPATHOLOGIC ABNORMALITY NEGATIVE FOR AN EPITHELIAL POLYP AND ATTACHED FECAL MATERIAL. 3-VILLOGLANDULAR ADENOMATOUS POLYP(S). 4-COLONIC MUCOSAL BIOPSIES WITH ADENOMATOUS POLYP(S). 5-FECAL MATERIAL. - Dr. Booth's discussed the case with General Surgery, Dr. Strickland 08/19, - Dr. Booth's discussed the case with cardiology Dr. Calzada 08/20/18 - S/P Balloon Valvuloplasty of Aortic Valve with improvement noted on intraoperative echocardiogram 08/20/18 - will likely require TAVR in the near future once recovered from ascending colon resection Pt undwent robot assisted right hemicolectomy 08/23 path: invasive adenoca with clear margins. no lymphovascular invasion identified diet per gen surg PT daily. Pt eager for dc. refusing to eat hospital food. brought some eggs/black which he immediately vomited. try scheduled reglan today. liquids and food per his dc once jeet to tolerate food. (2) Cecum mass: Code(s): K63.9 - Disease of intestine, unspecified Status: Acute (3) Severe aortic valve stenosis: Code(s): I35.0 - Nonrheumatic aortic (valve) stenosis Status: Acute Progress Note: Quality VTE Deep Vein Thrombosis/Pulmonary Embolism Present on Admission: No
--- NOTE | 2018-08-29 13:04 | P.PNGS ---
Subjective Patient reports: feels better, pain is less, flatus, bowel movement, vomiting ( Feels well without pain; vomited breakfast, but feels better thereafter. Eating lunch now.) Physical Exam Vital signs: Vital Signs 08/28/18 16:00 08/28/18 20:00 08/29/18 00:00 Temperature 99 F 98.0 F 97.7 F Pulse Rate 78 76 83 Respiratory Rate 18 18 18 Blood Pressure 162/72 H 165/79 H 169/74 H Pulse Oximetry 94 L 94 L 95 08/29/18 04:00 08/29/18 08:00 08/29/18 10:54 Temperature 97.8 F 98.3 F Pulse Rate 68 68 Respiratory Rate 18 18 Blood Pressure 131/63 151/67 H Pulse Oximetry 93 L 93 L 96 08/29/18 12:00 Temperature 97.4 F L Pulse Rate 74 Respiratory Rate 18 Blood Pressure 123/60 Pulse Oximetry 96 Intake & Output 08/28/18 08/29/18 08/29/18 19:59 06:59 18:59 Intake Total Balance Weight Intake: Oral Other: # Voids Date of Last Bowel Movement 08/28/18 # Incontinent Bowel Movements - Routine Abdominal Exam Present: soft Comments: Abdominal exam is totally benign. - Urinary Catheter Management Indwelling Urethral Catheter Cath placed during this visit: yes Reason for continuing: Hourly intake/output Insertion date: 08/23/18 Insertion time: 14:25 Results - Labs 08/28/18 05:20 08/24/18 05:00 - Imaging Imaging: ITS Impressions Chest X-Ray 08/17/18 08:00 CONCLUSION: Persistent mild bibasilar infiltrates Abdomen/Pelvis CT 08/18/18 12:58 CONCLUSION: 1. 5.4 cm cecal mass lesion. No findings of regional adenopathy or hepatic metastasis. 2. There are 2 hypodense areas in the liver which were present back in 2012. These are both slightly larger but have imaging characteristics suggesting hemangioma. Multiphasic MR of the abdomen could be performed for further characterization if clinically warranted. 3. Patient is status post cholecystectomy. 4. 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 Diffuse coronary artery atherosclerotic calcifications with suspected hemodynamically significant stenoses. 2. Calcified aortic valve. 3. Cecal mass previously described. 4. Tiny bilateral pleural effusions. Assessment and Plan - Assessment (1) Cecum mass Code(s): K63.9 - Disease of intestine, unspecified Status: Acute Plan: POD # 5 S/P robotic right colectomy for carcinoma. Overall doing well, but had an episode of large emesis after breakfast this AM. Abdomen remains benign. Will likely be able to go home tomorrow if he is able to keep his diet down without further emesis.
[2018-08-29 14:37] LABS: Calcium 7.7 mg/dL (8.5-10.1); Carbon Dioxide 29.2 meq/L (21.0-32.0); Potassium 3.6 meq/L (3.5-5.1)
== END 2018-08-29 16:56 | disposition home or self-care (01) ==
LOC: NEPE 10:15 → NEDA 12:31 → N04 16:12 → HCIS 08-20 14:21 → HCPC 08-20 16:44 → N04 08-21 18:16 → N03 08-23 20:45 → N04 08-24 22:51
PROVIDERS: ADMIT Hospitalist; ATTEND Hospitalist
PROC: PANENDO (2018-08-18 12:01)
PROC: COLONOS (2018-08-18 12:01)